=== PATIENT | male | born 1960 | race Hispanic/Latino ===

== ENCOUNTER 2017-12-31 11:03 | Observation (INO) | payer OTHER ==
[2017-12-31 12:02] LABS: BUN Blood Urea Nitrogen 11 mg/dL (7-18); Bicarbonate 26 mmol/L (21-32); Glucose Level 143 mg/dL (74-106); Potassium 3.8 mmol/L (3.5-5.1); Sodium Level 138 mmol/L (136-145); Troponin (Emerg Dept Use Only) < 0.02 ng/mL (0.0-0.045)
[2017-12-31] MEDS ORDERED: NA CHLORIDE 0.9% 1,000 ML ONE (12:04)
[2017-12-31 12:11] LABS: Absolute Lymphocytes (CBC) 2.8 K/uL (0.7-4.9); Absolute Monocytes 0.8 K/uL (0.1-1.3); Absolute Neutrophil 4.7 K/uL (1.8-8.0); Eosinophils % 2.1 % (0-4.4); Hematocrit 45.5 % (39.6-49.0); Lymphocytes % 32.7 % (15.3-44.8); MCH 30.3 pg (27.0-35.0); MCV 85.8 fL (80-100); MPV 8.3 fL (7.6-11.3); Monocytes % 8.8 % (3.3-12.3); RBC Red Blood Cell Count 5.31 M/uL (4.33-5.43)
--- NOTE | 2017-12-31 12:16 | RAD REPORT ---
EXAM DESCRIPTION: CT - CTHCSPWOC - 12/31/2017 11:53 am CLINICAL HISTORY: Syncope, fall, head and neck injury, found on ground COMPARISON: None. TECHNIQUE: Axial 5 mm thick images of the head were obtained. Axial 2 mm thick images of the cervic al spine were obtained with sagittal and coronal reconstruction images generated and reviewed. All CT scans are performed using dose optimization technique as appropriate and may include automated exposure control or mA/KV adjustment according to patient size. FINDINGS: No intracranial hemorrhage, mass, edema or acute intracranial finding. No suspicion for acute infarct ion. No cortical edema or sulcal effacement identified. Patient has mild atrophy. There is prominent diminished attenuation throughout cerebral hemispheric white matter. This extends into the basal gang marcelino and thalamus. There is questionable involvement in the brainstem. This is most likely chronic isc hemic change but is advanced for the patient's age. Mastoid air cells are clear. Ethmoid air cell muc osal thickening seen. No air-fluid level in the paranasal sinuses. No globe or orbit abnormality seen . Cervical body height and alignment are normal. No disk space narrowing. No fracture or acute bony abn ormality. Multilevel endplate spurring changes are present. No paraspinal mass or hematoma. IMPRESSION: No hemorrhage or acute intracranial finding. Mild atrophy and chronic ischemic changes a re evident. Chronic ischemic pattern is advanced for the patient's age. Cervical spine degenerative change without acute finding. Negative CT cervical spine examination for acute or significant finding.
--- NOTE | 2017-12-31 12:28 | RAD REPORT ---
EXAM DESCRIPTION: Ligia Single View12/31/2017 12:13 pm CLINICAL HISTORY: Shortness breath COMPARISON: November 2016 FINDINGS: The lungs appear clear of acute infiltrate. The heart is normal size. Prominence of media stinum is secondary to mediastinal fat IMPRESSION: No acute abnormalities displayed
--- NOTE | 2017-12-31 12:30 | RAD REPORT ---
EXAM DESCRIPTION: RAD - Shoulder Right 2 View - 12/31/2017 12:12 pm CLINICAL HISTORY: Right shoulder pain FINDINGS: No fracture or dislocation is seen. Mild to moderate osteoarthritis involves the acromiocl avicular joint
--- NOTE | 2017-12-31 13:32 | EDPHYS ---
Physician Documentation [facility] Name: Andrey Wells Age: 57 yrs Sex: Male : 1960 Arrival Date: 12/31/2017 Time: 11:09 Bed 20 Private MD: ED Physician Garry Palomares HPI: 12/31 16:07 This 57 yrs old Male presents to ER via EMS with complaints of syncope. gs 16:07 The patient has experienced syncope, became unresponsive. Onset: The symptoms/episode gs began/occurred acutely, just prior to arrival. Duration: This was a single episode. Context: the episode(s) was witnessed, by co-worker(s), occurred at work, occurred while the patient was walking. Associated injury: Head/face: Neck: Right upper extremity: anterior aspect of right shoulder, pain, tenderness. Associated signs and symptoms: Pertinent negatives: agitation, ataxia, chest pain. Current symptoms: Currently, the patient is not experiencing any symptoms. Historical: - Allergies: 11:22 No Known Allergies; ch - Home Meds: 11:22 Lyrica Oral 1 cap 2 times per day [Active]; Tylenol #3 Oral every 4-6 hours [Active]; ch - PMHx: 11:22 Back pain; Myocardial infarction; periphernal neuropathy; ch - PSHx: 11:22 back surg; ch - Immunization history:: Adult Immunizations up to date. - Social history:: Smoking status: Patient/guardian denies using tobacco. - Ebola Screening: : Patient negative for fever greater than or equal to 101.5 degrees Fahrenheit, and additional compatible Ebola Virus Disease symptoms Patient denies exposure to infectious person Patient denies travel to an Ebola-affected area in the 21 days before illness onset No symptoms or risks identified at this time. ROS: 16:07 All other systems are negative. gs Exam: 16:07 Head/Face: Normocephalic, atraumatic. Eyes: Pupils equal round and reactive to light, gs extra-ocular motions intact. Lids and lashes normal. Conjunctiva and sclera are non-icteric and not injected. Cornea within normal limits. Periorbital areas with no swelling, redness, or edema. ENT: Nares patent. No nasal discharge, no septal abnormalities noted. Tympanic membranes are normal and external auditory canals are clear. Oropharynx with no redness, swelling, or masses, exudates, or evidence of obstruction, uvula midline. Mucous membranes moist. Chest/axilla: Normal chest wall appearance and motion. Nontender with no deformity. No lesions are appreciated. Cardiovascular: Regular rate and rhythm with a normal S1 and S2. No gallops, murmurs, or rubs. Normal PMI, no JVD. No pulse deficits. Respiratory: Lungs have equal breath sounds bilaterally, clear to auscultation and percussion. No rales, rhonchi or wheezes noted. No increased work of breathing, no retractions or nasal flaring. Abdomen/GI: Soft, non-tender, with normal bowel sounds. No distension or tympany. No guarding or rebound. No evidence of tenderness throughout. Back: No spinal tenderness. No costovertebral tenderness. Full range of motion. Skin: Warm, dry with normal turgor. Normal color with no rashes, no lesions, and no evidence of cellulitis. MS/ Extremity: Pulses equal, no cyanosis. Neurovascular intact. Full, normal range of motion. Neuro: Awake and alert, GCS 15, oriented to person, place, time, and situation. Cranial nerves II-XII grossly intact. Motor strength 5/5 in all extremities. Sensory grossly intact. Cerebellar exam normal. Normal gait. 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 16:07 ECG was reviewed by the Attending Physician. Vital Signs: 11:22 BP 144 / 85; Pulse 106; Resp 22; Temp 98.8; Pulse Ox 99% on R/A; Weight 99.79 kg; ch Height 5 ft. 6 in. (167.64 cm); Pain 9/10; 12:46 BP 135 / 74; Pulse 91; Resp 18; Temp 98.3; Pulse Ox 99% on R/A; Pain 6/10; ch 14:04 BP 139 / 70; Pulse 90; Resp 18; Pulse Ox 97% on R/A; mh5 11:22 Body Mass Index 35.51 (99.79 kg, 167.64 cm) MDM: 11:15 Patient medically screened. 16:07 Differential Diagnosis: cardiac arrhythmia, cerebrovascular accident, idiopathic gs syncope, vasovagal episode. Data reviewed: vital signs, nurses notes, lab test result(s), EKG, radiologic studies. Counseling: I had a detailed discussion with the patient and/or guardian regarding: the historical points, exam findings, and any diagnostic results supporting the discharge/admit diagnosis, lab results, radiology results, the need for further work-up and treatment in the hospital. Response to treatment: the patient's symptoms have markedly improved after treatment, and as a result, I will admit patient. 12/31 11:16 Order name: Basic Metabolic Panel; Complete Time: 12:23 12/31 11:16 Order name: CBC with Diff; Complete Time: : 12/31 11:16 Order name: Troponin (emerg Dept Use Only); Complete Time: 12: 12/31 11:16 Order name: XRAY Chest (1 view); Complete Time: 12: 12/31 15:17 Order name: Urine Dipstick--Ancillary (enter results); Complete Time: 16:06 bd 12/31 16:05 Order name: Glucose, Ancillary Testing; Complete Time: 16:06 EDNE 12/31 11:16 Order name: EKG; Complete Time: 11: 12/31 11:16 Order name: Cardiac monitoring; Complete Time: 11: 12/31 11:16 Order name: Shoulder Right (2 View) XRAY; Complete Time: 12: 12/31 11:42 Order name: Head C Spine Mpr Wo Con; Complete Time: 12:23 EDNE 12/31 11:16 Order name: EKG - Nurse/Tech; Complete Time: 11: 12/31 11:16 Order name: IV Saline Lock; Complete Time: 11: 12/31 11:16 Order name: Labs collected and sent; Complete Time: 11: 12/31 11:16 Order name: O2 Per Protocol; Complete Time: 11: 12/31 11:16 Order name: O2 Sat Monitoring; Complete Time: : 12/31 11:38 Order name: Finger Stick; Complete Time: 11:38 ch EC:07 Rate is 108 beats/min. Rhythm is regular, Sinus tachycardia. PA interval is normal. QRS gs interval is normal. QT interval is normal. T waves are Flattened. Clinical impression: NSR w/ Non-specific ST/T Changes. Interpreted by me. Administered Medications: 12:20 Drug: NS 0.9% 1000 ml Route: IV; Rate: 1 bolus; Site: left antecubital; 14:09 Follow up: IV Status: Completed infusion; IV Intake: 1000ml 15:11 Drug: Tylenol #3 (300 mg-30 mg) 1 tablet Route: PO; 15:37 Follow up: Response: No adverse reaction Point of Care Testing: Blood Glucose: 11:22 Blood Glucose: 141 mg/dL; Ranges: Critical Glucose Levels:Adult <50 mg/dl or >400 mg/dl <40 mg/dl or >180 mg/dl Disposition: 12/31/17 13:31 Hospitalization ordered by Avani Bridges for Inpatient Admission. Preliminary diagnosis is Syncope and collapse. - Bed requested for Telemetry/MedSurg (observation). - Status is Inpatient Admission. - Condition is Stable. - Problem is new. - Symptoms have improved. UTI on Admission? No Signatures: Dispatcher [employer] EDNE Gini Saldivar Aleshia Cerrato RN RN Garry Palomares MD MD Corrections: (The following items were deleted from the chart) 11:42 11:16 Head Brain Wo Cont+CT.RAD.BRZ ordered. EDMS EDMS 11:53 11:33 C Spine Wo Con+CT.RAD.BRZ ordered. EDNE EDMS 15:21 13:31 Hospitalization Ordered by Avani Bridges MD for Inpatient Admission. Preliminary diagnosis is Syncope and collapse. Bed requested for Telemetry/MedSurg (observation). Status is Inpatient Admission. Condition is Stable. Problem is new. Symptoms have improved. UTI on Admission? No. gs 16:07 15:21 12/31/2017 13:31 Hospitalization Ordered by Avani Bridges MD for Inpatient Admission. Preliminary diagnosis is Syncope and collapse. Bed requested for Telemetry/MedSurg (observation). Status is Inpatient Admission. Condition is Stable. Problem is new. Symptoms have improved. UTI on Admission? No. bd
--- NOTE | 2017-12-31 13:32 | ER ---
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 Presenting complaint: EMS states: toned out of syncope, pt was found laying down on the cement. IV initiated to L AC. pt was hyperventilating and appeared to be having a panic attack. c/o neck head and back pain. unable to close c collar around pt neck due to pt anatomy. c spine and spinal precautions initiated. +LOC, pt did not know why he was laying on the ground. Transition of care: patient was not received from another setting of care. Onset of symptoms was December 31, 2017 at 10:00. Risk Assessment: Do you want to hurt yourself or someone else? Patient reports no desire to harm self or others. Initial Sepsis Screen: Does the patient meet any 2 criteria? No. Patient's initial sepsis screen is negative. Does the patient have a suspected source of infection? No. Patient's initial sepsis screen is negative. Care prior to arrival: IV initiated. 20 GA, in the left antecubital area. 11:18 Method Of Arrival: EMS: [facility] 11:18 Acuity: KANDY 3 ch Triage Assessment: 11:22 General: Appears in no apparent distress. comfortable, Behavior is calm, cooperative, ch appropriate for age. Pain: Complains of pain in occipital area, base of the skull, back of neck and back Pain does not radiate. Pain currently is 9 out of 10 on a pain scale. Pain began suddenly. Neuro: Level of Consciousness is awake, alert, obeys commands, Oriented to person, place, time, situation, Equipment Maintenance Technician are equal bilaterally Moves all extremities. Speech is normal, Facial symmetry appears normal, Facial symmetry: tongue is midline, Pupils are PERRLA, Reports headache occipital area. Cardiovascular: Heart tones S1 S2 present Capillary refill < 3 seconds in bilateral fingers toes Clubbing of nail beds is absent Patient's skin is warm and dry. Pulses are all present. Edema is absent. Respiratory: Airway is patent Respiratory effort is even, unlabored, Breath sounds are clear bilaterally. GI: No signs and/or symptoms were reported involving the gastrointestinal system. Derm: Skin is pink, warm \\T\\ dry. Historical: - Allergies: : No Known Allergies; ch - Home Meds: : Lyrica Oral 1 cap 2 times per day [Active]; Tylenol #3 Oral every 4-6 hours [Active]; ch - PMHx: 11: Back pain; Myocardial infarction; periphernal neuropathy; ch - PSHx: : back surg; ch - Immunization history:: Adult Immunizations up to date. - Social history:: Smoking status: Patient/guardian denies using tobacco. - Ebola Screening: : Patient negative for fever greater than or equal to 101.5 degrees Fahrenheit, and additional compatible Ebola Virus Disease symptoms Patient denies exposure to infectious person Patient denies travel to an Ebola-affected area in the 21 days before illness onset No symptoms or risks identified at this time. Screenin:24 Abuse screen: Denies threats or abuse. Denies injuries from another. Nutritional ch screening: No deficits noted. Tuberculosis screening: No symptoms or risk factors identified. Fall Risk None identified. Assessment: 11:24 Reassessment: Patient appears in no apparent distress at this time. No changes from previously documented assessment. Patient and/or family updated on plan of care and expected duration. Pain level reassessed. Patient is alert, oriented x 3, equal unlabored respirations, skin warm/dry/pink. 11:37 Reassessment: Patient appears in no apparent distress at this time. Patient and/or ch family updated on plan of care and expected duration. Pain level reassessed. Patient is alert, oriented x 3, equal unlabored respirations, skin warm/dry/pink. pt states he feels a little better. pt transported to CT now, blood sent to lab. 12:03 Reassessment: Patient appears in no apparent distress at this time. awaiting pt return ch from radiology. 12:46 Reassessment: Patient appears in no apparent distress at this time. pt c/o headache ch still. erp notified, awaiting ct results. 13:06 Reassessment: Patient appears in no apparent distress at this time. Patient and/or ch family updated on plan of care and expected duration. Pain level reassessed. Patient is alert, oriented x 3, equal unlabored respirations, skin warm/dry/pink. awaiting erp to review results with pt. no s/s of distress. erp in room now to discuss results. 14:07 Reassessment: Patient appears in no apparent distress at this time. Patient and/or ch family updated on plan of care and expected duration. Pain level reassessed. Patient is alert, oriented x 3, equal unlabored respirations, skin warm/dry/pink. Patient states feeling better. Patient states symptoms have improved. 15:17 Reassessment: Patient appears in no apparent distress at this time. Patient and/or ch family updated on plan of care and expected duration. Pain level reassessed. Patient is alert, oriented x 3, equal unlabored respirations, skin warm/dry/pink. pt states he has had a headache since Saturday and its not any better now. erp notified, pt requests for "stronger pain medication". awaiting hospitalist to come round on pt. 15:38 Reassessment: Patient appears in no apparent distress at this time. Patient and/or ch family updated on plan of care and expected duration. Pain level reassessed. Patient is alert, oriented x 3, equal unlabored respirations, skin warm/dry/pink. report called to Marilyn. Vital Signs: 11:22 BP 144 / 85; Pulse 106; Resp 22; Temp 98.8; Pulse Ox 99% on R/A; Weight 99.79 kg; Height 5 ft. 6 in. (167.64 cm); Pain 9/10; 12:46 BP 135 / 74; Pulse 91; Resp 18; Temp 98.3; Pulse Ox 99% on R/A; Pain 6/10; ch 14:04 BP 139 / 70; Pulse 90; Resp 18; Pulse Ox 97% on R/A; mh5 11:22 Body Mass Index 35.51 (99.79 kg, 167.64 cm) ED Course: 11:09 Patient arrived in ED. iw 11:10 Garry Palomares MD is Attending Physician. gs 11:15 EKG done, by nanotechnology technician. reviewed by Garry Palomares MD. at1 11:18 Aleshia Cerrato, ROCKY is Primary Nurse. 11:21 Triage completed. 11:22 Arm band placed on left wrist. Patient placed in an exam room, on a stretcher, on court recording monitor, on pulse oximetry. EKG completed in triage. Results shown to MD. 11:24 Maintain EMS IV. Dressing intact. Good blood return noted. Site clean \\T\\ dry. Gauge \\T\\ site: 20G L AC. 11:24 maintained C spine and spinal precuations, pt educated on not moving his head and neck. 11:24 Patient has correct armband on for positive identification. Placed in gown. Bed in low position. Call light in reach. Side rails up X2. Adult w/ patient. environmental monitoring technician on. Pulse ox on. NIBP on. Warm blanket given. 11:38 Basic Metabolic Panel Sent. 11:38 CBC with Diff Sent. 11:38 Troponin (emerg Dept Use Only) Sent. 11:53 Head C Spine Mpr Wo Con In Process Unspecified. EDMS 12:09 XRAY Chest (1 view) In Process Unspecified. EDMS 12:09 Shoulder Right (2 View) XRAY In Process Unspecified. EDMS 13:31 Avani Bridges MD is Hospitalizing Provider. 15:39 No provider procedures requiring assistance completed. Patient admitted, IV remains in place. Administered Medications: 12:20 Drug: NS 0.9% 1000 ml Route: IV; Rate: 1 bolus; Site: left antecubital; 14:09 Follow up: IV Status: Completed infusion; IV Intake: 1000ml 15:11 Drug: Tylenol #3 (300 mg-30 mg) 1 tablet Route: PO; 15:37 Follow up: Response: No adverse reaction Point of Care Testing: Blood Glucose: 11:22 Blood Glucose: 141 mg/dL; Ranges: Intake: 14:09 IV: 1000ml; Total: 1000ml. Outcome: 13:31 Decision to Hospitalize by Provider. gs 15:39 Admitted to Med/surg accompanied by tech, via wheelchair, room 419, Report called to Marilyn 15:39 Condition: stable 15:39 Instructed on the need for admit. 16:07 Patient left the ED. Signatures: Dispatcher [employer] EDAleshia Cr RN RN ch Williams, Irene, RN RN Marilee Larson, office administration instructor EKG Tat1 Annalise Guardado 5 Palomares, Garry, MD MD gs
[2017-12-31] MEDS ORDERED: CODEINE 30MG/APAP 300MG TAB ONE (15:11)
[2017-12-31 15:27] LABS: Urine Blood NEGATIVE (NEG); Urine Glucose NEGATIVE (NEG); Urine Protein TRACE (NEG); Urine Specific Gravity 1.025 (1.005-1.030)
--- NOTE | 2017-12-31 15:27 | EKG ---
Test Date: 2017-12-31 Test Time: 11:13:54 Auto Leasing Manager: DENG MEASUREMENT RESULTS: Intervals: Rate: 108 DE: 158 QRSD: 82 QT: 358 QTc: 479 [place]: P: 41 DE: 158 QRS: 3 T: -1 INTERPRETIVE STATEMENTS: Sinus tachycardia Possible Left atrial enlargement Borderline ECG Compared to ECG 11/19/2016 01:40:14 Sinus rhythm no longer present T-wave abnormality no longer present Electronically Signed On 12-31-17 15:25:23 CDT by Hiro Clement
[2017-12-31] MEDS ORDERED: ONDANSETRON 4 MG/2 ML VIAL IV PRN (16:17)
--- NOTE | 2017-12-31 16:36 | P.HP ---
Certification for Inpatient Patient admitted to: Observation With expected LOS: <2 Midnights Patient will require the following post-hospital care: None Practitioner: I am a practitioner with admitting privileges, knowledge of patient current condition, hospital course, and medical plan of care. Services: Services provided to patient in accordance with Admission requirements found in Title 42 Section 412.3 of the Code of Federal Regulations Patient History Date of Service: 12/31/17 Primary Care Provider: Efren Bacon Reason for admission: Syncope History of Present Illness: This is a 49-year-old male with significant past medical history of back surgery presented to the ER after having an syncopal episode at work today. Patient stated that on Saturday patient started having some headache with nausea vomiting and abdominal pain and then this morning when he went to work he had a syncopal episode where he blacked out and fell. Patient does not remember the episode and states that he did not know that he fell he was found down by his ramp manager who brought him to the ER for further workup. Patient stated that similar episode happened to him in the past year ago where he came to the ER and nothing was found and was discharged home with the diagnosis of vasovagal syncope. Patient stated that usually he is in general state of health until this episode started happening. Patient denies having any fever chills chest pain shortness of breath or any other associated symptoms. Patient denies having any neurological deficits at this time as well. Allergies No Known Allergies Allergy (Unverified 11/19/16 03:07) Home Medications: Acetaminophen with Codeine [Acetaminophen-Cod #3 Tablet] 1 tab PO Q6HP PRN 11/19 Pregabalin [Lyrica*] 50 mg PO BID 11/19/16 - Past Medical/Surgical History Diabetic: No -: obesity -: NM -: chronic back pain - Family History Father -: Diabetes, Stroke Brother -: Cancer Mother Notes: Lupus Sister Notes: Lupus - Social History Alcohol use: Yes CD- Drugs: No Caffeine use: No Review of Systems 10-point ROS is otherwise unremarkable Physical Examination - Physical Exam General: Alert, In no apparent distress HEENT: Atraumatic, PERRLA, Mucous membr. moist/pink, EOMI, Sclerae nonicteric Neck: Supple, 2+ carotid pulse no bruit, No LAD, Without JVD or thyroid abnormality Respiratory: Clear to auscultation bilaterally, Normal air movement Cardiovascular: Regular rate/rhythm, Normal S1 S2 Gastrointestinal: Normal bowel sounds, No tenderness Musculoskeletal: No tenderness Integumentary: No rashes Neurological: Normal gait, Normal speech, Normal strength at 5/5 x4 extr, Normal tone, Normal affect Lymphatics: No axilla or inguinal lymphadenopathy - Studies Laboratory Data (last 24 hrs) 12/31/17 11:15: WBC 8.6, Hgb 16.1, Hct 45.5, Plt Count 304 12/31/17 11:15: Sodium 138, Potassium 3.8, BUN 11, Creatinine 1.10, Glucose 143 H Assessment and Plan - Problems (Diagnosis) (1) Syncopal episodes Current Visit: Yes Status: Acute Plan: 1 syncopal episode most likely vasovagal symptom at this time however will rule out acute abnormality -head CT is negative. Will get MRI if other workup is negative -will get carotid Doppler and echocardiogram -will get vitamin B12 vitamin-D RPR A1c and lipid -will also get orthostatics vitals at this time -physical therapy consulted. Fall precautions given. Qualifiers: Syncope type: unspecified Qualified Code(s): R55 - Syncope and collapse (2) Chronic back pain Onset Date: 11/19/16 Current Visit: No Status: Chronic Plan: Patient is currently on gabapentin will hold until we have the pathology for his syncopal episode Qualifiers: Back pain location: back pain in unspecified location Back pain laterality : bilateral Qualified Code(s): M54.9 - Dorsalgia, unspecified; G89.29 - Other chronic pain (3) Obesity Onset Date: 11/19/16 Current Visit: No Status: Chronic Qualifiers: Obesity type: due to excess calories Obesity classification: unspecified obesity classification Serious obesity comorbidity presence: without serious comorbidity Qualified Code(s): E66.09 - Other obesity due to excess calories (4) Tobacco abuse Onset Date: 11/19/16 Current Visit: No Status: Chronic Discharge Plan: Home Plan to discharge in: 48 Hours - Advance Directives Does patient have a Living Will: No Does patient have a Durable POA for Healthcare: No - Code Status/Comfort Care Code Status Assessed: Yes Critical Care: No
[2017-12-31 16:51] VITALS: O2SAT 97; BMI 34.0
[2017-12-31 17:27] LABS: RPR Titer ND
[2017-12-31] MEDS ORDERED: POTASSIUM CL SA 10 MEQ TAB PO ONE (18:00)
[2017-12-31] MEDS: NA CHLORIDE 0.9% 1,000 ML IV SCH ×2 (18:01→19:56)
[2017-12-31] MEDS: ACETAMINOPHEN 500 MG TAB PO PRN ×2 (18:03→22:09)
[2017-12-31 19:37] LABS: Urine Appearance CLEAR; Urine Bilirubin NEGATIVE (NEG); Urine Blood NEGATIVE (NEG); Urine Color YELLOW; Urine Glucose TRACE (NEG); Urine Protein NEGATIVE (NEG); Urine Specific Gravity 1.025 (1.005-1.030); Urine pH 5.5 (5.0-7.0)
[2017-12-31 19:40] LABS: Barbiturates NEGATIVE (NEGATIVE); Benzodiazepines NEGATIVE (NEGATIVE); Cocaine NEGATIVE (NEGATIVE); METHAMPHETAM NEGATIVE (NEGATIVE); Methadone NEGATIVE (NEGATIVE); Opiates POSITIVE (NEGATIVE); Phencyclidine NEGATIVE (NEGATIVE); THC Cannibis NEGATIVE (NEGATIVE)
[2017-12-31 20:03] LABS: Urine Microscopic Reflex NO UMIC
--- NOTE | 2017-12-31 20:28 | RAD REPORT ---
EXAM DESCRIPTION: - CP - 12/31/2017 7:37 pm CLINICAL HISTORY: Syncope COMPARISON: None. TECHNIQUE: Real-time sonographic evaluation of both carotid systems was performed. Doppler interroga tion was performed with waveform tracing bilaterally. FINDINGS: Normal high resistance waveforms are noted in both external carotid arteries. The common c arotid arteries and internal carotid arteries show normal low resistance waveforms. Mild calcified plaquing changes are present. There is no significant luminal narrowing. No dissection changes are seen. Peak systolic and end diastolic velocity values and the ICA/CCA ratios are in the non-hemodynamically significant range. Antegrade flow seen in both vertebral arteries. Velocity values and ratios were recorded and are retained in the patient's imaging records. IMPRESSION: Mild carotid bulb plaquing changes are present. No evidence of a hemodynamically significant stenosis.
[2017-12-31 23:52] LABS: RPR (Rapid Plasma Reagin) NON-REACT (NON-REACT)
[2018-01-01] MEDS: ACETAMINOPHEN 500 MG TAB PO PRN ×5 (03:03→21:36)
[2018-01-01 06:18] LABS: ALT/SGPT 42 U/L (12-78); AST/SGOT 33 U/L (15-37); Albumin 3.1 g/dL (3.4-5.0); Alkaline Phosphatase 80 U/L (45-117); BUN Blood Urea Nitrogen 9 mg/dL (7-18); Bicarbonate 27 mmol/L (21-32); Bilirubin Total 0.3 mg/dL (0.2-1.0); Glucose Level 121 mg/dL (74-106); Magnesium 2.4 mg/dL (1.8-2.4); Phosphorus 3.3 mg/dL (2.5-4.9); Potassium 4.2 mmol/L (3.5-5.1); Protein, Total 7.1 g/dL (6.4-8.2); Sodium Level 139 mmol/L (136-145)
[2018-01-01 06:39] LABS: Absolute Lymphocytes (CBC) 3.6 K/uL (0.7-4.9); Absolute Monocytes 0.7 K/uL (0.1-1.3); Absolute Neutrophil 3.2 K/uL (1.8-8.0); Eosinophils % 3.6 % (0-4.4); Hematocrit 40.8 % (39.6-49.0); Lymphocytes % 46.2 % (15.3-44.8); MCH 30.2 pg (27.0-35.0); MCV 86.4 fL (80-100); MPV 8.1 fL (7.6-11.3); Monocytes % 8.6 % (3.3-12.3); RBC Red Blood Cell Count 4.73 M/uL (4.33-5.43)
--- NOTE | 2018-01-01 11:51 | P.PN ---
Subjective Date of Service: 01/01/18 Primary Care Provider: [facility] Chief Complaint: Syncope pt seen and examined at bedside with RN. Complain of having BOO still. Case DW Patient and family at bedside. Awaiting MRI at this time Review of Systems 10-point ROS is otherwise unremarkable Physical Examination - Vital Signs Temperature: 97.5 F Blood Pressure: 149/77 Pulse: 72 Respirations: 16 Pulse Ox (%): 94 - Physical Exam General: Alert, In no apparent distress HEENT: Atraumatic, PERRLA, EOMI Neck: Supple, JVD not distended Respiratory: Clear to auscultation bilaterally, Normal air movement Cardiovascular: Regular rate/rhythm, Normal S1 S2 Gastrointestinal: Normal bowel sounds, No tenderness Musculoskeletal: No tenderness Integumentary: No rashes Neurological: Normal speech, Normal tone, Normal affect Lymphatics: No axilla or inguinal lymphadenopathy - Studies Laboratory Data (last 24 hrs) 12/31/17 11:15: WBC 8.6, Hgb 16.1, Hct 45.5, Plt Count 304 12/31/17 11:15: Sodium 138, Potassium 3.8, BUN 11, Creatinine 1.10, Glucose 143 H Medications List Reviewed: Yes Assessment And Plan - Current Problems (Diagnosis) (1) Syncopal episodes Onset Date: 01/01/18 Current Visit: Yes Status: Acute Plan: 1 syncopal episode most likely vasovagal symptom at this time however will rule out acute abnormality -head CT is negative. MRI pending at time. -Pending carotid Doppler and echocardiogram -Pending vitamin B12 vitamin-D RPR A1c and lipid -physical therapy consulted. Fall precautions given. Qualifiers: Syncope type: unspecified Qualified Code(s): R55 - Syncope and collapse (2) Chronic back pain Onset Date: 11/19/16 Current Visit: No Status: Chronic Plan: Patient is currently on gabapentin will hold until we have the pathology for his syncopal episode Qualifiers: Back pain location: back pain in unspecified location Back pain laterality : bilateral Qualified Code(s): M54.9 - Dorsalgia, unspecified; G89.29 - Other chronic pain (3) Obesity Onset Date: 11/19/16 Current Visit: No Status: Chronic Qualifiers: Obesity type: due to excess calories Obesity classification: unspecified obesity classification Serious obesity comorbidity presence: without serious comorbidity Qualified Code(s): E66.09 - Other obesity due to excess calories (4) Tobacco abuse Onset Date: 11/19/16 Current Visit: No Status: Chronic Discharge Plan: Home Plan to discharge in: 48 Hours - Code Status/Comfort Care Code Status Assessed: Yes Critical Care: No
[2018-01-01] MEDS: NA CHLORIDE 0.9% 1,000 ML IV SCH ×2 (12:17→21:37)
--- NOTE | 2018-01-01 12:44 | ECHO ---
HEIGHT: 5 ft 1 in WEIGHT: 180 lb 0 oz DATE OF STUDY: 01/01/[address]: Avani Bridges MD 2-DIMENSIONAL: YES M.MODE: YES DOPPLER: YES COLOR FLOW: YES TDS: NO PORTABLE: NO DEFINITY: NO BUBBLE STUDY: NO DIAGNOSIS: SYNCOPE CARDIAC HISTORY: CATHERIZATION: NO SURGERY: NO PROSTHETIC VALVE: NO PACEMAKER: NO MEASUREMENTS (cm) DIASTOLIC (NORMALS) SYSTOLIC (NORMALS) IVSd 1.0 (0.6-1.2) LA Diam 4.1 (1.9-4.0) LVEF 67% LVIDd 5.2 (3.5-5.7) LVIDs 3.2 (2.0-3.5) %FS 37% LVPWd 1.1 (0.6-1.2) Ao Diam 3.3 (2.0-3.7) 2 DIMENSIONAL ASSESSMENT: RIGHT ATRIUM: NORMAL LEFT ATRIUM: MILDLY DILATED RIGHT VENTRICLE: NORMAL LEFT VENTRICLE: NORMAL TRICUSPID VALVE: NORMAL MITRAL VALVE: NORMAL PULMONIC VALVE: NORMAL AORTIC VALVE: NORMAL PERICARDIAL EFFUSION: NONE AORTIC ROOT: NORMAL LEFT VENTRICULAR WALL MOTION: NORMAL DOPPLER/COLOR FLOW: NORMAL COMMENTS: MILDLY DILATED LEFT ATRIUM, OTHERWISE NORMAL 2D ECHOCARDIOGRAM WITH DOPPLER. TECHNOLOGIST: Julianna NUÑEZ
--- NOTE | 2018-01-01 16:44 | RAD REPORT ---
EXAM DESCRIPTION: MRI - Brain W/Wo Cont - 01/01/2018 4:16 pm CLINICAL HISTORY: Headache CVA COMPARISON: MRA Head Wo Cont dated 01/01/2018; MRA Neck W/Wo Cont dated 01/01/2018; Head C Spine Mpr W o Con dated 12/31/2017; Carotid Artery Bilateral dated 12/31/2017 TECHNIQUE: Multi-sequence, multiplanar MR imaging of the brain was performed with contrast. FINDINGS: No intracranial hemorrhage, hydrocephalus, extra-axial fluid collection or acute infarctio n.Moderate areas of T2 and FLAIR hyperintensity in the periventricular region and deep white matter i s noted. No edema or shift of midline structures. No intracranial mass. DWI is negative for acute CVA . The midline structures are normally formed. Mild mucoperiosteal thickening is seen involving the ethm oid air cells and both sphenoid sinuses. Post-contrast images show no abnormal enhancement to suggest tumor or infection. IMPRESSION: Areas of T2 and FLAIR hyperintensity in the periventricular and deep white matter noted, favored to represent somewhat advanced for age chronic microvascular ischemic changes. No acute CVA identified. No pathologic post-contrast enhancement suspected.
--- NOTE | 2018-01-01 16:48 | RAD REPORT ---
EXAM DESCRIPTION: MRI - MRA Neck W/Wo Cont - 01/01/2018 4:16 pm CLINICAL HISTORY: BOO CVA COMPARISON: Carotid Artery Bilateral dated 12/31/2017 FINDINGS: Contrast enhance 2D [id number] MR angiography of the neck vessels was performed. Moderate narrowing of the left carotid bulb is identified with luminal narrowing estimated at 50-60%. No significant right-sided carotid stenosis identified. Antegrade flow is seen in both vertebral arteries. IMPRESSION: Moderate atherosclerotic narrowing of the left carotid bulb is seen estimated at 50-60%.
--- NOTE | 2018-01-01 18:04 | RAD REPORT ---
EXAM DESCRIPTION: MRI - MRA Head Wo Cont - 01/01/2018 4:15 pm CLINICAL HISTORY: Syncope COMPARISON: None. TECHNIQUE: Magnetic resonance angiogram of the head was performed. 3D MIPS reconstruction performed FINDINGS: The visualized anterior cerebral, middle cerebral, posterior cerebral, basilar and distal internal carotid arteries do not demonstrate a significant stenosis. An aneurysm is not seen IMPRESSION: Unremarkable MRA head
[2018-01-02] MEDS: ACETAMINOPHEN 500 MG TAB PO PRN ×2 (02:25→09:12)
[2018-01-02 06:40] LABS: Absolute Lymphocytes (CBC) 3.6 K/uL (0.7-4.9); Absolute Monocytes 0.7 K/uL (0.1-1.3); Absolute Neutrophil 3.5 K/uL (1.8-8.0); Basophils % 1.2 % (0-1.3); Eosinophils % 3.5 % (0-4.4); Hematocrit 42.1 % (39.6-49.0); Lymphocytes % 43.7 % (15.3-44.8); MCH 30.3 pg (27.0-35.0); MCV 86.6 fL (80-100); MPV 8.5 fL (7.6-11.3); RBC Red Blood Cell Count 4.86 M/uL (4.33-5.43)
[2018-01-02 06:48] LABS: ALT/SGPT 42 U/L (12-78); AST/SGOT 33 U/L (15-37); Albumin 3.2 g/dL (3.4-5.0); Alkaline Phosphatase 76 U/L (45-117); BUN Blood Urea Nitrogen 9 mg/dL (7-18); Bicarbonate 26 mmol/L (21-32); Bilirubin Total 0.3 mg/dL (0.2-1.0); Glucose Level 107 mg/dL (74-106); Protein, Total 7.1 g/dL (6.4-8.2); Sodium Level 137 mmol/L (136-145)
[2018-01-02] MEDS: NA CHLORIDE 0.9% 1,000 ML IV SCH ×2 (08:17→09:19)
[2018-01-02 11:16] VITALS: BP 158/85; TEMP 97.5
--- NOTE | 2018-01-02 14:11 | P.SSS ---
Patient History Date of Service: 01/02/18 Primary Care Provider: [place] Ar[facility] Reason for admission: Syncope History of Present Illness: This is a 49-year-old male with significant past medical history of back surgery presented to the ER after having an syncopal episode at work today. Patient stated that on Saturday patient started having some headache with nausea vomiting and abdominal pain and then this morning when he went to work he had a syncopal episode where he blacked out and fell. 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 Patient stated that similar episode happened to him in the past year ago where he came to the ER and nothing was found and was discharged home with the diagnosis of vasovagal syncope. Patient stated that usually he is in general state of health until this episode started happening. Patient denies having any fever chills chest pain shortness of breath or any other associated symptoms. Patient denies having any neurological deficits at this time as well. Allergies No Known Allergies Allergy (Verified 12/31/17 19:00) Home Medications: Acetaminophen with Codeine [Acetaminophen-Cod #3 Tablet] 1 tab PO Q6HP PRN 11/19 Pregabalin [Lyrica*] 50 mg PO BID 11/19/16 Aspirin 81 mg PO DAILY #30 tab.chew 01/02/18 Atorvastatin Calcium [Lipitor] 40 mg PO BEDTIME #30 tab 01/02/18 - Past Medical/Surgical History Has patient received pneumonia vaccine in the past: No Diabetic: No -: obesity -: NM -: chronic back pain -: Peripheral neuropathy -: Back surgery - Family History Father -: Diabetes, Stroke Brother -: Cancer Mother Notes: Lupus Sister History Unknown: Yes Notes: Lupus - Social History Smoking Status: Current some day smoker Alcohol use: Yes CD- Drugs: No Caffeine use: No Place of Residence: Home Review of Systems 10-point ROS is otherwise unremarkable Physical Examination - Vital Signs Temperature: 97.5 F Blood Pressure: 158/85 Pulse: 74 Respirations: 18 Pulse Ox (%): 95 - Physical Exam General: Alert, In no apparent distress HEENT: Atraumatic, PERRLA, Mucous membr. moist/pink, EOMI, Sclerae nonicteric Neck: Supple, 2+ carotid pulse no bruit, No LAD, Without JVD or thyroid abnormality Respiratory: Clear to auscultation bilaterally, Normal air movement Cardiovascular: Regular rate/rhythm, Normal S1 S2 Gastrointestinal: Normal bowel sounds, No tenderness Musculoskeletal: No tenderness Integumentary: No rashes Neurological: Normal gait, Normal speech, Normal strength at 5/5 x4 extr, Normal tone, Normal affect Lymphatics: No axilla or inguinal lymphadenopathy - Diagnosis (Problem(s)) (1) Syncopal episodes Onset Date: 01/01/18 Status: Acute Qualifiers: Syncope type: unspecified Qualified Code(s): R55 - Syncope and collapse (2) Chronic back pain Onset Date: 11/19/16 Status: Chronic Qualifiers: Back pain location: back pain in unspecified location Back pain laterality : bilateral Qualified Code(s): M54.9 - Dorsalgia, unspecified; G89.29 - Other chronic pain (3) Obesity Onset Date: 11/19/16 Status: Chronic Qualifiers: Obesity type: due to excess calories Obesity classification: unspecified obesity classification Serious obesity comorbidity presence: without serious comorbidity Qualified Code(s): E66.09 - Other obesity due to excess calories (4) Tobacco abuse Onset Date: 11/19/16 Status: Chronic Treatment Summary: Overall during the hospital stay patient remained stable The patient was initially admitted to the hospital for syncopal episode. Patient had extensive workup done here in the hospital which includes head CT, MRI, echocardiogram, carotid Doppler, an extensive lab work as well. Patient imaging studies were all within normal limits without any acute abnormalities. MRI of the head was consistent with chronic ischemic changes with no acute CVA. Carotid Doppler was consistent with left-sided carotid bulb with 50-60% stenosis. Echocardiogram was within normal limits. Lab work was negative except hyperlipidemia. Patient orthostatics hypertension was also checked here in the hospital. Patient syncopal episode was most likely secondary to vasovagal symptoms due to high blood pressure in her along with working out in the heat. Patient was educated extensively on the need for diet and exercise and starting medications for stroke prevention in the future with aspirin and Lipitor. Patient's family demonstrated understanding and thus was discharged home under stable condition. Patient's blood pressure did stabilize here in the hospital thus he was not discharged on any blood pressure medication. Patient was asked to follow up with his primary care provider with a blood pressure log on if needed will need to be started on blood pressure medication at that time. Patient was also educated extensively on previous chronic ischemic changes on his MRI and the need for continued Lipitor and aspirin and the need to lose some weight to decrease the risk for CVA in the future. Patient Mr. harris and thus was discharged home under stable condition - Disposition Disposition: ROUTINE DISCHARGE Condition: GOOD Patient Discharge Instructions: Please f.u with PCP and cardiology in 1 week post discharge. Please f.u with neurology in 1 month post discharge if no resolution of BOO. New medication. ASA daily. Lipitor 40mg daily Diet: Regular Activity: Ad allan
== END 2018-01-02 13:47 | disposition home or self-care (01) ==
LOC: ER 11:03 → 4TH 15:55
PROVIDERS: ADMIT Family Medicine; ATTEND Family Medicine
DX: R55 Syncope and collapse (principal); G89.29 Other chronic pain; M54.89 Other dorsalgia; I25.2 Old myocardial infarction; E66.9 Obesity, unspecified; Z68.34 Body mass index [BMI] 34.0-34.9, adult; F17.210 Nicotine dependence, cigarettes, uncomplicated; Z79.82 Long term (current) use of aspirin
CPT/HCPCS: 36415 ×3; 70450; 70544; 70549; 70553; 71045; 72125; 73030; 80048; 80053 ×2; 80061; 80307 ×8; 81003 ×2; 82306; 82607; 82962; 83036; 83735; 84100; 84484; 85025 ×3; 86592; 87086; 87088; 93005; 93306; 93880; 96360; 96361; 99285; A9577; G0378 ×2; J7030 ×6

== ENCOUNTER 2019-03-24 18:35 | Emergency (ER) | payer OTHER ==
--- NOTE | 2019-03-24 19:03 | RAD REPORT ---
EXAM DESCRIPTION: CT - [id number] - 03/24/2019 6:47 pm CLINICAL HISTORY: Trauma, blunt force trauma, head and neck injury, head and neck pain COMPARISON: CT study December 2017 TECHNIQUE: Axial 5 mm thick images of the head were obtained. Axial 2 mm thick images of the cervic al spine were obtained with sagittal and coronal reconstruction images generated and reviewed. All CT scans are performed using dose optimization technique as appropriate and may include automated exposure control or mA/KV adjustment according to patient size. FINDINGS: No intracranial hemorrhage, mass, edema or acute intracranial finding. No acute cortical based infarc tion. No cortical edema or sulcal effacement. No extra-axial fluid collections. Mastoid air cells and paranasal sinuses are clear. No globe or orbit abnormality seen. Diminished attenuation throughout t he white matter is present similar to comparison. This chronic ischemic pattern is prominent for age. Mild volume loss changes are also evident. Cervical body height and alignment are normal. No disk space narrowing. No fracture or acute bony abn ormality. Patient has very large midline and left-side anterior spurring. There is bridging across C4 -T1. Central canal detail is inherently limited. No paraspinal mass or hematoma. IMPRESSION: No hemorrhage, edema or other acute intracranial finding. Patient has mild atrophy and moderate chronic ischemic changes that are stable from 2018 but are cons idered advanced for age. Prominent cervical spine degenerative change similar to comparison. No acute finding.
[2019-03-24] MEDS ORDERED: ONDANSETRON 4 MG/2 ML VIAL ONE (19:13)
[2019-03-24] MEDS ORDERED: FENTANYL CITR 100 MCG/2 ML ONE (19:13)
--- NOTE | 2019-03-24 19:50 | ER ---
Nurse's Notes [facility] Name: Andrey Wells Age: 58 yrs Sex: Male : 1960 Arrival Date: 03/24/2019 Time: 18:38 Bed 4 Private MD: Diagnosis: Sprain of ligaments of cervical spine Presentation: 03/24 18:39 Presenting complaint: EMS states: CABINET FELL ON HEAD, CERVICAL PAIN, -LOC. Transition bp of care: patient was not received from another setting of care. Mechanism of Injury: The problem was sustained at home, resulted from a direct blow, furniture. Onset of symptoms was March 24, 2019 at 18:00. Risk Assessment: Do you want to hurt yourself or someone else? Patient reports no desire to harm self or others. Initial Sepsis Screen: Does the patient meet any 2 criteria? HR > 90 bpm. Does the patient have a suspected source of infection? No. Patient's initial sepsis screen is negative. Care prior to arrival: None. 18:39 Method Of Arrival: EMS: [facility] bp 18:39 Acuity: KANDY 4 bp Triage Assessment: 18:41 General: Appears in no apparent distress. comfortable, Behavior is cooperative, bp appropriate for age, anxious. Pain: Complains of pain in back of head and back of neck. EENT: No deficits noted. Neuro: Level of Consciousness is awake, alert, obeys commands, Oriented to person, place, time, situation, Appropriate for age Reports headache. Cardiovascular: No deficits noted. Respiratory: No deficits noted. GI: No signs and/or symptoms were reported involving the gastrointestinal system. : No signs and/or symptoms were reported regarding the genitourinary system. Derm: No deficits noted. Musculoskeletal: No deficits noted. Historical: - Allergies: 18:41 No Known Allergies; bp - PMHx: 18:41 Back pain; Myocardial infarction; periphernal neuropathy; bp - Immunization history:: Adult Immunizations up to date. - Social history:: Smoking status: unknown. - Ebola Screening: : No symptoms or risks identified at this time. Screenin:43 Abuse screen: Denies threats or abuse. Denies injuries from another. Nutritional bp screening: No deficits noted. Tuberculosis screening: No symptoms or risk factors identified. Fall Risk None identified. Assessment: 18:42 General: SEE TRIAGE NOTE. bp 20:23 Reassessment: Patient appears in no apparent distress at this time. Patient is alert, ao oriented x 3, equal unlabored respirations, skin warm/dry/pink. Critical care time stopped, patient has stabilized. Instructions given to patient. Patient agree with POC and to follow up with PCP. No questions at this time. Vital Signs: 18:41 BP 170 / 91; Pulse 102; Resp 18; Temp 97.5(O); Pulse Ox 98% on R/A; dh3 [place] Coma Score: 18:39 Eye Response: spontaneous(4). Verbal Response: oriented(5). Motor Response: obeys bp commands(6). Total: 15. ED Course: 18:38 Patient arrived in ED. bp 18:39 Rhett Em PA is PHCP. jr8 18:39 Dony Palumbo MD is Attending Physician. jr8 18:40 Triage completed. bp 18:41 Arm band placed on. bp 18:43 Patient has correct armband on for positive identification. Bed in low position. Call bp light in reach. Side rails up X2. 18:44 Miguel Jones, ROCKY is Primary Nurse. bp 18:59 Inserted saline lock: 20 gauge in right forearm, using aseptic technique. dh3 20:22 No provider procedures requiring assistance completed. IV discontinued, intact, ao bleeding controlled, No redness/swelling at site. Pressure dressing applied. Administered Medications: 19:23 Drug: fentaNYL (PF) 75 mcg Route: IVP; Site: right wrist; jb4 19:23 Drug: Zofran 4 mg Route: IVP; Site: right wrist; jb4 Outcome: 19:49 Discharge ordered by . jr8 20:22 Discharged to home ambulatory. ao 20:22 Condition: stable 20:22 Discharge instructions given to patient, Instructed on discharge instructions, follow up and referral plans. the need for admit, Demonstrated understanding of instructions, follow-up care, medications, Prescriptions given X 3. 20:24 Patient left the ED. ao Signatures: Rhett Em PA PA jr8 Mando Barron RN RN ao Bryson, James, RN RN jb4 Heidi Diaz 3 Miguel Jones, ROCKY RN bp
--- NOTE | 2019-03-24 19:50 | EDPHYS ---
Physician Documentation [facility] Name: Andrey Wells Age: 58 yrs Sex: Male : 1960 Arrival Date: 03/24/2019 Time: 18:38 Bed 4 Private MD: ED Physician Dony Palumbo HPI: 03/24 18:44 This 58 yrs old Male presents to ER via EMS with complaints of Closed Head jr8 Injury-Adult. 18:44 The patient or guardian complains of decreased range of motion, pain. The symptoms are jr8 located at the C3, C4, C5 and C6. Onset: The symptoms/episode began/occurred acutely, today. Context: The problem was sustained at home, The neck injury/problem resulted from a direct blow. Associated signs and symptoms: The patient has no apparent associated signs or symptoms. The pain does not radiate. Modifying factors: The symptoms are alleviated by nothing. the symptoms are aggravated by movement. Severity of symptoms: At their worst the symptoms were moderate, in the emergency department the symptoms are unchanged. The patient has not experienced similar symptoms in the past. The patient has not recently seen a physician. Patient stated that he just sat down on the toilet to use the bathroom. Stated that the cabinets above him detached from wall and landed directly on his head. Has pain to neck since incident. Denies focal neurologic deficits of the extremities. Denies LOC . Historical: - Allergies: 18:41 No Known Allergies; bp - PMHx: 18:41 Back pain; Myocardial infarction; periphernal neuropathy; bp - Immunization history:: Adult Immunizations up to date. - Social history:: Smoking status: unknown. - Ebola Screening: : No symptoms or risks identified at this time. ROS: 18:44 Eyes: Negative for injury, pain, redness, and discharge, ENT: Negative for injury, jr8 pain, and discharge, Cardiovascular: Negative for chest pain, palpitations, and edema, Respiratory: Negative for shortness of breath, cough, wheezing, and pleuritic chest pain, Abdomen/GI: Negative for abdominal pain, nausea, vomiting, diarrhea, and constipation, Back: Negative for injury and pain, MS/Extremity: Negative for injury and deformity, Skin: Negative for injury, rash, and discoloration, Neuro: Negative for headache, weakness, numbness, tingling, and seizure. 18:44 Neck: Positive for pain with movement, pain at rest, stiffness, tenderness, bony tenderness. Exam: 18:44 Head/Face: Normocephalic, atraumatic. Eyes: Pupils equal round and reactive to light, jr8 extra-ocular motions intact. Lids and lashes normal. Conjunctiva and sclera are non-icteric and not injected. Cornea within normal limits. Periorbital areas with no swelling, redness, or edema. ENT: Nares patent. No nasal discharge, no septal abnormalities noted. Tympanic membranes are normal and external auditory canals are clear. Oropharynx with no redness, swelling, or masses, exudates, or evidence of obstruction, uvula midline. Mucous membranes moist. Chest/axilla: Normal chest wall appearance and motion. Nontender with no deformity. No lesions are appreciated. Cardiovascular: Regular rate and rhythm with a normal S1 and S2. No gallops, murmurs, or rubs. Normal PMI, no JVD. No pulse deficits. Respiratory: Lungs have equal breath sounds bilaterally, clear to auscultation and percussion. No rales, rhonchi or wheezes noted. No increased work of breathing, no retractions or nasal flaring. Abdomen/GI: Soft, non-tender, with normal bowel sounds. No distension or tympany. No guarding or rebound. No evidence of tenderness throughout. Back: No spinal tenderness. No costovertebral tenderness. Full range of motion. Skin: Warm, dry with normal turgor. Normal color with no rashes, no lesions, and no evidence of cellulitis. MS/ Extremity: Pulses equal, no cyanosis. Neurovascular intact. Full, normal range of motion. Neuro: Awake and alert, GCS 15, oriented to person, place, time, and situation. Cranial nerves II-XII grossly intact. Motor strength 5/5 in all extremities. Sensory grossly intact. Cerebellar exam normal. Normal gait. 18:44 Neck: External neck: is normal, C-spine: vertebral tenderness, that is moderate, appreciated at C3, C4, C5 and C6, Thyroid: appears normal, Trachea: is midline with no obvious abnormalities, ROM/movement: pain, that is moderate, with any movement, limited range of motion, that is moderate, in any direction, Lymph nodes: no appreciated lymphadenopathy. Vital Signs: 18:41 BP 170 / 91; Pulse 102; Resp 18; Temp 97.5(O); Pulse Ox 98% on R/A; dh3 [place] Coma Score: 18:39 Eye Response: spontaneous(4). Verbal Response: oriented(5). Motor Response: obeys bp commands(6). Total: 15. MDM: 18:39 Patient medically screened. jr8 19:15 Data reviewed: vital signs, nurses notes, radiologic studies, CT scan. Data jr8 interpreted: Pulse oximetry: on room air is 98 %. Interpretation: normal. Counseling: I had a detailed discussion with the patient and/or guardian regarding: the historical points, exam findings, and any diagnostic results supporting the discharge/admit diagnosis, radiology results, the need for outpatient follow up, a family practitioner, to return to the emergency department if symptoms worsen or persist or if there are any questions or concerns that arise at home. ED course: Discussed with patient that there are no acute intracranial or cervical findings on CT. No focal deficits at this time. Will treat with NSAIDS and muscle relaxant for now. If he were to have worsening of symptoms, would need MRI. 03/24 18:39 Order name: CT Head C Spine jr8 03/24 19:11 Order name: CT; Complete Time: 19:14 EDMS 03/24 18:39 Order name: IV; Complete Time: 19:01 jr8 Administered Medications: 19:23 Drug: fentaNYL (PF) 75 mcg Route: IVP; Site: right wrist; jb4 19:23 Drug: Zofran 4 mg Route: IVP; Site: right wrist; jb4 Disposition: 21:22 Co-signature as Attending Physician, Dony Palumbo MD I agree with the assessment and wa plan of care. Disposition: 03/24/19 19:49 Discharged to Home. Impression: Sprain of ligaments of cervical spine. - Condition is Stable. - Discharge Instructions: Cervical Sprain. - Prescriptions for meloxicam 15 mg Oral tablet - take 1 tablet by ORAL route once daily; 7 tablet. Zanaflex 4 mg Oral Tablet - take 1 tablet by ORAL route every 8 hours As needed; 20 tablet. Medrol (Augie) 4 mg Oral Tablets, Dose Pack - take 1 tablet by ORAL route as directed - follow package instructions; 1 packet. - Medication Reconciliation Form, Thank You Letter, Antibiotic Education, Prescription Opioid Use form. - Follow up: Private Physician; When: 5 - 6 days; Reason: Recheck today's complaints, Continuance of care, Re-evaluation by your physician. - Problem is new. - Symptoms have improved. Signatures: Dispatcher [employer] EDMS Rhett Em PA PA jr8 Mando Barron, RN RN Patric Arriola RN RN jb4 Dony Palumbo MD MD wa Peltier, Brian RN RN bp Corrections: (The following items were deleted from the chart) 20:24 19:49 03/24/2019 19:49 Discharged to Home. Impression: Sprain of ligaments of cervical ao spine. Condition is Stable. Forms are Medication Reconciliation Form, Thank You Letter, Antibiotic Education, Prescription Opioid Use. Follow up: Private Physician; When: 5 - 6 days; Reason: Recheck today's complaints, Continuance of care, Re-evaluation by your physician. Problem is new. Symptoms have improved. jr8
[2019-03-24 20:37] VITALS: BP 170/91; TEMP 97.5; O2SAT 98
== END 2019-03-24 20:24 | disposition home or self-care (01) ==
LOC: ER 18:35
DX: S13.4XXA Sprain of ligaments of cervical spine, initial encounter (principal); W22.8XXA Striking against or struck by other objects, initial encounter; Y93.89 Activity, other specified; Y92.002 Bathroom of unspecified non-institutional (private) residence as the place of occurrence of the external cause; I25.2 Old myocardial infarction
CPT/HCPCS: 70450; 72125; 96375; 96374; 99284; J3010; J2405

== ENCOUNTER 2019-11-18 17:07 | Emergency (ER) | payer OTHER ==
[2019-11-18] MEDS ORDERED: METHYLPREDNISOLONE 40 MG INJ ONE (18:09)
[2019-11-18 18:28] LABS: Absolute Lymphocytes (CBC) 3.1 K/uL (0.7-4.9); Hematocrit 43.3 % (39.6-49.0); Lymphocytes % 42.7 % (15.3-44.8); MPV 7.9 fL (7.6-11.3); RBC Red Blood Cell Count 4.99 M/uL (4.33-5.43)
[2019-11-18 18:29] LABS: Protime INR 0.92
--- NOTE | 2019-11-18 18:41 | RAD REPORT ---
EXAM DESCRIPTION: [facility] Single View11/18/2019 6:10 pm CLINICAL HISTORY: Shortness breath COMPARISON: 2017 FINDINGS: The lungs appear clear of acute infiltrate. The heart is normal size IMPRESSION: No acute abnormalities displayed
[2019-11-18 18:48] LABS: ALT/SGPT 45 U/L (12-78); AST/SGOT 33 U/L (15-37); Albumin 3.3 g/dL (3.4-5.0); Alkaline Phosphatase 79 U/L (45-117); BUN Blood Urea Nitrogen 11 mg/dL (7-18); Bicarbonate 25 mmol/L (21-32); Bilirubin Direct < 0.1 mg/dL (0-0.2); Bilirubin Total 0.3 mg/dL (0.2-1.0); Glucose Level 142 mg/dL (74-106); Magnesium 2.4 mg/dL (1.8-2.4); NT PRO-BNP 37 pg/mL (<125); Potassium 3.9 mmol/L (3.5-5.1); Protein, Total 7.8 g/dL (6.4-8.2); Sodium Level 137 mmol/L (136-145); Troponin (Emerg Dept Use Only) < 0.02 ng/mL (0.0-0.045)
--- NOTE | 2019-11-18 19:47 | ER ---
Nurse's Notes [facility] Name: Andrey Wells Age: 59 yrs Sex: Male : 1960 Arrival Date: 11/18/2019 Time: 17:07 Bed 18 Private MD: Diagnosis: Shortness of breath Presentation: 11/17 17:12 Chief complaint: Patient states: SOB since yesterday. Pt unable to sleep bc he has ks7 trouble breathing. Pt denies CP, Fever, N/V/D, denies generalized body aches. Denies loss of smell or taste. Coronavirus screen: Client denies travel out of the [place] in the last 14 days. shortness of breath, Client presents with at least one sign or symptom that may indicate coronavirus-19. Standard/surgical mask placed on the client. The client denies any previous COVID testing. Ebola Screen: Patient negative for fever greater than or equal to 101.5 degrees Fahrenheit, and additional compatible Ebola Virus Disease symptoms Patient denies exposure to infectious person. Patient denies travel to an Ebola-affected area in the 21 days before illness onset. Initial Sepsis Screen: Does the patient meet any 2 criteria? No. Patient's initial sepsis screen is negative. Does the patient have a suspected source of infection? No. Patient's initial sepsis screen is negative. Risk Assessment: Do you want to hurt yourself or someone else? Patient reports no desire to harm self or others. Onset of symptoms was November 17, 2019. 17:12 Method Of Arrival: Ambulatory ks7 17:12 Acuity: KANDY 3 ks7 Triage Assessment: 17:15 General: Appears in no apparent distress. uncomfortable, Behavior is calm, cooperative. ks7 Pain: Denies pain. Respiratory: Reports shortness of breath at rest on exertion Airway is patent Respiratory effort is even, Onset: The symptoms/episode began/occurred yesterday, the patient has moderate shortness of breath. Historical: - Allergies: 17:15 No Known Allergies; ks7 - Home Meds: 17:15 None [Active]; ks7 - PMHx: 17:15 Myocardial infarction; periphernal neuropathy; Back pain; ks7 - PSHx: 17:15 None; ks7 - Immunization history:: Adult Immunizations up to date. - Social history:: Smoking status: Patient reports the use of cigarette tobacco products, smokes one-half pack cigarettes per day. Screenin:59 Abuse screen: Denies threats or abuse. Denies injuries from another. Nutritional bp screening: No deficits noted. Tuberculosis screening: No symptoms or risk factors identified. Fall Risk None identified. Assessment: 17:15 General: SEE TRIAGE NOTE. bp 18:30 Reassessment: ALL CURRENT ORDERS COMPLETED. RESULTS PENDING. bp 19:29 General: Appears in no apparent distress. comfortable, Behavior is calm, cooperative. mg2 Pain: Denies pain. Neuro: Level of Consciousness is awake, alert, obeys commands, Oriented to person, place, time, situation. Cardiovascular:. Respiratory: Airway is patent Respiratory effort is even, unlabored, Respiratory pattern is regular, symmetrical. Respiratory: Reports shortness of breath at rest. GI: No signs and/or symptoms were reported involving the gastrointestinal system. : No signs and/or symptoms were reported regarding the genitourinary system. EENT: No signs and/or symptoms were reported regarding the EENT system. Derm: Skin is intact, is healthy with good turgor, Skin is pink, warm \T\ dry. normal. Musculoskeletal: Circulation, motion, and sensation intact. Capillary refill < 3 seconds. 19:57 Reassessment: daughter- Saida contacted and she is coming to pick him up. [id number]. mg2 Vital Signs: 17:12 BP 156 / 97; Pulse 85; Resp 18; Temp 97.9(O); Pulse Ox 98% on R/A; Weight 81.65 kg; ks7 Height 5 ft. 1 in. (154.94 cm); Pain 0/10; 18:30 BP 130 / 73; Pulse 82; Resp 16; Pulse Ox 96% ; bp 19:31 BP 141 / 96; Pulse 81; Resp 18; Pulse Ox 97% on R/A; mg2 17:12 Body Mass Index 34.01 (81.65 kg, 154.94 cm) ks7 ED Course: 17:07 Patient arrived in ED. as 17:15 Triage completed. ks7 17:15 Arm band placed on left wrist. ks7 17:18 Demetri Morales PA is PHCP. cp 17:18 Perez Caldera MD is Attending Physician. cp 17:18 Miguel Jones, RN is Primary Nurse. bp 17:30 Inserted saline lock: 20 gauge in right forearm, using aseptic technique. Blood bp collected. 18:10 XRAY Chest (1 view) In Process Unspecified. EDMS 18:59 Patient has correct armband on for positive identification. Bed in low position. Call bp light in reach. Side rails up X2. 19:30 No provider procedures requiring assistance completed. mg2 19:56 IV discontinued, intact, bleeding controlled, No redness/swelling at site. Pressure mg2 dressing applied. Administered Medications: 18:00 Drug: SOLU-Medrol 80 mg Route: IVP; Site: right forearm; bp 18:56 Follow up: Response: No adverse reaction bp Outcome: 19:46 Discharge ordered by MD. cp 19:57 Discharged to home ambulatory. mg2 19:57 Condition: stable 19:57 Discharge instructions given to patient, Instructed on discharge instructions, follow up and referral plans. medication usage, Demonstrated understanding of instructions, follow-up care, medications, Prescriptions given X 2. 19:58 Patient left the ED. mg2 Signatures: Dispatcher [employer] EDMS Aga Guardado as Demetri Morales, AMINATA PA Miguel Souza, RN RN bp Nicko Wang, RN RN mg2 Tatum Johnson RN RN ks7
--- NOTE | 2019-11-18 19:47 | EDPHYS ---
Physician Documentation [facility] Name: Andrey Wells Age: 59 yrs Sex: Male : 1960 Arrival Date: 11/18/2019 Time: 17:07 Bed 18 Private MD: ED Physician Perez Caldera HPI: 11/17 17:35 This 59 yrs old Male presents to ER via Ambulatory with complaints of cp Shortness Of Breath. 17:35 The patient has shortness of breath with light activity, when lying flat. Onset: The cp symptoms/episode began/occurred 2 day(s) ago. 17:35 Duration: The symptoms are continuous, and are steadily getting worse. The patient's cp shortness of breath is aggravated by light activity, supine position. 17:35 Associated signs and symptoms: Pertinent negatives: chest pain, productive cough, cp fever. Severity of symptoms: in the emergency department the symptoms are unchanged despite home interventions. Historical: - Allergies: 17:15 No Known Allergies; ks7 - Home Meds: 17:15 None [Active]; ks7 - PMHx: 17:15 Myocardial infarction; periphernal neuropathy; Back pain; ks7 - PSHx: 17:15 None; ks7 - Immunization history:: Adult Immunizations up to date. - Social history:: Smoking status: Patient reports the use of cigarette tobacco products, smokes one-half pack cigarettes per day. ROS: 17:40 Constitutional: Negative for body aches, chills, fever, poor PO intake. cp 17:40 Eyes: Negative for injury, pain, redness, and discharge. cp 17:40 Cardiovascular: Negative for chest pain, edema, palpitations. cp 17:40 Respiratory: Positive for shortness of breath, at rest. Negative for wheezing. 17:40 Abdomen/GI: Negative for abdominal pain, nausea, vomiting, and diarrhea. 17:40 Skin: Negative for rash. 17:40 Neuro: Negative for altered mental status, headache, syncope, weakness. 17:40 All other systems are negative. cp Exam: 17:45 Constitutional: The patient appears in no acute distress, alert, awake, cp non-diaphoretic, non-toxic, well developed, well nourished. 17:45 Head/Face: Normocephalic, atraumatic. cp 17:45 Eyes: Periorbital structures: appear normal, Conjunctiva: normal, no exudate, no injection, Sclera: no appreciated abnormality, Lids and lashes: appear normal, bilaterally. 17:45 ENT: External ear(s): are unremarkable, Nose: is normal, Mouth: Lips: moist, Oral mucosa: pink and intact, moist, Posterior pharynx: is normal, airway is patent, no erythema, no exudate. 17:45 Neck: ROM/movement: is normal, is supple, without pain, no range of motions limitations. 17:45 Chest/axilla: Inspection: normal, Palpation: is normal, no crepitus, no tenderness. 17:45 Cardiovascular: Rate: normal, Rhythm: regular, Edema: is not appreciated, JVD: is not appreciated. 17:45 Respiratory: the patient does not display signs of respiratory distress, Respirations: normal, no use of accessory muscles, no retractions, no splinting, no tachypnea, labored breathing, is not present, Breath sounds: decreased breath sounds, are not appreciated, stridor, is not appreciated, wheezing: is not appreciated. 17:45 Abdomen/GI: Inspection: abdomen appears normal, Bowel sounds: active, all quadrants, Palpation: abdomen is soft and non-tender, in all quadrants. 17:45 Back: pain, that is mild, ROM is painful, with all movement. 19:50 ECG was reviewed by the Attending Physician. Vital Signs: 17:12 BP 156 / 97; Pulse 85; Resp 18; Temp 97.9(O); Pulse Ox 98% on R/A; Weight 81.65 kg; ks7 Height 5 ft. 1 in. (154.94 cm); Pain 0/10; 18:30 BP 130 / 73; Pulse 82; Resp 16; Pulse Ox 96% ; bp 19:31 BP 141 / 96; Pulse 81; Resp 18; Pulse Ox 97% on R/A; mg2 17:12 Body Mass Index 34.01 (81.65 kg, 154.94 cm) ks7 MDM: 17:28 Patient medically screened. cp 19:45 Data reviewed: vital signs, nurses notes, lab test result(s), EKG, radiologic studies, cp plain films. 19:45 Differential diagnosis: asthma, Bronchitis CHF exacerbation, Chronic Obstructive cp Pulmonary Disease Myocardial Infarction pneumonia, Pneumothorax pulmonary edema, Pulmonary Embolism. Test interpretation: by ED physician or midlevel provider: ECG. Counseling: I had a detailed discussion with the patient and/or guardian regarding: the historical points, exam findings, and any diagnostic results supporting the discharge/admit diagnosis, lab results, radiology results, to return to the emergency department if symptoms worsen or persist or if there are any questions or concerns that arise at home. ED course: Patient reports symptoms improved. Will discharge to home for continued monitoring. 11/17 17:30 Order name: Basic Metabolic Panel; Complete Time: 18:58 cp 08/12 17:30 Order name: CBC with Diff; Complete Time: 18:58 cp 08/12 17:30 Order name: LFT's; Complete Time: 18:58 cp 08/12 17:30 Order name: Magnesium; Complete Time: 18:58 cp 08/12 17:30 Order name: NT PRO-BNP; Complete Time: 18:58 cp 08/12 17:30 Order name: PT-INR; Complete Time: 19:32 cp / 17:30 Order name: Troponin (emerg Dept Use Only); Complete Time: 18:58 cp 08/12 18:59 Interpretation: Reviewed. cp 11/17 17:30 Order name: XRAY Chest (1 view); Complete Time: 18:58 cp /12 17:30 Order name: EKG; Complete Time: 17:30 cp 08/12 17:30 Order name: Cardiac monitoring; Complete Time: 18:07 cp 08/12 17:30 Order name: COVID-19 cp / 19:00 Order name: LAB Add On cp 11/17 19:02 Order name: D-Dimer; Complete Time: 19:32 EDMS 11/17 17:30 Order name: EKG - Nurse/Tech; Complete Time: 18:57 cp 11/17 17:30 Order name: IV Saline Lock; Complete Time: 18:07 cp 12 17:30 Order name: Labs collected and sent; Complete Time: 18:07 cp /12 17:30 Order name: O2 Per Protocol; Complete Time: 17:39 cp /12 17:30 Order name: O2 Sat Monitoring; Complete Time: 17:39 cp 11/17 17:30 Order name: Document PUI#; Complete Time: 17:38 cp 11/17 17:30 Order name: Droplet/Contact Precautions; Complete Time: 17:38 cp 11/17 17:30 Order name: [facility] [id number]/ ; Complete Time: 17:38 cp EC:50 Rate is 77 beats/min. Rhythm is regular. [place] interval is normal. QRS interval is normal. cp QT interval is normal. T waves are Inverted in lead aVR. Interpreted by me. Reviewed by me. Administered Medications: 18:00 Drug: SOLU-Medrol 80 mg Route: IVP; Site: right forearm; bp 18:56 Follow up: Response: No adverse reaction bp Disposition: 11/18 07:26 Co-signature as Attending Physician, Perez Caldera MD I agree with the assessment and kdr plan of care. Disposition: 11/18/19 19:46 Discharged to Home. Impression: Shortness of breath. - Condition is Stable. - Discharge Instructions: Shortness of Breath, Aspirin and Your Heart. - Prescriptions for Prednisone 20 mg Oral Tablet - take 2 tablet by ORAL route once daily for 5 days; 10 tablet. Albuterol Sulfate 90 mcg/actuation - inhale 1-2 puff by INHALATION route every 4-6 hours; 1 Inhaler. - Medication Reconciliation Form, Thank You Letter, Antibiotic Education, Prescription Opioid Use form. - Follow up: Private Physician; When: 1 - 2 days; Reason: Recheck today's complaints. - Problem is new. - Symptoms have improved. Signatures: Dispatcher [employer] EDMS Perez Caldera MD MD kdr Demetri Morales PA PA cp Miguel Jones RN RN bp Nicko Wang RN RN mg2 Tatum Johnson RN RN ks7 Corrections: (The following items were deleted from the chart) 11/17 19:58 19:46 11/18/2019 19:46 Discharged to Home. Impression: Shortness of breath. Condition mg2 is Stable. Discharge Instructions: Shortness of Breath. Prescriptions for Prednisone 20 mg Oral Tablet - take 2 tablet by ORAL route once daily for 5 days; 10 tablet, Albuterol Sulfate 90 mcg/actuation - inhale 1-2 puff by INHALATION route every 4-6 hours; 1 Inhaler. and Forms are Medication Reconciliation Form, Thank You Letter, Antibiotic Education, Prescription Opioid Use. Follow up: Private Physician; When: 1 - 2 days; Reason: Recheck today's complaints. Problem is new. Symptoms have improved. cp
[2019-11-18 20:14] VITALS: TEMP 97.9
[2019-11-18 20:18] VITALS: BP 141/96; O2SAT 97
== END 2019-11-18 19:58 | disposition home or self-care (01) ==
LOC: ER 17:07
DX: R06.02 Shortness of breath (principal); I25.2 Old myocardial infarction; F17.210 Nicotine dependence, cigarettes, uncomplicated
CPT/HCPCS: 85025; 80048; 36415; 83735; 85610; 85379; 80076; 84484; 83880; 71045; J2920; 93005; 96374; 99284; U0002

== ENCOUNTER 2020-01-17 19:22 | Emergency (ER) | payer OTHER, SELFPAY ==
[2020-01-17] MEDS ORDERED: LIDOCAINE 1% MPF 5 ML VIAL ONE (19:56)
[2020-01-17] MEDS ORDERED: HYDROCODONE/APAP 5/325 MG TAB ONE (19:56)
--- NOTE | 2020-01-17 20:23 | ER ---
Nurse's Notes [facility] Name: Andrey Wells Age: 59 yrs Sex: Male : 1960 Arrival Date: 01/17/2020 Time: 19:25 Bed 8 Private MD: Diagnosis: Cutaneous abscess of right lower limb Presentation: 01/16 19:32 Chief complaint: Patient states: Abscess to RLE for 3 days slowly getting worse. No ll1 fever. No drainage from the site. Coronavirus screen: Client denies travel out of the [place] in the last 14 days. At this time, the client does not indicate any symptoms associated with coronavirus-19. The client reports previous COVID testing was negative. Ebola Screen: Patient denies travel to an Ebola-affected area in the 21 days before illness onset. Initial Sepsis Screen: Does the patient meet any 2 criteria? HR > 90 bpm. No. Patient's initial sepsis screen is negative. Does the patient have a suspected source of infection? Yes: Skin breakdown/wound. Risk Assessment: Do you want to hurt yourself or someone else? Patient reports no desire to harm self or others. Onset of symptoms was January 14, 2020. 19:32 Method Of Arrival: Ambulatory ll1 19:32 Acuity: KANDY 3 ll1 Historical: - Allergies: 19:34 No Known Allergies; ll1 - PMHx: 19:34 Myocardial infarction; periphernal neuropathy; Back pain; Hypertension; ll1 - PSHx: 19:34 back sx; ll1 - Immunization history:: Flu vaccine is not up to date. - Social history:: Smoking status: Patient reports the use of cigarette tobacco products, smokes one-half pack cigarettes per day. Screenin:30 Abuse screen: Denies threats or abuse. Nutritional screening: No deficits noted. jb4 Tuberculosis screening: No symptoms or risk factors identified. Fall Risk None identified. Assessment: 19:30 General: Appears in no apparent distress. uncomfortable, Behavior is calm, cooperative, jb4 appropriate for age. Pain: Complains of pain in lateral aspect of right calf Pain radiates to right foot Pain currently is 10 out of 10 on a pain scale. Quality of pain is described as pressure. Neuro: Level of Consciousness is awake, alert, obeys commands, Oriented to person, place, time, situation. Cardiovascular: Patient's skin is warm and dry. Respiratory: Airway is patent Respiratory effort is even, unlabored, Respiratory pattern is regular, symmetrical. GI: No signs and/or symptoms were reported involving the gastrointestinal system. : No signs and/or symptoms were reported regarding the genitourinary system. EENT: No signs and/or symptoms were reported regarding the EENT system. Derm: Skin is intact, Skin is pink, warm \T\ dry. Abscess located on lateral aspect of right calf is quarter sized, has no drainage, is hot to touch, is red, is raised. Musculoskeletal: Circulation, motion, and sensation intact. Range of motion: intact in all extremities. 20:20 Reassessment: Patient appears in no apparent distress at this time. Patient and/or jb4 family updated on plan of care and expected duration. Pain level reassessed. Patient is alert, oriented x 3, equal unlabored respirations, skin warm/dry/pink. Vital Signs: 19:32 BP 142 / 85; Pulse 113; Resp 18; Temp 97.6; Pulse Ox 96% ; Pain 10/10; ll1 20:00 BP 154 / 96; Pulse 103; Resp 16; Pulse Ox 96% on R/A; jb4 ED Course: 19:25 Patient arrived in ED. bp1 19:30 Krystal Eason FNP-C is PHCP. snw 19:30 Tod Bertrand MD is Attending Physician. snw 19:30 Patient has correct armband on for positive identification. Bed in low position. Call jb4 light in reach. Side rails up X 1. Pulse ox on. NIBP on. 19:34 Triage completed. ll1 19:34 Arm band placed on Patient placed in an exam room, on a stretcher. ll1 19:38 Patric Sherwood, ROCKY is Primary Nurse. jb4 20:10 Assist provider with I \T\ D: of an abscess on right Calf Set up I\T\D tray. Performed by steven 4 Tod Bertrand MD Culture sent to lab. Dressing with 4X4s, Patient tolerated well. 20:36 Patient did not have IV access during this emergency room visit. jb4 Administered Medications: 19:47 Drug: Romeo 5 mg-325 mg 1 tabs Route: PO; jb4 20:10 Follow up: Response: No adverse reaction; Pain is decreased; RASS: Alert and Calm (0) jb4 19:47 Drug: Hibiclens 4 % 1 application Route: Topical; Site: wound; jb4 20:10 Drug: Lidocaine (1 %) 5 mg {Note: Administered by ER provider..} Route: Infiltration; jb4 20:21 Follow up: Response: No adverse reaction jb4 20:30 Drug: Bactrim (160 mg-800 mg (DS) 1 tablet Route: PO; jb4 20:36 Follow up: Response: Medication administered at discharge. jb4 Outcome: 20:22 Discharge ordered by . curtis 20:36 Discharged to home ambulatory, with family. jb4 20:36 Condition: stable 20:36 Discharge instructions given to patient, family, Instructed on discharge instructions, follow up and referral plans. medication usage, Demonstrated understanding of instructions, follow-up care, medications, Prescriptions given X 2. 20:37 Patient left the ED. jb4 Signatures: Krystal Eason, POP SINGER-C POP SINGER-Csnw Patric Sherwood RN RN jb4 Angelito Torrez RN RN ll1 Kina Dill [facility] Corrections: (The following items were deleted from the chart) 19:35 19:32 Acuity: KANDY 4 ll1 ll1
--- NOTE | 2020-01-17 20:23 | EDPHYS ---
Physician Documentation [facility] Name: Andrey Wells Age: 59 yrs Sex: Male : 1960 Arrival Date: 01/17/2020 Time: 19:25 Bed 8 Private MD: ED Physician Tod Bertrand HPI: 01/16 20:29 This 59 yrs old Male presents to ER via Ambulatory with complaints of Insect snw Bite. 20:29 Onset: The symptoms/episode began/occurred suddenly. The patient has experienced a snw previous episode, but today's symptoms are not as bad as this previous episode. It is unknown whether or not the patient has recently seen a physician. Historical: - Allergies: 19:34 No Known Allergies; ll1 - PMHx: 19:34 Myocardial infarction; periphernal neuropathy; Back pain; Hypertension; ll1 - PSHx: 19:34 back sx; ll1 - Immunization history:: Flu vaccine is not up to date. - Social history:: Smoking status: Patient reports the use of cigarette tobacco products, smokes one-half pack cigarettes per day. ROS: 20:28 Constitutional: Negative for fever, chills, and weight loss, Eyes: Negative for injury, snw pain, redness, and discharge, ENT: Negative for injury, pain, and discharge, Neck: Negative for injury, pain, and swelling, Cardiovascular: Negative for chest pain, palpitations, and edema, Respiratory: Negative for shortness of breath, cough, wheezing, and pleuritic chest pain, Abdomen/GI: Negative for abdominal pain, nausea, vomiting, diarrhea, and constipation, Back: Negative for injury and pain, : Negative for injury, bleeding, discharge, and swelling, MS/Extremity: Negative for injury and deformity, Skin: Negative for injury, rash, and discoloration, +abscess to right lower leg Neuro: Negative for headache, weakness, numbness, tingling, and seizure, Psych: Negative for depression, anxiety, suicide ideation, homicidal ideation, and hallucinations. Exam: 20:26 Constitutional: This is a well developed, well nourished patient who is awake, alert, snw and in no acute distress. Head/Face: Normocephalic, atraumatic. Eyes: Pupils equal round and reactive to light, extra-ocular motions intact. Lids and lashes normal. Conjunctiva and sclera are non-icteric and not injected. Cornea within normal limits. Periorbital areas with no swelling, redness, or edema. ENT: Nares patent. No nasal discharge, no septal abnormalities noted. Tympanic membranes are normal and external auditory canals are clear. Oropharynx with no redness, swelling, or masses, exudates, or evidence of obstruction, uvula midline. Mucous membranes moist. Neck: Trachea midline, no thyromegaly or masses palpated, and no cervical lymphadenopathy. Supple, full range of motion without nuchal rigidity, or vertebral point tenderness. No Meningismus. Chest/axilla: Normal chest wall appearance and motion. Nontender with no deformity. No lesions are appreciated. Cardiovascular: Regular rate and rhythm with a normal S1 and S2. No gallops, murmurs, or rubs. Normal PMI, no JVD. No pulse deficits. Respiratory: Lungs have equal breath sounds bilaterally, clear to auscultation and percussion. No rales, rhonchi or wheezes noted. No increased work of breathing, no retractions or nasal flaring. Abdomen/GI: Soft, non-tender, with normal bowel sounds. No distension or tympany. No guarding or rebound. No evidence of tenderness throughout. Back: No spinal tenderness. No costovertebral tenderness. Full range of motion. MS/ Extremity: Pulses equal, no cyanosis. Neurovascular intact. Full, normal range of motion. Neuro: Awake and alert, GCS 15, oriented to person, place, time, and situation. Cranial nerves II-XII grossly intact. Motor strength 5/5 in all extremities. Sensory grossly intact. Cerebellar exam normal. Normal gait. Psych: Awake, alert, with orientation to person, place and time. Behavior, mood, and affect are within normal limits. 20:26 Skin: Appearance: normal except for affected area, abscess, that is small, approximately 2 cm(s), of the lateral aspect of right calf, with surrounding cellulitis, that is mild. Vital Signs: 19:32 BP 142 / 85; Pulse 113; Resp 18; Temp 97.6; Pulse Ox 96% ; Pain 10/10; ll1 20:00 BP 154 / 96; Pulse 103; Resp 16; Pulse Ox 96% on R/A; jb4 MDM: 19:34 Patient medically screened. snw 20:26 Data reviewed: vital signs, nurses notes. Data interpreted: Pulse oximetry: on room air snw is 96 %. Interpretation: normal. Counseling: I had a detailed discussion with the patient and/or guardian regarding: the historical points, exam findings, and any diagnostic results supporting the discharge/admit diagnosis, the presence of at least one elevated blood pressure reading (>120/80) during this emergency department visit, the need for outpatient follow up, to return to the emergency department if symptoms worsen or persist or if there are any questions or concerns that arise at home. Response to treatment: the patient's symptoms have markedly improved after treatment, and as a result, I will discharge patient. Special discussion: I have referred the patient to see his PCP for further evaluation of high blood pressure. Based on the history and exam findings, there is no indication for further emergent testing or inpatient evaluation. I discussed with the patient/guardian the need to see the primary care provider for further evaluation of the symptoms. 01/16 19:38 Order name: Suture Tray Setup; Complete Time: 19:40 snw 01/16 20:21 Order name: Wound dressing; Complete Time: 20:36 snw Administered Medications: 19:47 Drug: [place] 5 mg-325 mg 1 tabs Route: PO; jb4 20:10 Follow up: Response: No adverse reaction; Pain is decreased; RASS: Alert and Calm (0) jb4 19:47 Drug: Hibiclens 4 % 1 application Route: Topical; Site: wound; jb4 20:10 Drug: Lidocaine (1 %) 5 mg {Note: Administered by ER provider..} Route: Infiltration; jb4 20:21 Follow up: Response: No adverse reaction jb4 20:30 Drug: Bactrim (160 mg-800 mg (DS) 1 tablet Route: PO; jb4 20:36 Follow up: Response: Medication administered at discharge. jb4 Disposition: 20:44 Co-signature as Attending Physician, Tod Bertrand MD I agree with the assessment and 4 plan of care. Disposition: 01/17/20 20:22 Discharged to Home. Impression: Cutaneous abscess of right lower limb. - Condition is Stable. - Discharge Instructions: Skin Abscess, Incision and Drainage, Rehydration, Adult. - Prescriptions for Mobic 7.5 mg Oral Tablet - take 1 tablet by ORAL route once daily take with food; 20 tablet. Bactrim DS 800- 160 mg Oral Tablet - take 1 tablet by ORAL route every 12 hours for 10 days; 20 tablet. - Medication Reconciliation Form, Thank You Letter, Antibiotic Education, Prescription Opioid Use form. - Follow up: Emergency Department; When: As needed; Reason: Worsening of condition. Follow up: Private Physician; When: 2 - 3 days; Reason: Recheck today's complaints, Continuance of care, Re-evaluation by your physician. Signatures: Krystal Eason FNP-C [employer]ICE PRESIDENT [employer] Patric Sherwood, RN RN jb4 Tod Bertrand MD MD tw4 Angelito Torrez RN RN ll1 Corrections: (The following items were deleted from the chart) 20:37 20:22 01/17/2020 20:22 Discharged to Home. Impression: Cutaneous abscess of right lower jb4 limb. Condition is Stable. Forms are Medication Reconciliation Form, Thank You Letter, Antibiotic Education, Prescription Opioid Use. Follow up: Emergency Department; When: As needed; Reason: Worsening of condition. Follow up: Private Physician; When: 2 - 3 days; Reason: Recheck today's complaints, Continuance of care, Re-evaluation by your physician. snw
[2020-01-17] MEDS ORDERED: SMZ./TMP. 800/160 MG TABLET ONE (20:39)
[2020-01-17 20:45] VITALS: TEMP 97.6; O2SAT 96
[2020-01-17 20:46] VITALS: BP 154/96
== END 2020-01-17 20:37 | disposition home or self-care (01) ==
LOC: ER 19:22
DX: L03.115 Cellulitis of right lower limb (principal); F17.210 Nicotine dependence, cigarettes, uncomplicated; I10 Essential (primary) hypertension
CPT/HCPCS: 99284

== ENCOUNTER 2020-08-24 22:30 | Emergency (ER) | payer OTHER, SELFPAY ==
[2020-08-24 23:37] LABS: Urine Blood Negative (Negative); Urine Glucose 3+ (Negative); Urine Protein Negative (Negative); Urine Specific Gravity >=1.030 (1.005-1.030); Urine pH 6.5 (5.0-7.0)
[2020-08-25 00:02] LABS: Absolute Lymphocytes (CBC) 3.3 K/uL (0.7-4.9); Basophils % 1.6 % (0-1.3); Hematocrit 46.4 % (39.6-49.0); Lymphocytes % 28.7 % (15.3-44.8); MPV 7.7 fL (7.6-11.3); RBC Red Blood Cell Count 5.29 M/uL (4.33-5.43)
[2020-08-25] MEDS ORDERED: ONDANSETRON 4 MG/2 ML VIAL ONE (00:07)
[2020-08-25] MEDS ORDERED: MORPHINE 4 MG/ML SYR ONE (00:07)
[2020-08-25 00:13] LABS: ALT/SGPT 45 U/L (12-78); AST/SGOT 31 U/L (15-37); Albumin 3.4 g/dL (3.4-5.0); Alkaline Phosphatase 115 U/L (45-117); BUN Blood Urea Nitrogen 11 mg/dL (7-18); Bicarbonate 28 mmol/L (21-32); Bilirubin Direct < 0.1 mg/dL (0-0.2); Bilirubin Total 0.2 mg/dL (0.2-1.0); Glucose Level 197 mg/dL (74-106); Lipase 231 U/L (73-393); Potassium 4.1 mmol/L (3.5-5.1); Sodium Level 137 mmol/L (136-145)
--- NOTE | 2020-08-25 00:51 | ER ---
Nurse's Notes [facility] Name: Andrey Wells Age: 60 yrs Sex: Male : 1960 Arrival Date: 08/24/2020 Time: 22:39 Bed 17 Private MD: Diagnosis: Low back pain;Dysuria Presentation: 08/24 23:14 Chief complaint: Patient states: Sharp pain in right lower back that started yesterday. iw Urine has a strong odor. Coronavirus screen: Client denies travel out of the [place] in the last 14 days. Ebola Screen: Patient negative for fever greater than or equal to 101.5 degrees Fahrenheit, and additional compatible Ebola Virus Disease symptoms Patient denies exposure to infectious person. Patient denies travel to an Ebola-affected area in the 21 days before illness onset. Initial Sepsis Screen: Does the patient meet any 2 criteria? No. Patient's initial sepsis screen is negative. Does the patient have a suspected source of infection? No. Patient's initial sepsis screen is negative. Risk Assessment: Do you want to hurt yourself or someone else? Patient reports no desire to harm self or others. Onset of symptoms was August 22, 2020. 23:14 Method Of Arrival: Ambulatory iw 23:14 Acuity: KANDY 3 iw Triage Assessment: 08/25 00:24 General: Appears in no apparent distress. Behavior is calm, cooperative. Pain: ak2 Complains of pain in back. Musculoskeletal: Historical: - PMHx: 08/24 23:17 Myocardial infarction; periphernal neuropathy; Back pain; iw - PSHx: 23:17 back surgery; iw - Immunization history:: Adult Immunizations up to date. - Social history:: Smoking status: Patient reports the use of cigarette tobacco products, denies chronic smoking, but will smoke occasionally, Patient/guardian denies using alcohol, street drugs. Screenin/20 00:24 Abuse screen: Denies threats or abuse. Denies injuries from another. Nutritional ak2 screening: No deficits noted. Tuberculosis screening: No symptoms or risk factors identified. Fall Risk None identified. Vital Signs: 08/24 23:12 BP 162 / 83; Pulse 97; Resp 18; Temp 98.2; Pulse Ox 99% on R/A; Weight 81.65 kg; Height iw 5 ft. 1 in. (154.94 cm); Pain 9/10; 08/25 00:24 BP 154 / 63; Pulse 84; Resp 18; Pulse Ox 100% on R/A; ak2 08/24 23:12 Body Mass Index 34.01 (81.65 kg, 154.94 cm) ED Course: 08/24 22:39 Patient arrived in ED. am4 23:16 Triage completed. iw 23:17 Arm band placed on right wrist. iw 23:32 Abbe Peñaloza PA is PHCP. meaghan 23:32 Demetri Gao MD is Attending Physician. meaghan 23:34 Rian Lowry is Primary Nurse. ak2 08/25 00:24 No apparent distress. ak2 00:24 Patient has correct armband on for positive identification. ak2 00:24 No provider procedures requiring assistance completed. Inserted saline lock: 20 gauge. ak2 02:08 CT Stone Protocol In Process Unspecified. EDMS Administered Medications: 08/24 23:48 Drug: morphine 4 mg Route: IVP; Site: right antecubital; ak2 23:48 Drug: Zofran (Ondansetron) 4 mg Route: IVP; Site: right antecubital; ak2 08/25 00:49 Drug: Valium (diazepam) 5 mg Route: IVP; Site: right antecubital; ak2 Outcome: 00:50 Discharge ordered by . [facility] 01:01 Patient left the ED. ak2 Signatures: Dispatcher [employer] EDMS Abbe Peñaloza PA PA jmm Williams, Irene, ROCKY RN Tiera Davis 4 Rian Lowry ak2
--- NOTE | 2020-08-25 00:51 | EDPHYS ---
Physician Documentation [facility] Name: Andrey Wells Age: 60 yrs Sex: Male : 1960 Arrival Date: 08/24/2020 Time: 22:39 Bed 17 Private MD: KATELYNN Physician Demetri Gao HPI: 08/25 00:11 This 60 yrs old Male presents to ER via Ambulatory with complaints of Back jmm Pain. 00:11 The patient presents with pain that is acute. Onset: The symptoms/episode jmm began/occurred gradually, 2 day(s) ago. The pain does not radiate. Associated signs and symptoms: Pertinent positives: dysuria, Pertinent negatives: fever, hematuria, incontinence, numbness, tingling, urinary retention, vomiting, weakness. Modifying factors: The patient symptoms are alleviated by remaining still, the patient symptoms are aggravated by any movement. The patient has not experienced similar symptoms in the past. Historical: - PMHx: 08/24 23:17 Myocardial infarction; periphernal neuropathy; Back pain; iw - PSHx: 23:17 back surgery; iw - Immunization history:: Adult Immunizations up to date. - Social history:: Smoking status: Patient reports the use of cigarette tobacco products, denies chronic smoking, but will smoke occasionally, Patient/guardian denies using alcohol, street drugs. ROS: 08/25 00:11 Constitutional: Negative for fever, chills, and weight loss, Cardiovascular: Negative jmm for chest pain, palpitations, and edema, Respiratory: Negative for shortness of breath, cough, wheezing, and pleuritic chest pain, Abdomen/GI: Negative for abdominal pain, nausea, vomiting, diarrhea, and constipation. Back: Positive for pain with movement. All other systems are negative. Exam: 00:11 Head/Face: atraumatic. Eyes: EOMI, no conjunctival erythema appreciated ENT: Moist jmm Mucus Membranes Neck: Trachea midline, Supple Chest/axilla: Normal chest wall appearance and motion. Cardiovascular: Regular rate and rhythm. No edema appreciated Respiratory: Normal respirations, no respiratory distress appreciated Abdomen/GI: Non distended, soft 00:11 Constitutional: The patient appears alert, awake, uncomfortable. 00:11 Back: muscle spasm noted to the right lower lumbar region. 00:11 Musculoskeletal/extremity: ROM: intact in all extremities. 00:11 Skin: Appearance: Color: normal in color. 00:11 Neuro: Orientation: is normal, Mentation: is normal, Memory: is normal. 00:11 Psych: Behavior/mood is pleasant, cooperative. Vital Signs: 08/24 23:12 BP 162 / 83; Pulse 97; Resp 18; Temp 98.2; Pulse Ox 99% on R/A; Weight 81.65 kg; Height iw 5 ft. 1 in. (154.94 cm); Pain 9/10; 08/25 00:24 BP 154 / 63; Pulse 84; Resp 18; Pulse Ox 100% on R/A; ak2 08/24 23:12 Body Mass Index 34.01 (81.65 kg, 154.94 cm) iw MDM: 08/24 23:33 Patient medically screened. [facility] 08/25 00:43 Data reviewed: vital signs, nurses notes. Counseling: I had a detailed discussion with ansley the patient and/or guardian regarding: the historical points, exam findings, and any diagnostic results supporting the discharge/admit diagnosis, lab results, radiology results, the need for outpatient follow up. ED course: Pain decreased in the ED. Patient is advised to follow up with pcp and otherwise given strict return precautions. Patient understood and agrees with the plan of care. . 08/24 23:37 Order name: Urine Dipstick-Ancillary; Complete Time: 23:39 [facility] 08/24 23:40 Order name: Basic Metabolic Panel [facility] 08/24 23:40 Order name: CBC with Diff [facility] 08/24 23:40 Order name: Hepatic Function [facility] 08/24 23:40 Order name: Lipase [facility] 08/25 00:05 Order name: CBC with Automated Diff; Complete Time: 00:08 [facility] 08/24 23:40 Order name: CT Stone Protocol [facility] 08/24 23:40 Order name: Saline Lock [facility] 08/25 00:13 Order name: Basic Metabolic Panel; Complete Time: 00:32 [facility] 08/25 00:13 Order name: Liver (Hepatic) Function; Complete Time: 00:32 [facility] 08/25 00:13 Order name: Lipase; Complete Time: 00:32 [facility] 08/24 23:40 Order name: Labs collected and sent [facility] Administered Medications: 08/24 23:48 Drug: morphine 4 mg Route: IVP; Site: right antecubital; ak2 23:48 Drug: Zofran (Ondansetron) 4 mg Route: IVP; Site: right antecubital; ak2 08/25 00:49 Drug: Valium (diazepam) 5 mg Route: IVP; Site: right antecubital; ak2 Disposition: 12:24 Co-signature as Attending Physician, Demetri Gao MD I agree with the assessment and lennox plan of care. Disposition: 08/25/20 00:50 Discharged to Home. Impression: Low back pain, Dysuria. - Condition is Stable. - Discharge Instructions: Back Pain, Adult, Dysuria. - Prescriptions for Cephalexin 500 mg Oral Capsule - take 1 capsule by ORAL route every 8 hours for 10 days; 30 capsule. Ultracet 37.5- 325 mg Oral Tablet - take 1 tablet by ORAL route every 6 hours - for up to 5 days; do not exceed 8 tablets per day.; 12 tablet. Zanaflex 4 mg Oral Tablet - take 1 tablet by ORAL route every 8 hours As needed; 20 tablet. - Medication Reconciliation Form, Thank You Letter, Antibiotic Education, Prescription Opioid Use form. - Follow up: Private Physician; When: 2 - 3 days; Reason: Recheck today's complaints, Continuance of care, Re-evaluation by your physician. Signatures: Dispatcher [employer] Demetri Kitchen MD MD cha Mickail, Joel, PA PA jmm Williams, Irene, RN RN Rian Navarro Corrections: (The following items were deleted from the chart) 01:01 00:50 08/25/2020 00:50 Discharged to Home. Impression: Low back pain; Dysuria. ak2 Condition is Stable. Forms are Medication Reconciliation Form, Thank You Letter, Antibiotic Education, Prescription Opioid Use. Follow up: Private Physician; When: 2 - 3 days; Reason: Recheck today's complaints, Continuance of care, Re-evaluation by your physician. ansley
[2020-08-25 01:08] VITALS: TEMP 98.2
[2020-08-25] MEDS ORDERED: DIAZEPAM 10 MG/2 ML INJ SYRINGE ONE (01:08)
[2020-08-25 01:09] VITALS: BP 154/63; O2SAT 100
--- NOTE | 2020-08-25 10:39 | RAD REPORT ---
EXAM DESCRIPTION: CT - Stone Protocol - 08/25/2020 6:49 am CLINICAL HISTORY: Right flank pain. COMPARISON: None. TECHNIQUE: Serial axial CT images were obtained from above the diaphragm through the pubic symphysis without administration of intravenous or oral contrast. All CT scans are performed using dose optimization techniques as appropriate, including automated exp osure control and/or standardized protocols, where dose is adjusted for indication for exam and body habitus. FINDINGS: Thoracic: No significant abnormality. Hepatobiliary: No obvious concerning hepatic lesion identified in the absence of intravenous contrast . Grossly unremarkable appearance of the contracted gallbladder. No biliary ductal dilatation. Pancreas: Unremarkable. Spleen: Unremarkable. Gastrointestinal: No evidence of bowel obstruction or perienteric inflammation. The appendix is akbar l. Mild left colonic diverticulosis. Small amount of fecal material throughout the colon. Adrenals: No abnormality identified in either adrenal gland. Renal: There is a small vascular calcification in the interpolar right kidney, as well as a punctate inferior pole calculus. No ureteral calculi are identified. No left-sided urolithiasis. No hydronephr osis bilaterally. Mild bilateral perinephric fat stranding. No obvious parenchymal abnormality in eit her kidney in the absence of intravenous contrast. Bladder/Reproductive: Mild mural fat deposition at the bladder dome, likely sequela of chronic inflam mation. Minimal diffuse bladder wall thickening in the setting of underdistention. Minimally prominen t prostate gland. Vascular/Lymphatics: No lymphadenopathy identified by CT size criteria. Abdominal aorta is normal in caliber. Mild calcific atherosclerosis. Musculoskeletal: No concerning osseous lesion identified. 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 Fluid / peritoneum: No significant free fluid. No free intraperitoneal air identified. IMPRESSION: 1. Punctate nonobstructive right renal calculus. No ureteral calculi or hydronephrosis bilaterally. 2. Minimal diffuse bladder wall thickening in the setting of underdistention. Correlate for cystiti s versus mild chronic bladder outlet obstruction. 3. Mild left colonic diverticulosis. Electronically signed by: Akosua Miguel MD 08/25/2020 12:14 AM CDT Due to temporary technical issues with the PACS/Fluency reporting system, reports are being signed by the in house radiologist without review as a courtesy to ensure prompt reporting. The interpreting r adiologist is fully responsible for the content of the report.
== END 2020-08-25 01:01 | disposition home or self-care (01) ==
LOC: ER 22:30
DX: R30.0 Dysuria (principal); F17.210 Nicotine dependence, cigarettes, uncomplicated; I25.2 Old myocardial infarction
CPT/HCPCS: 85025; 80048; 36415; 80076; 81003; 83690; 76377; 74176; 96375; 96374; 99283; J3360

== ENCOUNTER 2021-08-02 21:54 | Inpatient (IN) | payer OTHER ==
[2021-08-02 22:46] LABS: Absolute Lymphocytes (CBC) 3.3 K/uL (0.7-4.9); Hematocrit 41.4 % (39.6-49.0); Lymphocytes % 37.8 % (15.3-44.8); MPV 7.7 fL (7.6-11.3); RBC Red Blood Cell Count 4.94 M/uL (4.33-5.43)
[2021-08-02 23:06] LABS: ALT/SGPT 41 U/L (12-78); AST/SGOT 21 U/L (15-37); Albumin 3.1 g/dL (3.4-5.0); Alkaline Phosphatase 106 U/L (45-117); BUN Blood Urea Nitrogen 7 mg/dL (7-18); Bicarbonate 25 mmol/L (21-32); Bilirubin Total 0.2 mg/dL (0.2-1.0); Glucose Level 265 mg/dL (74-106); Magnesium 2.1 mg/dL (1.8-2.4); NT PRO-BNP 90 pg/mL (<125); Potassium 3.8 mmol/L (3.5-5.1); Protein, Total 7.3 g/dL (6.4-8.2); Sodium Level 134 mmol/L (136-145); Troponin High Sensitivity 7.6 pg/mL (<58.9)
[2021-08-02 23:11] LABS: Bilirubin Direct < 0.1 mg/dL (0-0.2)
--- NOTE | 2021-08-02 23:18 | ER ---
Nurse's Notes [facility] Name: Andrey Wells Age: 61 yrs Sex: Male : 1960 Arrival Date: 08/02/2021 Time: 22:34 Bed 12 Private MD: Diagnosis: Chest pain, unspecified Presentation: 08/02 21:50 Method Of Arrival: EMS ag7 21:50 Acuity: KANDY 2 ag7 21:50 Chief complaint: Patient states: Patient arrived by EMS from home. Patient verbalize ag7 "chest pain intermittent 09/15". Coronavirus screen: Client denies travel out of the [place] in the last 14 days. At this time, the client does not indicate any symptoms associated with coronavirus-19. Ebola Screen: Patient negative for fever greater than or equal to 101.5 degrees Fahrenheit, and additional compatible Ebola Virus Disease symptoms Patient denies exposure to infectious person. Patient denies travel to an Ebola-affected area in the 21 days before illness onset. Initial Sepsis Screen: Does the patient meet any 2 criteria? No. Patient's initial sepsis screen is negative. Does the patient have a suspected source of infection? No. Patient's initial sepsis screen is negative. Risk Assessment: Do you want to hurt yourself or someone else? Patient reports no desire to harm self or others. Onset of symptoms was August 02, 2021. 21:50 Care prior to arrival: Medication(s) given: Nitroglycerin, x 2, IV initiated. 20 GA, in ag7 the left forearm, Oxygen administered. via nasal cannula. 21:50 Care prior to arrival: Medication(s) given: Normal saline infusion, 500 mL. ag7 Historical: - Allergies: 21:50 No Known Allergies; ag7 - Home Meds: 21:50 None [Active]; ag7 - PMHx: 21:50 NEUROPATHY; BACK; Myocardial infarction; ag7 - PSHx: 21:50 BACK SURGERY; ag7 - Immunization history:: Adult Immunizations up to date, Client reports receiving the 2nd dose of the Covid vaccine, Flu vaccine is up to date. - Social history:: Smoking status: Patient reports the use of cigarette tobacco products, denies chronic smoking, but will smoke occasionally, Patient uses beer occasionally. Screenin:19 Abuse screen: Denies threats or abuse. Nutritional screening: No deficits noted. ag7 Tuberculosis screening: No symptoms or risk factors identified. Fall Risk No fall in past 12 months (0 pts). No secondary diagnosis (0 pts). IV access (20 points). Ambulatory Aid- None/Bed Rest/Nurse Assist (0 pts). Gait- Normal/Bed Rest/Wheelchair (0 pts) Mental Status- Oriented to own ability (0 pts). Total Pandey Fall Scale indicates No Risk (0-24 pts). Assessment: 21:50 General: Appears in no apparent distress. obese, Behavior is calm, cooperative, ag7 appropriate for age. Pain: Complains of pain in chest Pain does not radiate. Pain currently is 6 out of 10 on a pain scale. Quality of pain is described as pressure, Pain began suddenly, Is intermittent, Alleviated by nothing. Neuro: Level of Consciousness is awake, alert, obeys commands, Oriented to Appropriate for age. Cardiovascular: Heart tones S1 S2 present Capillary refill < 3 seconds in bilateral fingers Clubbing of nail beds is absent Patient's skin is warm and dry. Rhythm is sinus rhythm. Respiratory: Airway is patent Trachea midline Respiratory effort is even, unlabored, Respiratory pattern is regular, symmetrical, Breath sounds are clear bilaterally. 22:50 Reassessment: Patient and/or family updated on plan of care and expected duration. Pain ag7 level reassessed. Patient is alert, oriented x 3, equal unlabored respirations, skin warm/dry/pink. Patient states feeling better. Patient states symptoms have improved. 23:50 Reassessment: Patient and/or family updated on plan of care and expected duration. Pain ag7 level reassessed. Patient is alert, oriented x 3, equal unlabored respirations, skin warm/dry/pink. chest pain 6/10 Patient states feeling better. Patient states symptoms have improved. 08/03 01:00 Reassessment: Patient and/or family updated on plan of care and expected duration. Pain ag7 level reassessed. Patient is alert, oriented x 3, equal unlabored respirations, skin warm/dry/pink. pain 3/10 chest. 02:00 Reassessment: No changes from previously documented assessment. ag7 02:24 Reassessment: This nurse attempt to call report, no success, callback pending Rm 407. ag7 04:21 Reassessment: Report called to Raymond HIDALGO, patient room 407. ag7 Vital Signs: 08/02 21:50 BP 152 / 73; Pulse 82; Resp 16; Temp 97.9(O); Pulse Ox 96% on R/A; Weight 90.72 kg; ag7 Height 5 ft. 1 in. (154.94 cm); Pain 6/10; 23:45 BP 131 / 73; Pulse 86; Resp 18; Pulse Ox 100% ; Pain 6/10; ag7 08/03 00:00 BP 140 / 78; Pulse 85; Resp 18 S; Pulse Ox 96% on R/A; Pain 6/10; ag7 00:15 BP 145 / 73; Pulse 85; Resp 19 S; Pulse Ox 96% on R/A; Pain 6/10; ag7 01:00 BP 135 / 87; Pulse 92; Resp 19 S; Pulse Ox 98% on R/A; Pain 2/10; ag7 08/02 21:50 Body Mass Index 37.79 (90.72 kg, 154.94 cm) ag7 ED Course: 08/02 21:50 EKG completed in triage. Results shown to MD. ag7 22:34 Patient arrived in ED. tw5 22:34 Demetri Morales PA is PHCP. cp 22:34 Demetri Gao MD is Attending Physician. cp 22:56 Maura Granados RN is Primary Nurse. ag7 22:57 Inserted saline lock: 20 gauge in right antecubital area, using aseptic technique. ag7 Blood collected. 23:02 XRAY Chest (1 view) In Process Unspecified. EDMS 23:06 Triage completed. ag7 23:09 Report received from EMS 2150. ag7 23:17 Ke Ordonez MD is Hospitalizing Provider. [facility] 23:17 Maintain EMS IV. Dressing intact. Good blood return noted. Site clean \\T\\ dry. Gauge \\T\\ ag 7 site: 20 GAUGE LEFT FOREARM. 23:22 Patient maintains SpO2 saturation greater than 95% on room air. ag7 23:22 Arm band placed on right wrist. ag7 23:22 patient monitor on. Pulse ox on. NIBP on. ag7 23:22 Patient has correct armband on for positive identification. Bed in low position. Call ag7 light in reach. Side rails up X 1. Adult w/ patient. 08/03 04:56 No provider procedures requiring assistance completed. Patient admitted, IV remains in 7 place. Administered Medications: No medications were administered Outcome: 08/02 23:17 Decision to Hospitalize by Provider. [facility] 08/03 04:57 Admitted to Med/surg accompanied by tech, via wheelchair, room 407, Report called to mark Andrade RN Condition: stable 04:57 Patient left the ED. [facility] Signatures: Dispatcher [employer] EDDemetri Montez MD MD cha Page, Corey, PA PA cp Wood, Tiffany tw5 Maura Granados RN RN [facility] Corrections: (The following items were deleted from the chart) 08/02 23:12 21:23 Chief complaint: Patient states: Patient arrived by EMS from home. Patient ag7 verbalize "chest pain intermittent 6/10". [facility] 23:12 21:23 Coronavirus screen: Client denies travel out of the [place] in the last 14 days. At [facility] this time, the client does not indicate any symptoms associated with coronavirus-19. [facility] 23:12 21:23 Ebola Screen: Patient negative for fever greater than or equal to 101.5 degrees 7 Fahrenheit, and additional compatible Ebola Virus Disease symptoms Patient denies exposure to infectious person. Patient denies travel to an Ebola-affected area in the 21 days before illness onset. [facility] 23:12 21:23 Initial Sepsis Screen: Does the patient meet any 2 criteria? No. Patient's [facility] initial sepsis screen is negative. Does the patient have a suspected source of infection? No. Patient's initial sepsis screen is negative. [facility] 23:12 21:23 Risk Assessment: Do you want to hurt yourself or someone else? Patient reports no [facility] desire to harm self or others. [facility] 23:12 21:23 Onset of symptoms was August 02, 2021 [place] [address] 23:12 21:23 Method Of Arrival: EMS [place] [address] 23:12 21:23 BP 152 / 73; Pulse 82bpm; Resp 16bpm; Pulse Ox 96% RA; Temp 97.9F Oral; 90.72 kg; [facility] Height 5 ft. 1 in.; BMI: 37.7; Pain 6/10; ag7 23:12 21:23 Acuity: KANDY 2 [place] [address] 23:14 21:23 Immunization history: Adult Immunizations up to date, Client reports receiving ag7 the 2nd dose of the Covid vaccine, Flu vaccine is up to date. ag7 23:14 21:23 Social history: Smoking status: Patient reports the use of cigarette tobacco ag7 products, denies chronic smoking, but will smoke occasionally, Patient uses beer occasionally, ag7 23:16 21:23 Allergies: No Known Allergies; ag7 ag7 23:16 21:23 Home Meds: None; ag7 ag7 23:16 21:23 PMHx: Back pain; ag7 ag7 23:16 21:23 PMHx: Myocardial infarction; ag7 ag7 23:16 21:23 PMHx: periphernal neuropathy; ag7 ag7 23:16 21:23 PSHx: back surgery; ag7 ag7 08/03 02:25 02:24 Reassessment: This nurse attempt to call report, no success, callback pending ag7 ag7 02:08/02 21:50 Care prior to arrival: Medication(s) given: Normal saline infusion, 1000 ag7 mL, Nitroglycerin, x 2, IV initiated. 20 GA, in the left forearm, Oxygen administered. via nasal cannula, ag7
--- NOTE | 2021-08-02 23:19 | EDPHYS ---
Physician Documentation [facility] Name: Andrey Wells Age: 61 yrs Sex: Male : 1960 Arrival Date: 08/02/2021 Time: 22:34 Bed 12 Private MD: ED Physician Demetri Gao HPI: 08/02 22:35 This 61 yrs old Male presents to ER via EMS with complaints of Chest Pain. cp 22:35 The patient or guardian reports chest pain that is located primarily in the substernal cp area. 22:35 Onset: 1 hour(s) ago, started while sitting in chair. The pain does not radiate. cp Associated signs and symptoms: Pertinent positives: left arm pain and numbness, Pertinent negatives: abdominal pain, cough, lower extremity pain, lower extremity swelling, shortness of breath, vomiting. The chest pain is described as squeezing. Duration: The patient or guardian reports a single episode, markedly improved. Severity of pain: in the emergency department the pain has improved markedly. EMS care prior to arrival includes: aspirin, nitroglycerin, supplemental oxygen. Historical: - Allergies: 21:50 No Known Allergies; ag7 - Home Meds: 21:50 None [Active]; ag7 - PMHx: 21:50 NEUROPATHY; BACK; Myocardial infarction; ag7 - PSHx: 21:50 BACK SURGERY; ag7 - Immunization history:: Adult Immunizations up to date, Client reports receiving the 2nd dose of the Covid vaccine, Flu vaccine is up to date. - Social history:: Smoking status: Patient reports the use of cigarette tobacco products, denies chronic smoking, but will smoke occasionally, Patient uses beer occasionally. ROS: 22:38 Cardiovascular: Positive for chest pain, Negative for edema, palpitations. cp 22:38 Eyes: Negative for injury, pain, redness, and discharge. cp 22:38 Constitutional: Negative for body aches, chills, fever, poor PO intake. 22:38 Neck: Negative for pain with movement, pain at rest, stiffness. 22:38 Respiratory: Negative for cough, shortness of breath, wheezing. 22:38 Abdomen/GI: Negative for abdominal pain, vomiting, diarrhea, constipation. 22:38 Back: Negative for pain at rest, pain with movement. 22:38 Neuro: Negative for altered mental status, dizziness, weakness. 22:38 All other systems are negative. Exam: 22:05 ECG was reviewed by the Attending Physician. cp 22:45 Constitutional: The patient appears in no acute distress, alert, awake, cp non-diaphoretic, non-toxic, well developed, well nourished, obese. 22:45 Head/Face: Normocephalic, atraumatic. cp 22:45 Eyes: Periorbital structures: appear normal, Conjunctiva: normal, no exudate, no injection, Sclera: no appreciated abnormality, Lids and lashes: appear normal, bilaterally. 22:45 ENT: External ear(s): are unremarkable, Nose: is normal, Mouth: Lips: moist, Oral mucosa: moist, Posterior pharynx: Airway: no evidence of obstruction, patent. 22:45 Neck: ROM/movement: is normal, is supple, without pain, no range of motions limitations, no nuchal rigidity. 22:45 Chest/axilla: Inspection: normal, Palpation: is normal, no crepitus, no tenderness. 22:45 Cardiovascular: Rate: normal, Rhythm: regular, Edema: is not appreciated, JVD: is not appreciated. 22:45 Respiratory: the patient does not display signs of respiratory distress, Respirations: normal, no use of accessory muscles, no retractions, labored breathing, is not present, Breath sounds: are clear throughout, no decreased breath sounds, no stridor, no wheezing. 22:45 Abdomen/GI: Inspection: obese Bowel sounds: active, all quadrants, Palpation: abdomen is soft and non-tender, in all quadrants, rebound tenderness, is not appreciated, voluntary guarding, is not appreciated, involuntary guarding, is not appreciated. 22:45 Back: pain, is absent, ROM is normal. 22:45 Skin: no rash present. 22:45 Neuro: Orientation: to person, place \\T\\ time. Mentation: is normal, Motor: moves all fours, strength is normal, Sensation: no obvious gross deficits. Vital Signs: 21:50 BP 152 / 73; Pulse 82; Resp 16; Temp 97.9(O); Pulse Ox 96% on R/A; Weight 90.72 kg; ag7 Height 5 ft. 1 in. (154.94 cm); Pain 6/10; 23:45 BP 131 / 73; Pulse 86; Resp 18; Pulse Ox 100% ; Pain 6/10; ag7 08/03 00:00 BP 140 / 78; Pulse 85; Resp 18 S; Pulse Ox 96% on R/A; Pain 6/10; ag7 00:15 BP 145 / 73; Pulse 85; Resp 19 S; Pulse Ox 96% on R/A; Pain 6/10; ag7 01:00 BP 135 / 87; Pulse 92; Resp 19 S; Pulse Ox 98% on R/A; Pain 2/10; ag7 08/02 21:50 Body Mass Index 37.79 (90.72 kg, 154.94 cm) ag7 MDM: 08/02 22:35 Patient medically screened. cp 23:17 Data reviewed: vital signs, nurses notes, lab test result(s), EKG, radiologic studies, cp plain films. 23:17 The patient was not given aspirin in the Emergency Department. Administered by EMS. cp Test interpretation: by ED physician or midlevel provider: ECG, plain radiologic studies. Counseling: I had a detailed discussion with the patient and/or guardian regarding: the historical points, exam findings, and any diagnostic results supporting the discharge/admit diagnosis, lab results, radiology results, the need for further work-up and treatment in the hospital. Physician consultation: Alvaro Samaniego was called at 23:15, was contacted at 23:15, regarding admission, to the telemetry unit. patient's condition. 08/02 22:35 Order name: Basic Metabolic Panel; Complete Time: 23:12 cp 08/02 23:16 Interpretation: Normal except: NA 134; GLUC 265; GFR 71. lennox 08/02 22:35 Order name: CBC with Diff; Complete Time: 23:12 cp 08/03 00:40 Interpretation: Normal except: MCV 83.8. cp 08/02 22:35 Order name: LFT's; Complete Time: 23:12 cp 08/03 00:40 Interpretation: Normal except: ALB 3.1; GLOB 4.2; A/G 0.7. cp 08/02 22:35 Order name: Magnesium; Complete Time: 23:12 cp 08/02 22:35 Order name: NT PRO-BNP; Complete Time: 23:12 cp 08/02 22:35 Order name: PT-INR; Complete Time: 00:40 cp 08/03 00:40 Interpretation: Reviewed. cp 08/02 22:35 Order name: Troponin HS; Complete Time: 23:12 cp 08/03 00:41 Interpretation: Reviewed. 08/02 22:35 Order name: XRAY Chest (1 view) cp 08/02 22:35 Order name: EKG; Complete Time: 22:36 cp 08/02 22:35 Order name: Cardiac monitoring; Complete Time: 22:56 cp 08/02 22:35 Order name: EKG - Nurse/Tech; Complete Time: 22:56 cp 08/02 22:35 Order name: IV Saline Lock; Complete Time: 22:56 cp 08/02 22:35 Order name: Labs collected and sent; Complete Time: 22:56 cp 08/02 22:35 Order name: COVID-19 SARS RT PCR (Document "Date of Onset" if Symptomatic); Complete la1 Time: 00:40 08/03 00:40 Interpretation: Reviewed. 08/02 22:35 Order name: O2 Per Protocol; Complete Time: 22:57 cp 08/02 22:35 Order name: O2 Sat Monitoring; Complete Time: 22:57 cp EC:05 Rate is 91 beats/min. Rhythm is regular. NV interval is normal. QRS interval is normal. cp QT interval is normal. T waves are Inverted in leads III, aVR. Interpreted by me. Reviewed by me. Administered Medications: No medications were administered Disposition: 08/03 07:14 Co-signature as Attending Physician, Demetri Gao MD I agree with the assessment and lennox plan of care. Disposition Summary: 08/02/21 23:17 Hospitalization Ordered Hospitalization Status: Observation lennox Provider: Ke Ordonez cha Location: Telemetry/MedSurg (observation) lennox Condition: Stable lennox Problem: new lennox Symptoms: have improved lennox Bed/Room Type: Standard lennox Room Assignment: 407(08/03/21 00:45) eb1 Diagnosis - Chest pain, unspecified lennox Forms: - Medication Reconciliation Form lennox - SBAR form lennox Signatures: Dispatcher [employer] Demetri Kitchen MD MD cha Attema, Lee, PRODUCT SAFETY ADMINISTRATOR-C PRODUCT SAFETY ADMINISTRATOR-Cla1 Demetri Morales PA PA cp Basinger, Emily RN RN eb1 Maura Granados RN RN ag7 Corrections: (The following items were deleted from the chart) 08/02 23:14 21:23 Immunization history: Adult Immunizations up to date, Client reports receiving ag7 the 2nd dose of the Covid vaccine, Flu vaccine is up to date. ag7 23:14 21:23 Social history: Smoking status: Patient reports the use of cigarette tobacco ag7 products, denies chronic smoking, but will smoke occasionally, Patient uses beer occasionally, ag7 23:16 21:23 Allergies: No Known Allergies; ag7 ag7 23:16 21:23 Home Meds: None; ag7 ag7 23:16 21:23 PMHx: Back pain; ag7 ag7 23:16 21:23 PMHx: Myocardial infarction; ag7 ag7 23:16 21:23 PMHx: periphernal neuropathy; ag7 ag7 23:16 21:23 PSHx: back surgery; ag7 ag7 08/03 00:45 08/02 23:17 lennox eb1
--- NOTE | 2021-08-02 23:46 | P.HP ---
Certification for Inpatient Patient admitted to: Observation With expected LOS: <2 Midnights Patient will require the following post-hospital care: None Practitioner: I am a practitioner with admitting privileges, knowledge of patient current condition, hospital course, and medical plan of care. Services: Services provided to patient in accordance with Admission requirements found in Title 42 Section 412.3 of the Code of Federal Regulations Patient History Date of Service: 08/02/21 Reason for admission: Chest pain History of Present Illness: 61-year-old male with history of "mild heart attacks" presents emergency department for chest pain. Patient reports his pain began this evening while sitting watching TV pain began in his left arm then into his chest described as stabbing no other associated symptoms. His EKG was without ST elevation initial troponin negative chest x-ray unremarkable. Patient reports he has not had cardiac evaluation in many years he has never had heart catheterization. Patient was given aspirin and nitroglycerin x2 by EMS which she did report improved his pain. ED provider wishes to admit for further ev aluation and management/ACS rule out. Allergies No Known Allergies Allergy (Verified 12/31/17 19:00) Home Medications: Acetaminophen with Codeine [Acetaminophen-Cod #3 Tablet] 1 tab PO Q6HP PRN 11/19/16 Pregabalin [Lyrica*] 50 mg PO BID 11/19/16 Aspirin 81 mg PO DAILY #30 tab.chew 01/02/18 Atorvastatin Calcium [Lipitor] 40 mg PO BEDTIME #30 tab 01/02/18 - Past Medical/Surgical History Diabetic: No -: obesity -: AK -: chronic back pain -: Peripheral neuropathy -: Back surgery Psychosocial/ Personal History: Lives at home with his significant other - Family History Father -: Diabetes, Stroke Brother -: Cancer Mother Notes: Lupus Sister Notes: Lupus - Social History Smoking Status: Never smoker Alcohol use: Yes CD- Drugs: No Caffeine use: No Place of Residence: Home Review of Systems 10-point ROS is otherwise unremarkable Cardiovascular: Chest Pain Physical Examination - Physical Exam General: Alert, In no apparent distress, Oriented x3 HEENT: Atraumatic, PERRLA, Mucous membr. moist/pink, EOMI, Sclerae nonicteric Neck: Supple, 2+ carotid pulse no bruit, No LAD, Without JVD or thyroid abnormality Respiratory: Clear to auscultation bilaterally, Normal air movement Cardiovascular: Regular rate/rhythm, Normal S1 S2 Gastrointestinal: Normal bowel sounds, No tenderness Musculoskeletal: No tenderness Integumentary: No rashes Neurological: Normal gait, Normal speech, Normal strength at 5/5 x4 extr, Normal tone, Normal affect Lymphatics: No axilla or inguinal lymphadenopathy - Studies Laboratory Data (last 24 hrs) 08/02/21 22:06: WBC 8.8, Hgb 14.5, Hct 41.4, Plt Count 278 08/02/21 22:06: Sodium 134 L, Potassium 3.8, BUN 7, Creatinine 1.06, Glucose 265 H, Magnesium 2.1, Total Bilirubin 0.2, AST 21, ALT 41, Alkaline Phosphatase 106 Assessment and Plan - Plan Assessment: Chest pain rule out ACS Hyperglycemia Plan: Chest pain rule out ACS: Trend troponin, monitor on telemetry, cardiology consult in place. Aspirin, statin, beta-jessica therapy. Patient denies previous heart catheterization reports he has had 2 "mini heart attacks" Hyperglycemia: Suspect diabetes type 2, A1c ordered mild sliding scale insulin ADA diet. DVT PPX: Lovenox Code status: Full Discharge Plan: Home Plan to discharge in: 24 Hours - Advance Directives Does patient have a Living Will: No Does patient have a Durable POA for Healthcare: No - Code Status/Comfort Care Code Status Assessed: Yes (Full code) Critical Care: No Time Spent Managing Pts Care (In Minutes): 55
[2021-08-02 23:51] LABS: Protime INR 0.9
[2021-08-03] MEDS ORDERED: ONDANSETRON 4 MG/2 ML VIAL IV PRN (04:53)
[2021-08-03] MEDS ORDERED: MORPHINE 2 MG/ML SYR IV PRN (04:53)
[2021-08-03 05:27] LABS: Absolute Lymphocytes (CBC) 3.8 K/uL (0.7-4.9); Hematocrit 40.7 % (39.6-49.0); Lymphocytes % 42.3 % (15.3-44.8); MPV 7.2 fL (7.6-11.3); RBC Red Blood Cell Count 4.85 M/uL (4.33-5.43)
[2021-08-03 05:57] LABS: ALT/SGPT 37 U/L (12-78); AST/SGOT 23 U/L (15-37); Albumin 3.1 g/dL (3.4-5.0); Alkaline Phosphatase 87 U/L (45-117); BUN Blood Urea Nitrogen 8 mg/dL (7-18); Bicarbonate 26 mmol/L (21-32); Bilirubin Total 0.3 mg/dL (0.2-1.0); Glucose Level 161 mg/dL (74-106); HDL Cholesterol 56 mg/dL (40-60); LDL Cholesterol, Calculated 95 mg/dL (<130); Potassium 3.9 mmol/L (3.5-5.1); Protein, Total 7.3 g/dL (6.4-8.2); Sodium Level 136 mmol/L (136-145); Troponin High Sensitivity 8.4 pg/mL (<58.9)
[2021-08-03] MEDS: PANTOPRAZOLE 40MG TABLET PO SCH (06:27)
[2021-08-03] MEDS: METOPROLOL TAR 25 MG TAB PO SCH ×2 (06:27→16:54)
[2021-08-03 06:31] VITALS: BMI 36.2
[2021-08-03] MEDS: INSULIN -REGULAR HUMAN 50 UNIT/0.5 ML ML SQ SCH ×4 (07:30→19:57)
[2021-08-03] MEDS: ENOXAPARIN 40 MG/0.4 ML SQ SCH (08:54)
[2021-08-03] MEDS: ASPIRIN EC 81 MG TAB PO SCH (08:54)
[2021-08-03] MEDS ORDERED: POTASSIUM 25 MEQ EFFERV TAB PO ONE (09:00)
--- NOTE | 2021-08-03 13:12 | RAD REPORT ---
EXAM DESCRIPTION: RAD - Chest Single View - 08/02/2021 11:00 pm CLINICAL HISTORY: 61 years, Male, CHEST PAIN COMPARISON: None FINDINGS: Single view of the chest was obtained portable. No prior films are available for compariso n. The lung volume is decreased. The heart is prominent with age is accentuated most likely due to bilateral pericardial fat pads. Minimal linear densities within the lung bases. No significant pleura l effusions. No focal areas of consolidation. The rest of the soft tissue and bony structures demonst rate to be unremarkable. IMPRESSION: Low lung volume. No focal areas of consolidation. Electronically signed by: Vladimir Sarah MD 08/02/2021 11:13 PM CDT Due to temporary technical issues with the PACS/Fluency reporting system, reports are being signed by the in house radiologist without review as a courtesy to ensure prompt reporting. The interpreting r adiologist is fully responsible for the content of the report.
--- NOTE | 2021-08-03 14:07 | CON ---
Date of Consultation: 08/03/2021 Reason For Consultation: Unstable angina. History Of Present Illness: Mr. Welsl is 61, has a history of neuropathy, borderline diabetes, h ypertension. Apparently, he came in with substernal chest pain, severe tightness radiating to both s houlders with exertion, diaphoresis, shortness of breath. No nausea, vomiting, palpitations, syncope , fever or chills. AR has been ruled out. Apparently, he has had 2 similar episodes in the past, bu t nobody did anything about it. According to him, he has never had a stress test, echo, or a cathete rization. Past Medical History: As stated above. Allergies: NONE. Medications: At home are none. Review of Systems: Negative. Social History: Negative. Family History: Positive for heart disease. Physical Examination: Vital Signs: Blood pressure 168/87. Vital signs stable otherwise. Afebrile. Sinus rhythm. HEENT: Negative. Neck: Supple with no bruit. Chest: Clear. Cardiac: Revealed a regular rhythm and rate. No murmurs, gallops, or rubs. Abdomen: Benign. Extremities: Revealed no clubbing, cyanosis, or edema. Diagnostic Data: As stated above. EKG is unremarkable. Chest x-ray is unremarkable. Troponin is n egative. Impression And Plan: This is a patient with hypertension, diabetes, obesity, classic symptoms for un stable angina. I recommend a left heart catheterization to define his coronary anatomy. The patient understands the risk and the benefits of the procedure and he agrees to proceed. He should be on a statin and low-dose beta-jessica. He should be on aspirin and he should be on probably metformin. I will discuss the case further with Dr. Ordonez. SHIRA/AMANDA Voice ID: [id number] Report ID: [id number]
--- NOTE | 2021-08-03 16:35 | P.PN ---
Date of Service: 08/03/21 Subjective: no current chest pain no SOB reports h/o snoring, told he stops breathing at times during sleep, no sleep study ROS: 10 point ROS as noted above, otherwise negative Physical exam GEN: Alert, oriented, NAD HEENT: Normal conjunctiva, sclera anicteric CV: Regular rate and rhythm, no edema Pulm: Non-labored respirations on room air ABD: Soft, nontender, nondistended Neuro: Normal speech, normal affect Problem List chest pain, unstable angina Hyperglycemia h/o "2 mini heart attacks" patient with risk factors and concerning presentation for unstable angina cardiology consulted - plans for cath tomorrow has not had routine follow up with a physician in a long time likely has sleep apnea, recommended outpatient sleep study a1c pending this morning VTE: lovenox Code: full Dispo: home, likely tomorrow after cath Time Spent Managing Pts Care (In Minutes): 35
[2021-08-03] MEDS ORDERED: ATORVASTATIN 40 MG TAB PO SCH (21:00)
[2021-08-04 04:38] LABS: Absolute Lymphocytes (CBC) 3.6 K/uL (0.7-4.9); Hematocrit 43.2 % (39.6-49.0); Lymphocytes % 37.6 % (15.3-44.8); MPV 7.7 fL (7.6-11.3); RBC Red Blood Cell Count 5.08 M/uL (4.33-5.43)
[2021-08-04 05:05] LABS: ALT/SGPT 36 U/L (12-78); AST/SGOT 24 U/L (15-37); Albumin 3.3 g/dL (3.4-5.0); Alkaline Phosphatase 77 U/L (45-117); BUN Blood Urea Nitrogen 8 mg/dL (7-18); Bicarbonate 26 mmol/L (21-32); Bilirubin Total 0.4 mg/dL (0.2-1.0); Glucose Level 149 mg/dL (74-106); Protein, Total 7.6 g/dL (6.4-8.2); Sodium Level 134 mmol/L (136-145)
[2021-08-04] MEDS: ASPIRIN EC 81 MG TAB PO SCH (05:31)
[2021-08-04] MEDS: PANTOPRAZOLE 40MG TABLET PO SCH (05:32)
[2021-08-04] MEDS: METOPROLOL TAR 25 MG TAB PO SCH (05:32)
[2021-08-04] MEDS ORDERED: NA CHLORIDE 0.9% 0 ML ONE ×2 (05:35→06:13)
[2021-08-04] MEDS ORDERED: HEPA 1000U/500MLS 1,000 UNIT/500 ML BAG IV ONE (05:52)
[2021-08-04] MEDS ORDERED: LIDOCAINE 1% 20 ML MDV ONE (05:52)
[2021-08-04] MEDS ORDERED: NA CHLORIDE 0.9% 500 ML ONE (06:10)
[2021-08-04] MEDS ORDERED: FENTANYL CITR 100 MCG/2 ML ONE (06:12)
[2021-08-04] MEDS ORDERED: MIDAZOLAM HCL 2 MG/2 ML INJ ONE ×3 (06:12→06:40)
[2021-08-04] MEDS ORDERED: NITROGLYCERIN 100 MCG/ML SYR (for cath lab use only) IV ONE (06:13)
[2021-08-04] MEDS ORDERED: ATROPINE SULF 1 MG/10 ML SYR IV ONE (06:13)
[2021-08-04] MEDS ORDERED: HYDRALAZINE HCL 20 MG/ML VIAL ONE (06:46)
--- NOTE | 2021-08-04 06:55 | P.DS ---
Admission Date: 08/04/21 Discharge Date: 08/04/21 Disposition: ROUTINE DISCHARGE Discharge Condition: GOOD Reason for Admission: Chest pain Consultations: Cardiology - Dr. Clement Procedures: Problem List chest pain, unstable angina Diabetes Mellitus, non-insulin dependent - new diagnosis h/o "2 mini heart attacks" Brief History of Present Illness: 61yo M, PMH: "mild heart attacks" presented to ED with chest pain. Pain occurred while sitting/watching TV, described as stabbing sensation in left chest/arm. EKG was without ST elevation initial troponin negative chest x-ray unremarkable. Patient reports he has not had cardiac evaluation in many years he has never had heart catheterization. Patient was given aspirin and nitroglycerin x2 by EMS which he did report improved his pain. ED provider wishes to admit for further evaluation and management/ACS rule out. Hospital Course: Chest pain was evaluated by EKG, chest x-ray, troponins. Cardiology was consulted and concerned patient was experiencing unstable angina. Patient underwent cardiac catheterization on 08/04, which did not reveal any significant coronary artery disease, and did not require intervention. He was noted to have elevated blood pressure and hemoglobin A1c: 7.1. He was deemed stable for discharge home. Prescribed metoprolol, lisinopril, atorvastatin, and metformin. Metformin to be started at least 48hrs after cardiac catheterization. Recommend to start on Saturday, 08/07 Follow up: PCP within 1 week. Cardiology in ~2 weeks. Patient likely has sleep apnea as well. Recommended to discuss further with PCP and have a sleep study. Vital Signs/Physical Exam: Temp Pulse Resp BP Pulse Ox 97.6 F 73 18 152/90 H 95 08/04/21 04:00 08/04/21 04:00 08/04/21 04:00 08/04/21 04:00 08/04/21 04:00 Physical exam GEN: Alert, oriented, NAD HEENT: Normal conjunctiva, sclera anicteric CV: Regular rate and rhythm, no edema Pulm: Non-labored respirations on room air ABD: Soft, nontender, nondistended Neuro: Normal speech, normal affect Laboratory Data at Discharge: WBC 9.6 K/uL (4.3-10.9) 08/04/21 04:01 Hgb 14.7 g/dL (13.6-17.9) 08/04/21 04:01 Hct 43.2 % (39.6-49.0) 08/04/21 04:01 Plt Count 298 K/uL (152-406) 08/04/21 04:01 PT 9.9 SECONDS (9.5-12.5) 08/02/21 23:02 INR 0.90 08/02/21 23:02 Sodium Cancelled 08/04/21 06:00 Potassium Cancelled 08/04/21 06:00 BUN Cancelled 08/04/21 06:00 Creatinine Cancelled 08/04/21 06:00 Glucose Cancelled 08/04/21 06:00 Magnesium 2.1 mg/dL (1.8-2.4) 08/02/21 22:06 Total Bilirubin 0.4 mg/dL (0.2-1.0) 08/04/21 04:01 AST 24 U/L (15-37) 08/04/21 04:01 ALT 36 U/L (12-78) 08/04/21 04:01 Alkaline Phosphatase 77 U/L (45-117) 08/04/21 04:01 Triglycerides 171 mg/dL (<150) H 08/03/21 05:13 Cholesterol 185 mg/dL (<200) 08/03/21 05:13 HDL Cholesterol 56 mg/dL (40-60) 08/03/21 05:13 Cholesterol/HDL Ratio 3.30 08/03/21 05:13 Home Medications: Atorvastatin Calcium [Lipitor] 40 mg PO BEDTIME 30 Days #30 tab 08/04/21 Lisinopril [Zestril] 10 mg PO DAILY 30 Days #30 tablet 08/04/21 Metformin HCl [Glucophage*] 500 mg PO BIDWM 30 Days #60 tab 08/04/21 Metoprolol Tartrate [Lopressor*] 25 mg PO BID 30 Days #60 tab 08/04/21 New Medications: Metformin HCl [Glucophage*] 500 mg PO BIDWM 30 Days #60 tab Atorvastatin Calcium [Lipitor] 40 mg PO BEDTIME 30 Days #30 tab Metoprolol Tartrate [Lopressor*] 25 mg PO BID 30 Days #60 tab Lisinopril [Zestril] 10 mg PO DAILY 30 Days #30 tablet Followup: Hiro Clement MD [ACTIVE - CAN ADMIT] - NONE,NONE [Primary Care Provider] - Time spent managing pt's care (in minutes): 45
[2021-08-04] MEDS: INSULIN -REGULAR HUMAN 50 UNIT/0.5 ML ML SQ SCH ×2 (07:29→11:27)
--- NOTE | 2021-08-04 07:47 | EKG ---
Test Date: 2021-08-02 Test Time: 21:59:48 Press Room Supervisor: DENG MEASUREMENT RESULTS: Intervals: Rate: 91 MS: 176 QRSD: 80 QT: 386 QTc: 474 [place]: P: 34 MS: 176 QRS: -12 T: -5 INTERPRETIVE STATEMENTS: Normal sinus rhythm Normal ECG Compared to ECG 11/18/2019 19:43:44 ST (T wave) deviation no longer present Electronically Signed On 08-04-21 07:42:42 CDT by Hiro Clement
[2021-08-04] MEDS: ENOXAPARIN 40 MG/0.4 ML SQ SCH (08:01)
--- NOTE | 2021-08-04 08:08 | ECHO ---
HEIGHT: 5 ft 1 in WEIGHT: 192 lb 0 oz DATE OF STUDY: 08/03/[address]: Hiro Clement MD 2-DIMENSIONAL: YES M.MODE: YES DOPPLER: YES COLOR FLOW: YES TDS: PORTABLE: YES DEFINITY: BUBBLE STUDY: DIAGNOSIS: CHEST PAIN CARDIAC HISTORY: CATHERIZATION: SURGERY: PROSTHETIC VALVE: PACEMAKER: MEASUREMENTS (cm) DIASTOLIC (NORMALS) SYSTOLIC (NORMALS) IVSd 1.2 (0.6-1.2) LA Diam 3.5 (1.9-4.0) LVEF 57% LVIDd 4.4 (3.5-5.7) LVIDs 3.1 (2.0-3.5) %FS 30% LVPWd 1.0 (0.6-1.2) Ao Diam 3.4 (2.0-3.7) 2 DIMENSIONAL ASSESSMENT: RIGHT ATRIUM: NORMAL LEFT ATRIUM: NORMAL RIGHT VENTRICLE: NORMAL LEFT VENTRICLE: NORMAL TRICUSPID VALVE: NORMAL MITRAL VALVE: NORMAL PULMONIC VALVE: NORMAL AORTIC VALVE: NORMAL PERICARDIAL EFFUSION: NONE AORTIC ROOT: NORMAL LEFT VENTRICULAR WALL MOTION: NORMAL DOPPLER/COLOR FLOW: MILD MITRAL REGURGITATION. COMMENTS: NORMAL LEFT VENTRICULAR EJECTION FRACTION 55-60%. NORAML WALL MOTION. MILD MITRAL REGURGITATION. TECHNOLOGIST: WEN NUÑEZ
[2021-08-04 08:30] VITALS: O2SAT 98
[2021-08-04] MEDS ORDERED: ACETAMINOPHEN 500 MG TAB PO PRN (10:00)
[2021-08-04 11:29] VITALS: BP 142/67; TEMP 97.9
--- NOTE | 2021-08-04 17:49 | OP ---
Date of Procedure: 08/04/2021 Surgeon: Hiro Clement MD Pool Servicer: Shanda Bacon. Admitted on 08/02/2021 with unstable angina. He was brought to the [facility] today on 08/04/2021. In the [facility], he underwent selective coronary arteriogram, left heart catheterization. Indication w as unstable angina. Procedure In Detail: The patient was prepped and draped in routine sterile fashion. Given Versed an d fentanyl for sedation. A 6-Slovak sheath introduced in the right common femoral artery using the S eldinger technique. Angiography there was normal. Angio-Seal was used to close the case. Benson c atheter left and right were used to cannulate the coronary arteries. The left main was normal. LAD was normal. The circumflex was large, dominant, free of disease. The right coronary was normal, sma ll, and nondominant. There were no focal stenosis. There were no complications. Patient tolerated the procedure well. Blood Loss: 5 mL. Total Conscious Sedation: 30 minutes. Final Diagnoses: 1.Severe hypertension. Patient received IV hydralazine 10 mg in the [facility]. Pressure was 240 sys tolic even after sedation. 2.Normal coronaries. Plan: Plan is for medical therapy for hypertension and dyslipidemia. He can go home today after 2 h ours of bedrest. I will see him in the office in 2 weeks. SHIRA/AMANDA Voice ID: [id number] Report ID: [id number]
== END 2021-08-04 13:43 | disposition home or self-care (01) | DRG 287 ==
LOC: ER 21:54 → ERHOLD 23:37 → 4TH 08-03 04:39 → OBSVTOIN 08-04 09:06
PROVIDERS: ADMIT Hospitalist; ATTEND Hospitalist
PROC: B201YZZ Plain Radiography of Multiple Coronary Arteries using Other Contrast (ICD-10-PCS; principal; 2021-08-04)
DX: I20.0 Unstable angina (principal); E66.9 Obesity, unspecified; Z68.36 Body mass index [BMI] 36.0-36.9, adult; M54.9 Dorsalgia, unspecified; E11.9 Type 2 diabetes mellitus without complications; G47.30 Sleep apnea, unspecified; I10 Essential (primary) hypertension; G62.9 Polyneuropathy, unspecified; I25.2 Old myocardial infarction; Z20.822 Contact with and (suspected) exposure to COVID-19
CPT/HCPCS: 36415; 71045; 80048; 80053; 80061; 80076; 82947; 83036; 83735; 83880; 84439; 84443; 84484; 85025; 85610; 93005; 93306; 93454; 99285; C1760; C1893; G0269; G0378; J0360; J0583; J1644; J1650; J1815; J2250; J3010; J7040; Q9967; U0003

== ENCOUNTER 2021-10-16 13:25 | Emergency (ER) | payer OTHER ==
--- NOTE | 2021-10-16 15:10 | RAD REPORT ---
EXAM DESCRIPTION: RAD - Chest Single View - 10/16/2021 2:55 pm CLINICAL HISTORY: SOB COMPARISON: Portable 08/02/2021 TECHNIQUE: AP portable chest image was obtained 10/16/2021 2:55 pm . FINDINGS: No focal lung parenchymal process. Interstitial pattern is similar or less prominent than comparison study. Heart and vasculature are normal. No measurable pleural effusion and no pneumothora x. No acute bony abnormality seen. No acute aortic findings suspected. IMPRESSION: No acute cardiopulmonary process.
[2021-10-16 15:45] LABS: Absolute Lymphocytes (CBC) 3.6 K/uL (0.7-4.9); Hematocrit 47.3 % (39.6-49.0); Lymphocytes % 32.3 % (15.3-44.8); MPV 7.5 fL (7.6-11.3)
[2021-10-16 15:47] LABS: Protime INR 1.01
[2021-10-16 16:13] LABS: Albumin 3.9 g/dL (3.4-5.0); Bilirubin Direct 0.1 mg/dL (0-0.2); Bilirubin Total 0.4 mg/dL (0.2-1.0); Magnesium 2.6 mg/dL (1.8-2.4); Potassium 3.9 mmol/L (3.5-5.1); Protein, Total 8.9 g/dL (6.4-8.2); Troponin High Sensitivity 5.6 pg/mL (<58.9)
--- NOTE | 2021-10-16 17:31 | EDPHYS ---
Physician Documentation [facility] Name: Andrey Wells Age: 61 yrs Sex: Male : 1960 Arrival Date: 10/16/2021 Time: 13:27 Bed 12 Private MD: Tan Bridgesh ED Physician Rebel Ordonez HPI: 10/16 17:10 This 61 yrs old Male presents to ER via Ambulatory with complaints of cp Shortness Of Breath, Medication Refill, Weakness. 17:10 The patient has shortness of breath at rest. cp 17:10 Onset: The symptoms/episode began/occurred gradually. Duration: The symptoms are cp intermittent. The patient's shortness of breath has no apparent modifying factors. Associated signs and symptoms: Pertinent negatives: chest pain, non-productive cough, productive cough, diaphoresis, dizziness, fever, vomiting, abdominal pain. Severity of symptoms: in the emergency department the symptoms are unchanged despite home interventions. Patient reports running out of prescribed medications for HTN, DM, and hyperlipidemia 3 weeks ago. Patient reports he does not have appt with family physician, DR Bridges, until next month. Historical: - Allergies: 14:08 No Known Allergies; ss - PMHx: 14:08 BACK; Myocardial infarction; neuropathy; ss - Immunization history:: Client reports receiving the 2nd dose of the Covid vaccine. - Social history:: Smoking status: Patient/guardian denies using tobacco, but has a distant history of tobacco abuse. ROS: 17:12 Respiratory: Positive for shortness of breath, Negative for cough, wheezing. cp 17:12 Eyes: Negative for injury, pain, redness, and discharge. cp 17:12 Constitutional: Negative for body aches, chills, fever, poor PO intake. 17:12 ENT: Negative for drainage from ear(s), ear pain, sore throat, difficulty swallowing, difficulty handling secretions. 17:12 Cardiovascular: Negative for chest pain, edema, palpitations. 17:12 Abdomen/GI: Negative for abdominal pain, nausea, vomiting, and diarrhea. 17:12 Back: Negative for pain at rest, pain with movement. 17:12 : Negative for urinary symptoms. 17:12 Neuro: Negative for altered mental status, dizziness, headache, syncope, weakness. 17:12 All other systems are negative. Exam: 17:15 Constitutional: The patient appears in no acute distress, alert, awake, cp non-diaphoretic, non-toxic, well developed, well nourished, obese. 17:15 Head/Face: Normocephalic, atraumatic. cp 17:15 Eyes: Periorbital structures: appear normal, Conjunctiva: normal, no exudate, no injection, Sclera: no appreciated abnormality, Lids and lashes: appear normal, bilaterally. 17:15 ENT: External ear(s): are unremarkable, Nose: is normal, Mouth: Lips: moist, Oral mucosa: pink and intact, moist, Posterior pharynx: Airway: no evidence of obstruction, patent. 17:15 Neck: ROM/movement: is normal, is supple, without pain, no range of motions limitations. 17:15 Chest/axilla: Inspection: normal, Palpation: is normal, no crepitus, no tenderness. 17:15 Cardiovascular: Rate: normal, Rhythm: regular, Edema: is not appreciated, JVD: is not appreciated. 17:15 Respiratory: the patient does not display signs of respiratory distress, Respirations: normal, no use of accessory muscles, no retractions, labored breathing, is not present, Breath sounds: are clear throughout, no decreased breath sounds, no stridor, no wheezing. 17:15 Abdomen/GI: Inspection: abdomen appears normal, Palpation: abdomen is soft and non-tender, in all quadrants. 17:15 Back: pain, is absent, ROM is normal. 17:15 Neuro: Orientation: to person, place \\T\\ time. Mentation: is normal, Motor: moves all fours, strength is normal, Sensation: is normal, Gait: is steady, at a normal pace, without difficulty. 17:27 ECG was reviewed by the Attending Physician. cp Vital Signs: 14:04 BP 144 / 82; Pulse 93; Resp 16; Temp 97.7(TE); Pulse Ox 96% on R/A; Weight 83.91 kg; ss Height 5 ft. 4 in. (162.56 cm); Pain 0/10; 14:04 Body Mass Index 31.75 (83.91 kg, 162.56 cm) ss MDM: 17:11 Patient medically screened. cp 17:30 Data reviewed: vital signs, nurses notes, lab test result(s), EKG, radiologic studies, cp plain films. 17:30 Differential diagnosis: asthma, Bronchitis CHF exacerbation, Chronic Obstructive cp Pulmonary Disease Myocardial Infarction pneumonia, Pneumothorax pulmonary edema, Pulmonary Embolism Unstable Angina. Test interpretation: by ED physician or midlevel provider: ECG, plain radiologic studies. Counseling: I had a detailed discussion with the patient and/or guardian regarding: the historical points, exam findings, and any diagnostic results supporting the discharge/admit diagnosis, the presence of at least one elevated blood pressure reading (>120/80) during this emergency department visit, lab results, radiology results, the need for outpatient follow up, a family practitioner, to return to the emergency department if symptoms worsen or persist or if there are any questions or concerns that arise at home. 10/16 14:22 Order name: Basic Metabolic Panel; Complete Time: 17:07 10/16 17:07 Interpretation: Normal except: NA 133; GLUC 247; GFR 82. 10/16 14:22 Order name: CBC with Diff; Complete Time: 16:05 10/16 16:05 Interpretation: Normal except: WBC 11.0; RBC 5.50; MPV 7.5. 10/16 14:22 Order name: LFT's; Complete Time: 17:07 10/16 17:07 Interpretation: Normal except: AST 40; TP 8.9; GLOB 5.0; A/G 0.8. 10/16 14:22 Order name: Magnesium; Complete Time: 17:07 10/16 17:07 Interpretation: MG 2.6; Reviewed. 10/16 14:22 Order name: NT PRO-BNP; Complete Time: 17:07 10/16 14:22 Order name: PT-INR; Complete Time: 16:05 10/16 14:22 Order name: Troponin HS; Complete Time: 17:07 10/16 14:22 Order name: XRAY Chest (1 view); Complete Time: 16:05 10/16 16:07 Interpretation: Report review. 10/16 14:22 Order name: EKG; Complete Time: 14:23 10/16 14:22 Order name: Cardiac monitoring; Complete Time: 17:09 10/16 14:22 Order name: EKG - Nurse/Tech; Complete Time: 17:09 10/16 14:22 Order name: IV Saline Lock; Complete Time: 15:37 10/16 14:22 Order name: Labs collected and sent; Complete Time: 15:37 cp 10/16 14:55 Order name: COVID-19 SARS RT PCR (Document "Date of Onset" if Symptomatic); Complete cp Time: 17:10/16 14:22 Order name: O2 Per Protocol; Complete Time: 17:09 cp 10/16 14:22 Order name: O2 Sat Monitoring; Complete Time: 17:09 cp EC: Rate is 81 beats/min. Rhythm is regular. LA interval is normal. QRS interval is normal. cp QT interval is normal. T waves are Inverted in lead aVR. Interpreted by me. Reviewed by me. Administered Medications: No medications were administered Disposition: 10/17 07:31 Co-signature as Attending Physician, Rebel Ordonez MD. rn Disposition Summary: 10/16/21 17:30 Discharge Ordered Location: Home cp Problem: new cp Symptoms: are unchanged cp Condition: Stable cp Diagnosis - Shortness of breath cp - Encounter for issue of repeat prescription cp Followup: cp - With: Perico Bridges, DO - When: as scheduled - Reason: Recheck today's complaints Discharge Instructions: - Discharge Summary Sheet cp - Medicine Refill at the Emergency Department cp - Shortness of Breath, Adult cp - Aspirin and Your Heart cp Forms: - Medication Reconciliation Form cp - Thank You Letter cp - Antibiotic Education cp - Prescription Opioid Use cp Prescriptions: - atorvastatin 40 mg Oral tablet - take 1 tablet by ORAL route At bedtime; 30 tablet; Refills: 0, Product cp Selection Permitted - Metformin 500 mg Oral Tablet - take 1 tablet by ORAL route every 12 hours . Take 1 tablet with morning meals cp AND evening meals; 60 tablet; Refills: 0, Product Selection Permitted - Metoprolol Tartrate 25 mg Oral Tablet - take 1 tablet by ORAL route 2 times per day with a meal; 60 tablet; Refills: 0, cp Product Selection Permitted - Lisinopril 10 mg Oral Tablet - take 1 tablet by ORAL route once daily; 30 tablet; Refills: 0, Product cp Selection Permitted Signatures: Dispatcher [employer] Rebel Artis MD MD rn Smirch, Shelby, RN RN ss Page, Corey, AMINATA COATES cp
--- NOTE | 2021-10-16 17:31 | ER ---
Nurse's Notes [facility] Name: Andrey Wells Age: 61 yrs Sex: Male : 1960 Arrival Date: 10/16/2021 Time: 13:27 Bed 12 Private MD: Perico Bridges Diagnosis: Shortness of breath;Encounter for issue of repeat prescription Presentation: 10/16 14:04 Chief complaint: Patient states: he hasn't been taking his medications for 3 weeks due ss to him not being able to get a refill. He has also been unable to get into see his PCP for refills Medications include Atorvastatin, lisinopril, Metformin and Metoprolol. Coronavirus screen: Client denies travel out of the [place] in the last 14 days. Ebola Screen: Patient denies exposure to infectious person. Patient denies travel to an Ebola-affected area in the 21 days before illness onset. Initial Sepsis Screen: Does the patient meet any 2 criteria? No. Patient's initial sepsis screen is negative. Does the patient have a suspected source of infection? No. Patient's initial sepsis screen is negative. Risk Assessment: Do you want to hurt yourself or someone else? Patient reports no desire to harm self or others. Onset of symptoms was October 13, 2021. 14:04 Method Of Arrival: Ambulatory ss 14:04 Acuity: KANDY 3 ss Triage Assessment: 14:11 General: Appears uncomfortable, Behavior is cooperative, anxious. Pain: Denies pain. ap3 Neuro: Level of Consciousness is awake, alert, obeys commands, Oriented to person, place, time, situation, Gait is steady. Cardiovascular: Reports chest tightness. Respiratory: Reports shortness of breath Onset: The symptoms/episode began/occurred gradually, the patient has mild shortness of breath. Historical: - Allergies: 14:08 No Known Allergies; ss - PMHx: 14:08 BACK; Myocardial infarction; neuropathy; ss - Immunization history:: Client reports receiving the 2nd dose of the Covid vaccine. - Social history:: Smoking status: Patient/guardian denies using tobacco, but has a distant history of tobacco abuse. Screenin:53 Abuse screen: Denies threats or abuse. Denies injuries from another. Nutritional ss screening: No deficits noted. Tuberculosis screening: Never had TB. Fall Risk None identified. Assessment: 14:12 Respiratory: Airway. ap3 17:53 General: Appears in no apparent distress. comfortable, Behavior is calm, cooperative. ss Pain: Denies pain. Neuro: Koroma Agitation-Sedation Scale (RASS): 0 - Alert and Calm Level of Consciousness is awake, alert, obeys commands. Cardiovascular: Capillary refill < 3 seconds is brisk in bilateral fingers Patient's skin is warm and dry. GI: No signs and/or symptoms were reported involving the gastrointestinal system. GI: Abdomen is round non-distended. Derm: Skin is intact, is healthy with good turgor, Skin is dry, Skin is pink, warm \\T\\ dry. normal. Musculoskeletal: Range of motion: intact in all extremities. Vital Signs: 14:04 BP 144 / 82; Pulse 93; Resp 16; Temp 97.7(TE); Pulse Ox 96% on R/A; Weight 83.91 kg; ss Height 5 ft. 4 in. (162.56 cm); Pain 0/10; 14:04 Body Mass Index 31.75 (83.91 kg, 162.56 cm) ss ED Course: 13:27 Patient arrived in ED. rg4 13:28 Perico Bridges DO is Private Physician. rg4 13:50 Demetri Morales PA is PHCP. cp 13:50 Rebel Ordonez MD is Attending Physician. cp 14:08 Triage completed. ss 14:08 Arm band placed on right wrist. ss 14:56 XRAY Chest (1 view) In Process Unspecified. EDMS 15:36 Inserted saline lock: 20 gauge in left antecubital area, using aseptic technique. Blood zm collected. 15:37 COVID-19 SARS RT PCR (Document "Date of Onset" if Symptomatic) Sent. zm 15:37 Basic Metabolic Panel Sent. zm 15:37 CBC with Diff Sent. zm 15:37 LFT's Sent. zm 15:37 Magnesium Sent. zm 15:37 NT PRO-BNP Sent. zm 15:37 PT-INR Sent. zm 15:37 Troponin HS Sent. zm 17:09 Simin Munson, RN is Primary Nurse. ss 17:28 Perico Bridges DO is Referral Physician. cp 17:52 No provider procedures requiring assistance completed. Patient did not have IV access ss during this emergency room visit. 17:53 Patient has correct armband on for positive identification. Bed in low position. Call ss light in reach. Administered Medications: No medications were administered Medication: 17:53 VIS not applicable for this client. ss Outcome: 17:30 Discharge ordered by . cp 17:52 Discharged to home ambulatory. ss 17:52 Condition: good 17:52 Discharge instructions given to patient, Instructed on discharge instructions, follow up and referral plans. medication usage, Demonstrated understanding of instructions, follow-up care, medications, Prescriptions given X 4. 17:56 Patient left the ED. ss Signatures: Dispatcher [employer] EDSD Simin Munson, RN RN ss Demetri Morales, Rema Miller cp rg4 Marilee James RN RN ap3 Pennie Guardado
[2021-10-16 18:16] VITALS: BP 144/82; TEMP 97.7; O2SAT 96
--- NOTE | 2021-10-17 08:21 | EKG ---
Test Date: 2021-10-16 Test Time: 17:25:32 Cloud Engagement Partner: ELÍAS MEASUREMENT RESULTS: Intervals: Rate: 81 IL: 176 QRSD: 86 QT: 412 QTc: 478 [place]: P: 0 IL: 176 QRS: 2 T: -5 INTERPRETIVE STATEMENTS: Normal sinus rhythm Normal ECG Compared to ECG 08/02/2021 21:59:48 No significant changes Electronically Signed On 10-17-21 08:18:22 CDT by Hiro Clement
== END 2021-10-16 17:56 | disposition home or self-care (01) ==
LOC: ER 13:25
DX: R06.02 Shortness of breath (principal); Z76.0 Encounter for issue of repeat prescription; I25.2 Old myocardial infarction; Z20.822 Contact with and (suspected) exposure to COVID-19
CPT/HCPCS: 93005; 85025; 80048; 36415; 83735; 85610; 80076; 84484; 83880; 71045; 99284; U0003

== ENCOUNTER 2022-04-18 17:29 | Emergency (ER) | payer OTHER ==
--- OUTSIDE RECORDS SUMMARY | 2022-04-18 17:31 | XMS REPORT | Continuity of Care Document ---
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 Center long-term current use of insulin [id number] Primary Problem Active Common insomnia [facility] [id number] Other Problem Active Common obesity [facility] due to - [facility] excess [facility] Allergies, Adverse Reactions, Alerts This patient has no known allergies or adverse reactions. Social History Social Habit Start Date Stop Date Quantity Comments Source History of Tobacco Use Co mmon [facility] Sex Assigned At Com mon [facility] Smoking Status Start Date Stop Date Source Never Smoker Common [facility] Medications Ordered Filled Start Stop Current Ordering Indication Dosage Frequency Signature Comments Components Source Medication Medication Date Date Medication? Clinician (SIG) Name Name traZODone traZODone No 1{table QD traZODone HCl 50 MG HCl 50 MG 8- t_at_be HCl 50 MG 00:00: dtime} 00 traZODone traZODone No 1{table QD traZODone HCl 50 MG HCl 50 MG 8 t_at_be HCl 50 MG 00:00: dtime} 00 Lisinopril Lisinopril No 1{table QD Lisinopril 10 MG 10 MG t} 10 MG Metoprolol Metoprolol No 1{table BID Metoprolol Tartrate 25 Tartrate 25 t_with_ Tartrate MG MG food} 25 MG metFORMIN metFORMIN No 1{table BID metFORMIN HCl 500 MG HCl 500 MG t_with_ HCl 500 MG a_meal} Atorvastati Atorvastati No 1{table QD Atorvastat n Calcium n Calcium t} in Calcium 40 MG 40 MG 40 MG Lisinopril Lisinopril No 1{table QD Lisinopril 10 MG 10 MG t} 10 MG Metoprolol Metoprolol No 1{table BID Metoprolol Tartrate 25 Tartrate 25 t_with_ Tartrate MG MG food} 25 MG metFORMIN metFORMIN No 1{table BID metFORMIN HCl 500 MG HCl 500 MG t_with_ HCl 500 MG a_meal} Atorvastati Atorvastati No 1{table QD Atorvastat n Calcium n Calcium t} in Calcium 40 MG 40 MG 40 MG Vital Signs Vital Name Observation Time Observation Value Comments Source height 2021-11-14 11:00:00 62.5 [in_i] [facility] weight 2021-11-14 11:00:00 188.8 [lb_av] [facility] temperature 2021-11-14 11:00:00 97.0 [degF] [facility] bmi 2021-11-14 11:00:00 33.98 kg/m2 [facility] oximetry 2021-11-14 11:00:00 95 % [facility] respiratory rate 2021-11-14 11:00:00 16 /min Comm on [facility] blood pressure 2021-11-14 11:00:00 125 mm[Hg] Common [facility] - systolic [facility] blood pressure 2021-11-14 11:00:00 60 mm[Hg] Common [facility] - diastolic [facility] Procedures This patient has no known procedures. Encounters Start End Encounter Admission Attending Care Care Encounter Source Date/Time Date/Time Type Type Clinicians Facility Department ID 2022-03-12 Outpatient Bridges, STLMLC STLMLC [id number] Common 07:48:02 Perico [address] [facility] 2022-03-07 Outpatient Bridges, STLMLC STLMLC [id number] Common 09:42:03 Perico [facility] 2021-11-14 Outpatient Bridges, STLMLC STLMLC [id number] Common 10:27:04 Perico [id number] [facility] 2021-11-16 2021-11-16 (TEL) STLMLC STLMLC [id number] Co mmon 00:00:00 00:00:00 [facility] 2021-11-14 2021-11-14 OFFICE STLMLC STLMLC [id number] Co mmon 00:00:00 00:00:00 VISIT NEW [facility] it PT LEVEL 3 [facility] Results This patient has no known results.
[2022-04-18] MEDS ORDERED: dexAMETHasone 10 MG/ML VIAL ONE (18:11)
[2022-04-18] MEDS ORDERED: HYDROCODONE/APAP 10/325 TAB ONE (18:11)
[2022-04-18 18:28] LABS: Urine Blood Negative (Negative); Urine Glucose Negative (Negative); Urine Protein Negative (Negative)
--- NOTE | 2022-04-18 18:42 | EDPHYS ---
Physician Documentation [facility] Name: Andrey Wells Age: 61 yrs Sex: Male : 1960 Arrival Date: 04/18/2022 Time: 17:30 Bed IW1 Private MD: Cyrus [facility] ED Physician Huey Bridges HPI: 04/18 18:12 This 61 yrs old Male presents to ER via Ambulatory with complaints of Low Back kb Pain. 18:12 The patient presents with pain that is acute, with no known mechanism of injury. The kb symptoms are located in the right low back. The pain does not radiate. The problem was sustained without known cause. Onset: The symptoms/episode began/occurred 4 day(s) ago. Modifying factors: The patient symptoms are alleviated by nothing, the patient symptoms are aggravated by any movement. Associated signs and symptoms: The patient has no apparent associated signs or symptoms. Severity of symptoms: At their worst the symptoms were moderate, in the emergency department the symptoms are unchanged. The patient has experienced a previous episode. The patient has not recently seen a physician. Pt reports right low back pain with no radiation, no injury/trauma, no urinary symptoms or flank pain. . Historical: - Allergies: 18:01 No Known Allergies; aa5 - PMHx: 18:01 BACK; Myocardial infarction; neuropathy; Diabetes mellitus; aa5 - PSHx: 18:01 back surgery; aa5 - Immunization history:: Adult Immunizations unknown. - Social history:: Smoking status: Patient reports the use of cigarette tobacco products, denies chronic smoking, but will smoke occasionally. ROS: 18:07 Constitutional: Negative for fever, chills, and weight loss. kb 18:07 Back: Positive for pain at rest, pain with movement, of the right low back. 18:07 All other systems are negative. Exam: 18:07 Constitutional: This is a well developed, well nourished patient who is awake, alert, kb and in no acute distress. Head/Face: Normocephalic, atraumatic. ENT: Moist Mucous membranes Chest/axilla: Normal chest wall appearance and motion. Cardiovascular: Regular rate and rhythm with a normal S1 and S2. No gallops, murmurs, or rubs. No pulse deficits. Respiratory: Respirations even and unlabored. No increased work of breathing. Talking in full sentences Abdomen/GI: Soft, non-tender. No distention Skin: Warm, dry with normal turgor. Normal color. MS/ Extremity: Pulses equal, no cyanosis. Neurovascular intact. Full, normal range of motion. Neuro: Awake and alert, GCS 15, oriented to person, place, time, and situation. Moves all extremities. Normal gait. Psych: Awake, alert, with orientation to person, place and time. Behavior, mood, and affect are within normal limits. 18:07 Back: pain, that is moderate, of the right low back, ROM is painful, normal spinal alignment noted, CVA tenderness, is absent, vertebral tenderness, is not appreciated. Vital Signs: 18:00 BP 125 / 59; Pulse 69; Resp 16 S; Temp 97.1(TE); Pulse Ox 98% on R/A; Weight 79.38 kg aa5 (R); Height 5 ft. 0 in. (152.40 cm) (R); 18:00 Body Mass Index 34.18 (79.38 kg, 152.40 cm) aa5 MDM: 18:04 Patient medically screened. kb 18:07 Data reviewed: vital signs, nurses notes. kb 18:12 Differential diagnosis: strain, sciatica, UTI. kb 18:40 Test considered but Not performed: Other Details CT scan, CBC, BMP considered. Pt has kb no CVA tenderness, no n/v/d/f, no hematuria. . Counseling: I had a detailed discussion with the patient and/or guardian regarding: the historical points, exam findings, and any diagnostic results supporting the discharge/admit diagnosis, lab results, the need for outpatient follow up, a family practitioner, to return to the emergency department if symptoms worsen or persist or if there are any questions or concerns that arise at home. 04/18 18:28 Order name: Urine Dipstick-Ancillary; Complete Time: 18:40 EDMS 04/18 18:05 Order name: Urine Dipstick-Ancillary (obtain specimen); Complete Time: 18:50 aa5 Administered Medications: 18:14 Drug: Decadron (dexamethasone) 10 mg Route: IM; Site: right gluteus; aa5 18:56 Follow up: Response: Medication administered at discharge. 18:14 Drug: [place] (HYDROcodone-acetaminophen) 10 mg-325 mg 1 tabs Route: PO; aa5 18:57 Follow up: Response: Medication administered at discharge. ss Disposition Summary: 04/18/22 18:41 Discharge Ordered Location: Home Condition: Stable kb Diagnosis - Low back pain kb Followup: kb - With: Emergency Department - When: As needed - Reason: Worsening of condition Followup: kb - With: Private Physician - When: 2 - 3 days - Reason: Recheck today's complaints, Continuance of care, Re-evaluation by your physician Discharge Instructions: - Discharge Summary Sheet kb - Musculoskeletal Pain kb Forms: - Medication Reconciliation Form kb - Thank You Letter kb - Antibiotic Education kb - Prescription Opioid Use kb Prescriptions: - Diclofenac Sodium 75 mg Oral tablet,delayed release (DR/EC) - take 1 tablet by ORAL route 2 times per day As needed; 30 tablet; Refills: 0, kb Product Selection Permitted - orphenadrine citrate 100 mg Oral Tablet Sustained Release - take 1 tablet by ORAL route 2 times per day As needed; 20 tablet; Refills: 0, kb Product Selection Permitted Signatures: Sherlyn Griffin FNP-C FNP-Nayely Trevizo, RN RN aa5 Simin Munson RN ss
--- NOTE | 2022-04-18 18:42 | ER ---
Nurse's Notes [facility] Name: Andrey Wells Age: 61 yrs Sex: Male : 1960 Arrival Date: 04/18/2022 Time: 17:30 Bed IW1 Private MD: Perico Bridges Diagnosis: Low back pain Presentation: 04/18 18:00 Chief complaint: Patient states: Right low back pain that began Saturday. Pt denies known aa5 injury, denies any other symptoms. Coronavirus screen: At this time, the client does not indicate any symptoms associated with coronavirus-19. Ebola Screen: Patient denies travel to an Ebola-affected area in the 21 days before illness onset. Initial Sepsis Screen: Does the patient meet any 2 criteria? No. Patient's initial sepsis screen is negative. Does the patient have a suspected source of infection? No. Patient's initial sepsis screen is negative. Risk Assessment: Do you want to hurt yourself or someone else? Patient reports no desire to harm self or others. Onset of symptoms was April 2022. 18:00 Acuity: KANDY 3 aa5 18:00 Method Of Arrival: Ambulatory aa5 Historical: - Allergies: 18:01 No Known Allergies; aa5 - PMHx: 18:01 BACK; Myocardial infarction; neuropathy; Diabetes mellitus; aa5 - PSHx: 18:01 back surgery; aa5 - Immunization history:: Adult Immunizations unknown. - Social history:: Smoking status: Patient reports the use of cigarette tobacco products, denies chronic smoking, but will smoke occasionally. Screenin:55 [facility] ED Fall Risk Assessment (Adult) History of falling in the last 3 months, ss including since admission No falls in past 3 months (0 pts). Abuse screen: Denies threats or abuse. Denies injuries from another. Nutritional screening: No deficits noted. Tuberculosis screening: Never had TB. Assessment: 18:55 General: Appears in no apparent distress. comfortable, Behavior is calm, cooperative. ss Neuro: Level of Consciousness is awake, alert, obeys commands, Oriented to person, place, time, situation. Cardiovascular: Capillary refill < 3 seconds is brisk in bilateral fingers. Respiratory: Airway is patent Respiratory effort is even, unlabored, Respiratory pattern is regular, symmetrical. Derm: Skin is intact, is healthy with good turgor, Skin is dry, Skin is pink, warm \T\ dry. normal. Musculoskeletal: Circulation, motion, and sensation intact. Range of motion: intact in all extremities, Swelling absent. Vital Signs: 18:00 BP 125 / 59; Pulse 69; Resp 16 S; Temp 97.1(TE); Pulse Ox 98% on R/A; Weight 79.38 kg aa5 (R); Height 5 ft. 0 in. (152.40 cm) (R); 18:00 Body Mass Index 34.18 (79.38 kg, 152.40 cm) aa5 ED Course: 17:30 Patient arrived in ED. as 17:31 Perico Bridges DO is Private Physician. as 18:00 Arm band placed on. aa5 18:01 Triage completed. aa5 18:04 Sherlyn Griffin FNP-C is [facility]. kb 18:04 Huey Bridges MD is Attending Physician. kb 18:55 Patient has correct armband on for positive identification. ss 18:55 No provider procedures requiring assistance completed. Patient did not have IV access ss during this emergency room visit. Administered Medications: 18:14 Drug: Decadron (dexamethasone) 10 mg Route: IM; Site: right gluteus; aa5 18:56 Follow up: Response: Medication administered at discharge. ss 18:14 Drug: [place] (HYDROcodone-acetaminophen) 10 mg-325 mg 1 tabs Route: PO; aa5 18:57 Follow up: Response: Medication administered at discharge. ss Medication: 18:55 VIS not applicable for this client. ss Outcome: 18:41 Discharge ordered by . kb 18:55 Discharged to home ambulatory, with family. ss 18:55 Condition: good 18:55 Discharge instructions given to patient. 18:56 Patient left the ED. ss Signatures: Sherlyn Griffin FNP-C FNP-Aga Black Audri RN RN aa5 Simin Munson RN RN ss
[2022-04-18 19:14] VITALS: BP 125/59; TEMP 97.1; O2SAT 98
== END 2022-04-18 18:56 | disposition home or self-care (01) ==
LOC: ER 17:29
DX: M54.50 Low back pain, unspecified (principal); I25.2 Old myocardial infarction; F17.210 Nicotine dependence, cigarettes, uncomplicated
CPT/HCPCS: 81003; 96372; 99283; J1100

== ENCOUNTER 2022-12-10 02:08 | Emergency (ER) | payer OTHER ==
--- OUTSIDE RECORDS SUMMARY | 2022-12-10 02:11 | XMS REPORT | Continuity of Care Document ---
:1960 Author Organization [facility] t Address [address] [place] [address] Care Team Providers Name Role Phone Perico Bridges Attending Clinician Unavailable Problems Condition Condition Condition Status Onset Resolution Last Treating Co mments Source Name Details Category Date Date Treatment Clinician Date [id number] Body mass Problem Com mon index [facility] [BMI] - [facility] 33.0-33.9, [facility] [id number] Coronary Problem Comm on artery [facility] disease of [facility] [place] artery of [facility] heart with Center stable angina pectoris [id number] Mixed Problem Common hyperlipid [facility] emia [facility] [id number] Essential Problem Comm on (primary) Spirit hypertensi - [facility] on [facility] 35434056 Sleep Problem Common apnea in [facility] adult [facility] [id number] Type 2 Problem Common diabetes [facility] mellitus - [facility] with [facility] long-term current use of insulin [id number] Primary Problem Common insomnia [facility] [id number] Other Problem Common obesity [facility] due to - [facility]I excess [facility] Allergies, Adverse Reactions, Alerts This patient has no known allergies or adverse reactions. Social History Social Habit Start Date Stop Date Quantity Comments Source History of Tobacco Use Co mmon [facility] Sex Assigned At Com mon [facility] Smoking Status Start Date Stop Date Source Never Smoker Common [facility] Medications Ordered Filled Start Stop Current Ordering Indication Dosage Frequency Signature Comments Components Source Medication Medication Date Date Medication? Clinician (SIG) Name Name traZODone traZODone No 1{table QD traZODone HCl 50 MG HCl 50 MG 11-14 t_at_be HCl 50 MG 00:00: dtime} 00 traZODone traZODone No 1{table QD traZODone HCl 50 MG HCl 50 MG 11-14 t_at_be HCl 50 MG 00:00: dtime} 00 [...] Calcium 40 MG 40 MG 40 MG metFORMIN metFORMIN No 1{table BID metFORMIN HCl 500 MG HCl 500 MG t_with_ HCl 500 MG a_meal} metFORMIN metFORMIN No metFORMIN HCl 500 MG HCl 500 MG HCl 500 MG Atorvastati Atorvastati No Atorvastat n Calcium n Calcium in Calcium 40 MG 40 MG 40 MG Metoprolol Metoprolol No 1{table BID Metoprolol Tartrate 25 Tartrate 25 t_with_ Tartrate MG MG food} 25 MG Lisinopril Lisinopril No 1{table QD Lisinopril 10 MG 10 MG t} 10 MG traZODone traZODone No 1{table QD traZODone HCl 50 MG HCl 50 MG t_at_be HCl 50 MG dtime} Vital Signs Vital Name Observation Time Observation Value Comments Source height 2021-11-14 11:00:00 62.5 [in_i] [facility] weight 2021-11-14 11:00:00 188.8 [lb_av] [facility] temperature 2021-11-14 11:00:00 97.0 [degF] [facility] bmi 2021-11-14 11:00:00 33.98 kg/m2 [facility] oximetry 2021-11-14 11:00:00 95 % [facility] respiratory rate 2021-11-14 11:00:00 16 /min Comm on [facility] blood pressure 2021-11-14 11:00:00 125 mm[Hg] [facility] systolic [facility] blood pressure 2021-11-14 11:00:00 60 mm[Hg] [facility] diastolic [facility] Procedures This patient has no known procedures. Encounters Start End Encounter Admission Attending Care Care Encounter Source Date/Time Date/Time Type Type Clinicians Facility Department ID 2022-03-12 Outpatient Bridges, STLMLC STLMLC [id number] Common 07:48:02 Perico [address] [facility] 2022-03-07 Outpatient Bridges, STLMLC STLMLC [id number] Common 09:42:03 Perico 41372 [facility] 2021-11-14 Outpatient Bridges, STLMLC STLMLC [id number] Common 10:27:04 Perico [id number] [facility] 2022-05-02 2022-05-02 (TEL) STLMLC STLMLC [id number] Co mmon 00:00:00 00:00:00 [facility] 2021-11-16 2021-11-16 (TEL) STLMLC STLMLC [id number] Co mmon 00:00:00 00:00:00 [facility] 2021-11-14 2021-11-14 OFFICE STLMLC STLMLC [id number] Co mmon 00:00:00 00:00:00 VISIT [facility] PT LEVEL 3 - [facility] Results This patient has no known results.
[2022-12-10] MEDS ORDERED: CEFTRIAXONE 1000 MG/VIAL ONE (03:12)
[2022-12-10] MEDS ORDERED: ACETAMINOPHEN 500 MG TAB ONE (03:12)
[2022-12-10] MEDS ORDERED: NA CHLORIDE 0.9% 2,000 ML ONE (03:12)
[2022-12-10 03:18] LABS: Protime INR 1.01
[2022-12-10 03:22] LABS: SARS-CoV-2 Antigen Rapid Res Negative (Negative)
[2022-12-10 03:23] LABS: Absolute Lymphocytes (CBC) 1.5 K/uL (0.7-4.9); Hematocrit 43.9 % (39.6-49.0); Lymphocytes % 16.7 % (15.3-44.8); MCV 85.5 fL (80-100); MPV 7.5 fL (7.6-11.3); Platelets 264 thou/uL (152-406); RBC Red Blood Cell Count 5.13 M/uL (4.33-5.43)
[2022-12-10 03:43] LABS: Albumin 3.4 g/dL (3.4-5.0); Bilirubin Direct 0.1 mg/dL (0-0.2); Bilirubin Indirect, Calculated 0.2 mg/dL (0.2-0.8); Bilirubin Total 0.3 mg/dL (0.2-1.0); Potassium 3.5 mEq/L (3.5-5.1); Troponin High Sensitivity 8.6 pg/mL (<58.9)
[2022-12-10] MEDS ORDERED: OSELTAMIVIR 75 MG CAP PO ONE (04:18)
[2022-12-10] MEDS ORDERED: AZITHROMYCIN 250 MG TAB ONE (04:18)
[2022-12-10 04:49] LABS: Specific Gravity 1.023 (1.005-1.030); Urine Bacteria None Seen /HPF (<20); Urine Bilirubin NEGATIVE (Negative); Urine Blood Negative (Negative); Urine Clarity Clear (Clear); Urine Color Light-Yellow (Yellow); Urine Glucose NEGATIVE (Negative); Urine Protein TRACE (Negative); Urine RBC None Seen /HPF (None Seen); Urine Urobilinogen 1+ (Normal)
[2022-12-10] MEDS ORDERED: NA CHLORIDE 0.9% 1,000 ML ONE (04:56)
[2022-12-10] MEDS ORDERED: IBUPROFEN 400 MG TAB ONE (04:56)
--- NOTE | 2022-12-10 05:21 | ER ---
Nurse's Notes [facility] Name: Andrey Wells Age: 62 yrs Sex: Male : 1960 Arrival Date: 12/10/2022 Time: 02:08 Bed 13 Private MD: Perico Bridges Diagnosis: Acute upper respiratory infection, unspecified;Influenza due to unidentified influenza virus with other manifestations-FLU B;Fever, unspecified Presentation: 12/10 02:24 Chief complaint: Patient states: chills back right leg and right foot cramping since 10 kl pm. Coronavirus screen: Vaccine status: Patient reports receiving the 2nd dose of the covid vaccine. Ebola Screen: Patient negative for fever greater than or equal to 101.5 degrees Fahrenheit, and additional compatible Ebola Virus Disease symptoms. Initial Sepsis Screen: Does the patient meet any 2 criteria? HR > 90 bpm. Does the patient have a suspected source of infection? No. Patient's initial sepsis screen is negative. Risk Assessment: Do you want to hurt yourself or someone else? Patient reports no desire to harm self or others. Onset of symptoms was December 09, 2022 at 22:00. 02:24 Method Of Arrival: Ambulatory 02:24 Acuity: KANDY 3 kl Triage Assessment: 02:26 General: Appears uncomfortable, Behavior is cooperative, anxious. Pain: Complains of kl pain in right mid back Pain currently is 9 out of 10 on a pain scale. Quality of pain is described as crampy, also reports cramping in right inner thigh and right foot. Historical: - Allergies: 02:25 No Known Allergies; kl - PMHx: 02:25 BACK; diabetes mellitus; Myocardial infarction; neuropathy; Hypertensive disorder; kl - PSHx: 02:25 back surgery; kl - Immunization history:: Adult Immunizations not up to date. - Social history:: Smoking status: Patient reports the use of cigarette tobacco products, denies chronic smoking, but will smoke occasionally. Screenin:53 [facility] ED Fall Risk Assessment (Adult) History of falling in the last 3 months, lg3 including since admission No falls in past 3 months (0 pts). Abuse screen: Denies threats or abuse. Denies injuries from another. Nutritional screening: No deficits noted. Tuberculosis screening: No symptoms or risk factors identified. Assessment: 02:53 General: Appears in no apparent distress. uncomfortable, Behavior is calm, cooperative. lg3 Pain: Complains of pain in back, body aches. Neuro: No deficits noted. [place] Agitation-Sedation Scale (RASS): 0 - Alert and Calm Level of Consciousness is awake, alert, obeys commands, Oriented to person, place, time, situation. Neuro: Reports headache weakness. Cardiovascular: No deficits noted. Denies chest pain, shortness of breath, Capillary refill < 3 seconds Clubbing of nail beds is absent JVD is absent Rhythm is sinus tachycardia. Respiratory: No deficits noted. Reports cough that is Airway is patent Respiratory effort is even, unlabored, Respiratory pattern is regular, symmetrical. GI: No deficits noted. Abdomen is round non-distended, Bowel sounds present X 4 quads. : No deficits noted. No signs and/or symptoms were reported regarding the genitourinary system. EENT: No deficits noted. No signs and/or symptoms were reported regarding the EENT system. Derm: No signs and/or symptoms reported regarding the dermatologic system. Skin is intact, is healthy with good turgor, Skin is diaphoretic, Skin is normal, Skin temperature is warm. Musculoskeletal: Circulation, motion, and sensation intact. Range of motion: intact in all extremities. Musculoskeletal: Reports body aches. 03:47 Reassessment: Patient appears in no apparent distress at this time. No changes from lg3 previously documented assessment. Patient and/or family updated on plan of care and expected duration. Pain level reassessed. Patient is alert, oriented x 3, equal unlabored respirations, skin warm/dry/pink. 04:47 Reassessment: Patient appears in no apparent distress at this time. No changes from lg3 previously documented assessment. Patient and/or family updated on plan of care and expected duration. Pain level reassessed. Patient is alert, oriented x 3, equal unlabored respirations, skin warm/dry/pink. 05:22 General: pt to DC post fluid aministration. lg3 05:59 Reassessment: Patient appears in no apparent distress at this time. No changes from lg3 previously documented assessment. Patient and/or family updated on plan of care and expected duration. Pain level reassessed. Patient is alert, oriented x 3, equal unlabored respirations, skin warm/dry/pink. Patient states feeling better. Vital Signs: 02:24 BP 162 / 90; Pulse 133; Resp 20; Temp 100.6(TE); Pulse Ox 97% ; Weight 81.65 kg; Height kl 5 ft. 0 in. ; Pain 9/10; 02:53 BP 153 / 74; Pulse 124; Resp 28; Temp 99.1(O); Pulse Ox 95% on R/A; lg3 03:47 BP 159 / 78; Pulse 129; Resp 24 S; Pulse Ox 97% on R/A; lg3 04:47 BP 131 / 69; Pulse 116; Resp 19 S; Pulse Ox 96% on R/A; lg3 05:59 BP 133 / 70; Pulse 103; Resp 19 S; Temp 98.9(O); Pulse Ox 97% on R/A; lg3 02:24 Body Mass Index 35.15 (81.65 kg, 152.4 cm) kl 02:24 Pain Scale: Adult ED Course: 02:10 Patient arrived in ED. mr 02:11 Perico Bridges, is Private Physician. mr 02:24 Demetri Gao MD is Attending Physician. [facility] 02:25 Triage completed. kl 02:28 Jessica Vega, ROCKY is Primary Nurse. lg3 02:53 Patient has correct armband on for positive identification. Placed in gown. Bed in low lg3 position. Call light in reach. Side rails up X 1. Client placed on continuous cardiac and pulse oximetry monitoring. NIBP monitoring applied. classroom monitor on. Door closed. Noise minimized. Family accompanied patient. 02:53 Arm band placed on right wrist. lg3 02:53 Inserted saline lock: 20 gauge in left forearm, using aseptic technique. lg3 02:56 Inserted saline lock: 20 gauge in right forearm, using aseptic technique. Blood lg3 collected. Patient maintains SpO2 saturation greater than 95% on room air. 02:56 SARS RAPID Sent. lg3 02:56 Flu Sent. lg3 02:56 Lipase Sent. lg3 02:56 Blood Culture Adult (2) Sent. lg3 02:56 Lactate w/ 2H reflex if indic. Sent. lg3 02:57 Basic Metabolic Panel Sent. lg3 02:57 CBC with Diff Sent. lg3 02:57 LFT's Sent. lg3 02:57 Magnesium Sent. lg3 02:57 NT PRO-BNP Sent. lg3 02:57 PT-INR Sent. lg3 02:57 Troponin HS Sent. lg3 03:22 XRAY Chest (1 view) In Process Unspecified. EDMS 05:19 Perico Bridges DO is Referral Physician. lennox 06:00 No provider procedures requiring assistance completed. IV discontinued, intact, lg3 bleeding controlled, No redness/swelling at site. Pressure dressing applied. Administered Medications: 03:14 Drug: NS 0.9% IV 1000 ml Route: IV; Rate: 1 bolus; Site: right forearm; lg3 05:26 Follow up: Response: No adverse reaction; IV Status: Completed infusion; IV Intake: lg3 1000ml 03:14 Drug: Acetaminophen PO 1000 mg Route: PO; lg3 05:26 Follow up: Response: No adverse reaction lg3 03:14 Drug: Rocephin IV 1 grams Route: IV; Rate: per protocol; Site: right forearm; lg3 05:26 Follow up: Response: No adverse reaction; IV Status: Completed infusion; IV Intake: [id number] 03:14 Drug: NS 0.9% IV 1000 ml Route: IV; Rate: 1 bolus; Site: right forearm; lg3 05:26 Follow up: IV Status: Completed infusion; IV Intake: 1000ml lg3 04:10 Drug: Oseltamivir PO 75 mg Route: PO; lg3 05:26 Follow up: Response: No adverse reaction lg3 04:10 Drug: AZITHromycin PO 500 mg Route: PO; lg3 05:26 Follow up: Response: No adverse reaction lg3 04:47 Drug: Ibuprofen PO 800 mg Route: PO; lg3 05:25 Follow up: Response: No adverse reaction lg3 04:47 Drug: NS 0.9% IV 1000 ml Route: IV; Rate: 1 bolus; Site: right forearm; lg3 06:00 Follow up: IV Status: Completed infusion; IV Intake: 1000ml lg3 Medication: 06:00 VIS not applicable for this client. lg3 Intake: 05:26 IV: 1000ml; Total: 1000ml. lg3 05:26 IV: 10ml; Total: 1010ml. lg3 05:26 IV: 1000ml; Total: 2010ml. lg3 06:00 IV: 1000ml; Total: 3010ml. lg3 Outcome: 05:21 Discharge ordered by . lennox 06:00 Discharged to home ambulatory, with significant other. lg3 06:00 Condition: stable 06:00 Discharge instructions given to patient, significant other, Instructed on discharge instructions, follow up and referral plans. medication usage, Demonstrated understanding of instructions, follow-up care, medications, Prescriptions given X 4. 06:01 Patient left the ED. lg3 Signatures: Dispatcher [employer] EDLaura Saini RN RN kl Anderson, Corey, MD MD cha Rivera Eileen Jessica Mota RN RN lg3
--- NOTE | 2022-12-10 05:21 | EDPHYS ---
Physician Documentation [facility] Name: Andrey Wells Age: 62 yrs Sex: Male : 1960 Arrival Date: 12/10/2022 Time: 02:08 Bed 13 Private MD: [facility] ED Physician Demetri Gao HPI: 12/10 05:02 This 62 yrs old Male presents to ER via Ambulatory with complaints of lennox Chills,cramping. 05:02 This 62 yrs old Male presents to ER via Ambulatory with complaints of lennox Chills,cramping. 05:02 The patient or guardian reports cough. Onset: The symptoms/episode began/occurred just lennox prior to arrival, this morning. Modifying factors: The symptoms are alleviated by nothing. the symptoms are aggravated by cold environment. FEVER, CHILLS. Associated signs and symptoms: Pertinent positives: fever, nausea, rhinorrhea, sore throat. The patient reports fever, that was measured at 101 degrees Fahrenheit. Modifying factors: there are no obvious modifying factors. Associated signs and symptoms: Pertinent positives: cough, decreased appetite, headache, myalgias. Historical: - Allergies: 02:25 No Known Allergies; kl - PMHx: 02:25 BACK; diabetes mellitus; Myocardial infarction; neuropathy; Hypertensive disorder; kl - PSHx: 02:25 back surgery; kl - Immunization history:: Adult Immunizations not up to date. - Social history:: Smoking status: Patient reports the use of cigarette tobacco products, denies chronic smoking, but will smoke occasionally. ROS: 05:02 Eyes: Negative for injury, pain, redness, and discharge, ENT: Negative for injury, lennox pain, and discharge, Neck: Negative for injury, pain, and swelling, Respiratory: Negative for shortness of breath, cough, wheezing, and pleuritic chest pain, Abdomen/GI: Negative for abdominal pain, nausea, vomiting, diarrhea, and constipation, Back: Negative for injury and pain, : Negative for injury, bleeding, discharge, and swelling, MS/Extremity: Negative for injury and deformity, Skin: Negative for injury, rash, and discoloration, Neuro: Negative for headache, weakness, numbness, tingling, and seizure, Psych: Negative for depression, anxiety, suicide ideation, homicidal ideation, and hallucinations, Allergy/Immunology: Negative for hives, rash, and allergies, Endocrine: Negative for neck swelling, polydipsia, polyuria, polyphagia, and marked weight changes, Hematologic/Lymphatic: Negative for swollen nodes, abnormal bleeding, and unusual bruising. 05:02 Constitutional: Positive for body aches, chills, fatigue, fever, malaise, poor PO intake. Exam: 05:02 Constitutional: This is a well developed, well nourished patient who is awake, alert, lennox and in no acute distress. Head/Face: Normocephalic, atraumatic. Eyes: Pupils equal round and reactive to light, extra-ocular motions intact. Lids and lashes normal. Conjunctiva and sclera are non-icteric and not injected. Cornea within normal limits. Periorbital areas with no swelling, redness, or edema. ENT: Nares patent. No nasal discharge, no septal abnormalities noted. Tympanic membranes are normal and external auditory canals are clear. Oropharynx with no redness, swelling, or masses, exudates, or evidence of obstruction, uvula midline. Mucous membranes moist. Neck: Trachea midline, no thyromegaly or masses palpated, and no cervical lymphadenopathy. Supple, full range of motion without nuchal rigidity, or vertebral point tenderness. No Meningismus. Chest/axilla: Normal chest wall appearance and motion. Nontender with no deformity. No lesions are appreciated. Respiratory: Lungs have equal breath sounds bilaterally, clear to auscultation and percussion. No rales, rhonchi or wheezes noted. No increased work of breathing, no retractions or nasal flaring. Abdomen/GI: Soft, non-tender, with normal bowel sounds. No distension or tympany. No guarding or rebound. No evidence of tenderness throughout. Back: No spinal tenderness. No costovertebral tenderness. Full range of motion. Male : Normal genitalia with no discharge or lesions. Skin: Warm, dry with normal turgor. Normal color with no rashes, no lesions, and no evidence of cellulitis. 05:02 Cardiovascular: Rate: tachycardic, actual rate is 116 bpm, Rhythm: regular, Pulses: Pulses are 4+ in bilateral radial, brachial, femoral, popliteal, posterior tibial and and dorsalis pedis arteries.. Heart sounds: normal, Edema: is not appreciated, JVD: is not appreciated. 05:02 ECG was reviewed by the Attending Physician. Vital Signs: 02:24 BP 162 / 90; Pulse 133; Resp 20; Temp 100.6(TE); Pulse Ox 97% ; Weight 81.65 kg; Height kl 5 ft. 0 in. ; Pain 9/10; 02:53 BP 153 / 74; Pulse 124; Resp 28; Temp 99.1(O); Pulse Ox 95% on R/A; lg3 03:47 BP 159 / 78; Pulse 129; Resp 24 S; Pulse Ox 97% on R/A; lg3 04:47 BP 131 / 69; Pulse 116; Resp 19 S; Pulse Ox 96% on R/A; lg3 05:59 BP 133 / 70; Pulse 103; Resp 19 S; Temp 98.9(O); Pulse Ox 97% on R/A; lg3 02:24 Body Mass Index 35.15 (81.65 kg, 152.4 cm) kl 02:24 Pain Scale: Adult kl MDM: 02:24 Patient medically screened. lennox 05:14 Differential diagnosis: obstructed airway, tracheal injury, bronchitis, flu, URI, viral lennox Infection, bacterial infection, URI, bronchitis, pneumonia UTI. Antibiotic administration: The patient is discharged and will get outpatient antibiotics, Zithromax. Differential Diagnosis altered mental status, sepsis, flu. Data reviewed: vital signs, nurses notes, lab test result(s), EKG, radiologic studies, plain films. Consideration of Admission/Observation Escalation of care including admission/observation considered. I considered the following discharge prescriptions or medication management in the emergency department Medications were administered in the Emergency Department. See MAR. Independent interpretation of the following test(s) in the Emergency Department X-Ray: My interpretation is CHEST XRAY. Test considered but Not performed: EKG: . CT: CT CHEST. Historians other than the Patient: Spouse/Significant Other: , INFORMED. Care significantly affected by the following chronic conditions: Diabetes, Hypertension, Obesity, BACK. Counseling: I had a detailed discussion with the patient and/or guardian regarding the historical points, exam findings, and any diagnostic results supporting the discharge/admit diagnosis, lab results, radiology results, the need for outpatient follow up, for definitive care, a family practitioner. 12/10 02:26 Order name: Basic Metabolic Panel; Complete Time: 03:54 [facility] 12/10 02:26 Order name: CBC with Diff; Complete Time: 03:54 12/10 02:26 Order name: LFT's; Complete Time: 03:54 lennox 12/10 02:26 Order name: Magnesium; Complete Time: 03:54 12/10 02:26 Order name: NT PRO-BNP; Complete Time: 03:54 lennox 12/10 02:26 Order name: PT-INR; Complete Time: 03:34 [facility] 12/10 02:26 Order name: Troponin HS; Complete Time: 03:54 [facility] 12/10 02:26 Order name: Blood Culture Adult (2) 12/10 02:26 Order name: Lactate w/ 2H reflex if indic.; Complete Time: 03:54 [facility] 12/10 02:26 Order name: Urinalysis w/ reflexes; Complete Time: 04:59 [facility] 12/10 02:26 Order name: Lipase; Complete Time: 03:54 [facility] 12/10 02:26 Order name: Flu; Complete Time: 03:54 [facility] 12/10 02:26 Order name: SARS RAPID; Complete Time: 03:34 [facility] 12/10 02:26 Order name: XRAY Chest (1 view) 12/10 02:26 Order name: EKG; Complete Time: 02:27 [facility] 12/10 02:26 Order name: Cardiac monitoring; Complete Time: 02:56 [facility] 12/10 02:26 Order name: EKG - Nurse/Tech; Complete Time: 02:56 [facility] 12/10 02:26 Order name: IV Saline Lock; Complete Time: 02:56 [facility] 12/10 02:26 Order name: Labs collected and sent; Complete Time: 02:56 [facility] 12/10 02:26 Order name: O2 Per Protocol; Complete Time: 02:56 [facility] 12/10 02:26 Order name: O2 Sat Monitoring; Complete Time: 02:56 [facility] EC:02 Rate is 131 beats/min. Rhythm is regular. QRS [place] is Normal. [place] interval is normal. [facility] QRS interval is normal. QT interval is normal. No Q waves. T waves are Normal. No ST changes noted. Clinical impression: Sinus tachycardia and No evidence of ischemia. Interpreted by me. Reviewed by me. Administered Medications: 03:14 Drug: NS 0.9% IV 1000 ml Route: IV; Rate: 1 bolus; Site: right forearm; lg3 05:26 Follow up: Response: No adverse reaction; IV Status: Completed infusion; IV Intake: lg3 1000ml 03:14 Drug: Acetaminophen PO 1000 mg Route: PO; lg3 05:26 Follow up: Response: No adverse reaction lg3 03:14 Drug: Rocephin IV 1 grams Route: IV; Rate: per protocol; Site: right forearm; lg3 05:26 Follow up: Response: No adverse reaction; IV Status: Completed infusion; IV Intake: [id number] 03:14 Drug: NS 0.9% IV 1000 ml Route: IV; Rate: 1 bolus; Site: right forearm; lg3 05:26 Follow up: IV Status: Completed infusion; IV Intake: 1000ml lg3 04:10 Drug: Oseltamivir PO 75 mg Route: PO; lg3 05:26 Follow up: Response: No adverse reaction lg3 04:10 Drug: AZITHromycin PO 500 mg Route: PO; lg3 05:26 Follow up: Response: No adverse reaction lg3 04:47 Drug: Ibuprofen PO 800 mg Route: PO; lg3 05:25 Follow up: Response: No adverse reaction lg3 04:47 Drug: NS 0.9% IV 1000 ml Route: IV; Rate: 1 bolus; Site: right forearm; lg3 06:00 Follow up: IV Status: Completed infusion; IV Intake: 1000ml lg3 Disposition Summary: 12/10/22 05:21 Discharge Ordered Location: Home [facility] Problem: new lennox Symptoms: have improved lennox Condition: Stable lennox Diagnosis - Acute upper respiratory infection, unspecified lennox - Influenza due to unidentified influenza virus with other manifestations - FLU B lennox - Fever, unspecified lennox Followup: lennox - With: Perico Bridges, DO - When: 2 - 3 days - Reason: Recheck today's complaints, Continuance of care, Re-evaluation by your physician Discharge Instructions: - Discharge Summary Sheet lennox - Fever, Adult lennox - Influenza, Adult lennox - Cool Mist Vaporizer lennox - Upper Respiratory Infection, Adult, [id number] lennox - Influenza, Adult, [id number] lennox - Cough, Adult [facility] Forms: - Medication Reconciliation Form [facility] - Thank You Letter lennox - Antibiotic Education lennox - Prescription Opioid Use lennox - Patient Portal Instructions [facility] - Leadership Thank You Letter [facility] Prescriptions: - ondansetron 4 mg Oral Tablet,disintegrating - take 1 tablet by ORAL route every 6-8 hours for 5 days; 20 tablet; Refills: 0, [facility] Product Selection Permitted - Tessalon Perles 100 mg Oral Capsule - take 2 capsule by ORAL route every 8 hours As needed; 40 capsule; Refills: 0, [facility] Product Selection Permitted - Tamiflu 75 mg Oral Capsule - take 1 tablet by ORAL route every 12 hours for 5 days; 10 tablet; Refills: 0, [facility] Product Selection Permitted - Zithromax 500 mg Oral Tablet - take 1 tablet by ORAL route once daily for 5 days; 5 tablet; Refills: 0, [facility] Product Selection Permitted Signatures: Dispatcher [employer] Laura Mcginnis, RN Demetri Geller MD MD cha Gibson, Lacie, RN RN lg3
[2022-12-10 06:29] VITALS: BP 133/70; TEMP 98.9; O2SAT 97
--- NOTE | 2022-12-10 13:11 | RAD REPORT ---
EXAM DESCRIPTION: RAD - Chest Single View - 12/10/2022 3:20 am CLINICAL HISTORY: 62 years Male, COUGH COMPARISON: Chest x-ray report from 10/16/2021. The image was unavailable for review. TECHNIQUE: Single portable x-ray view of the chest performed on 12/10/2022 at 3:13 AM FINDINGS: The lungs are well-expanded. There may be mild opacification of the left inferior hemithor ax possibly due to atelectasis. An inflammatory infiltrate is not entirely excluded. There is no evid ence of a pneumothorax. The cardiac silhouette is normal in size and configuration. The mediastinal contours are normal. No acute osseous abnormality is identified. No acute soft tissue abnormalities are seen. Lines and tubes: None. Free air: None IMPRESSION: 1. Mild opacification of the left inferior hemithorax possibly due to atelectasis. An inflammatory infiltrate is not entirely excluded. 2. Otherwise, the lungs are clear. Electronically signed by: Rosemary Boudreaux DO 12/10/2022 4:53 AM CDT Due to temporary technical issues with the PACS/Fluency reporting system, reports are being signed by the in house radiologists without review as a courtesy to insure prompt reporting. The interpreting radiologist is fully responsible for the content of the report.
--- NOTE | 2022-12-11 16:49 | EKG ---
Test Date: 2022-12-10 Test Time: 02:38:03 [employer]: [place] MEASUREMENT RESULTS: Intervals: Rate: 131 FL: 156 QRSD: 76 QT: 374 QTc: 552 [place]: P: 29 FL: 156 QRS: -22 T: 28 INTERPRETIVE STATEMENTS: Sinus tachycardia Nonspecific ST abnormality Abnormal ECG Compared to ECG 10/16/2021 17:25:32 ST (T wave) deviation now present Sinus rhythm no longer present Electronically Signed On 12-11-22 16:44:41 CDT by Andrew Plaza
== END 2022-12-10 06:01 | disposition home or self-care (01) ==
LOC: ER 02:08
DX: J10.1 Influenza due to other identified influenza virus with other respiratory manifestations (principal); F17.210 Nicotine dependence, cigarettes, uncomplicated; E11.9 Type 2 diabetes mellitus without complications; I10 Essential (primary) hypertension; Z20.822 Contact with and (suspected) exposure to COVID-19
CPT/HCPCS: 96365; 96361; 93005; 87040 ×2; 85025; 81001; 80048; 36415; 83735; 85610; 80076; 83605; 84484; 83690; 83880; 87804 ×2; 71045; 99285; 96366; 87811; J7030 ×2; J0696

== ENCOUNTER 2023-09-28 11:34 | Emergency (ER) | payer OTHER, SELFPAY ==
[2023-09-28 12:01] LABS: Absolute Basophils 0.1 K/uL (0-0.5); Absolute Eosinophils 0.2 K/uL (0-0.5); Absolute Monocytes 0.6 K/uL (0.1-1.3); Absolute Neutrophil 4.8 K/uL (1.8-8.0); Eosinophils % 1.8 % (0-4.4); Hematocrit 48.7 % (39.6-49.0); Hemoglobin 16.5 g/dL (13.6-17.9); Lymphocytes % 34.5 % (15.3-44.8); MCH 29.2 pg (27.0-35.0); MCHC 33.9 g/dL (32.0-36.0); MCV 86.1 fL (80-100); MPV 7.6 fL (7.6-11.3); Monocytes % 7.4 % (3.3-12.3); Neutrophils % 55.3 % (41.7-73.7); Platelets 293 thou/uL (152-406); RBC Red Blood Cell Count 5.66 M/uL (4.33-5.43); Red Cell Distribution Width 13.6 % (12.1-15.2)
[2023-09-28 12:23] LABS: Albumin 3.3 g/dL (3.4-5.0); Albumin/Globulin Ratio 0.7 (1.1-1.8); Anion Gap 10.6 mEq/L (5.0-15.0); Bilirubin Direct 0.2 mg/dL (0-0.2); Bilirubin Indirect, Calculated 0.5 mg/dL (0.2-0.8); Bilirubin Total 0.7 mg/dL (0.2-1.0); Globulin 4.6 g/dL (2.3-3.5); Magnesium 2.1 mg/dL (1.6-2.4); Potassium 3.6 mEq/L (3.5-5.1); Protein, Total 7.9 g/dL (6.4-8.2); Troponin High Sensitivity 5.2 pg/mL (<58.9)
--- NOTE | 2023-09-28 13:00 | RAD REPORT ---
EXAM DESCRIPTION: RADChest Single View09/28/2023 12:27 pm CLINICAL HISTORY: CHEST PAIN COMPARISON: Chest Single View dated 12/10/2022; Chest Single View dated 10/16/2021; Chest Single View d ated 08/02/2021; Chest Single View dated 11/18/2019 TECHNIQUE: Portable AP view of the chest. FINDINGS: No pneumothorax or effusion. The cardiomediastinal contours are unremarkable. Lungs are clear apart from bibasilar atelectatic changes. Decreased inspiratory effort limits evaluat ion. IMPRESSION: No acute cardiopulmonary process.
--- NOTE | 2023-09-28 13:41 | RAD REPORT ---
EXAM DESCRIPTION: CT - Head Brain Wo Cont - 09/28/2023 12:52 pm CLINICAL HISTORY: DIZZINESS COMPARISON: No comparisons TECHNIQUE: Noncontrast head CT images ad were obtained without IV contrast. Multiplanar reformats we re generated and reviewed. All CT scans are performed using dose optimization technique as appropriate and may include automated exposure control or mA/KV adjustment according to patient size. FINDINGS: No intracranial hemorrhage, mass, or edema. Midline structures are unremarkable. Normal ventricular caliber for age. Hernandez-white matter differentiation is preserved, without evidence of acute infarct. No abnormal extra- axial fluid collections. Mastoid air cells and visualized portions of the paranasal sinuses are clear. No acute bony findings. Patchy periventricular and deep white matter hypodensities, nonspecific, but suggestive of chronic sm all vessel ischemic changes. IMPRESSION: No evidence of an acute intracranial process. Nonspecific white matter hypodensities, s uggestive of chronic small vessel ischemic changes.
--- NOTE | 2023-09-28 15:02 | ER ---
Nurse's Notes [facility] Name: Andrey Wells Age: 63 yrs Sex: Male : 1960 Arrival Date: 09/28/2023 Time: 11:34 Bed 10 Private MD: Diagnosis: Dizziness and giddiness;Essential (primary) hypertension Presentation: 09/27 11:42 Chief complaint: Chief complaint: EMS states: N/V and dizziness since 1000. hb 11:42 Coronavirus screen: At this time, the client does not indicate any symptoms associated hb with coronavirus-19. Ebola Screen: No symptoms or risks identified at this time. Initial Sepsis Screen: Does the patient meet any 2 criteria? No. Patient's initial sepsis screen is negative. Does the patient have a suspected source of infection? No. Patient's initial sepsis screen is negative. Risk Assessment: Do you want to hurt yourself or someone else? Patient reports no desire to harm self or others. Onset of symptoms was September 28, 2023 at 10:00. 11:42 Method Of Arrival: EMS: [facility] hb 11:42 Acuity: KANDY 3 hb 12:00 Care prior to arrival: Medication(s) given: Phenergan, 25 mg, IV initiated. 20 GA, in hb the left forearm, Glucose check: 125. Triage Assessment: 12:01 General: Appears in no apparent distress. Behavior is calm, cooperative. Pain: Denies hb pain. Neuro: Level of Consciousness is awake, alert, obeys commands, Oriented to person, place, time, situation, Reports dizziness. Cardiovascular: Patient's skin is warm and dry. Respiratory: Respiratory effort is even, unlabored, Respiratory pattern is regular, symmetrical. GI: Reports nausea, vomiting. Historical: - Allergies: 11:58 No Known Allergies; hb - Home Meds: 11:58 None [Active]; hb - PMHx: 11:58 BACK; diabetes mellitus; Hypertensive disorder; Myocardial infarction; neuropathy; hb - PSHx: 11:58 back surgery; hb - Immunization history:: Adult Immunizations up to date. - Infectious Disease History:: Denies. - Social history:: Smoking status: Patient denies any tobacco usage or history of. Screenin:15 [facility] ED Fall Risk Assessment (Adult) History of falling in the last 3 months, ld1 including since admission No falls in past 3 months (0 pts) Confusion or Disorientation No (0 pts) Intoxicated or Sedated No (0 pts) Impaired Gait No (0 pts) Mobility Assist Device Used No (0 pt) Altered Elimination No (0 pt) Score/Fall Risk Level 0 - 2 = Low Risk. Abuse screen: Denies threats or abuse. Denies injuries from another. Nutritional screening: No deficits noted. Tuberculosis screening: No symptoms or risk factors identified. Assessment: 11:44 Reassessment: AMINATA Barth at bedside to evaluate pt. hb 15:15 General: Appears in no apparent distress. comfortable, Behavior is calm, cooperative, ld1 appropriate for age. Pain: Denies pain. Neuro: Level of Consciousness is awake, alert, obeys commands, Oriented to person, place, time, situation. Cardiovascular: Capillary refill < 3 seconds Patient's skin is warm and dry. Rhythm is sinus rhythm. Respiratory: Airway is patent Respiratory effort is even, unlabored. GI: Abdomen is round non-distended. : No signs and/or symptoms were reported regarding the genitourinary system. EENT: No signs and/or symptoms were reported regarding the EENT system. Derm: No signs and/or symptoms reported regarding the dermatologic system. Musculoskeletal: No signs and/or symptoms reported regarding the musculoskeletal system. Vital Signs: 11:42 BP 163 / 87; Pulse 76; Resp 18; Temp 98.2(TE); Pulse Ox 97% on R/A; Weight 81.65 kg; hb Height 5 ft. 1 in. ; Pain 0/10; 15:15 BP 149 / 72; Pulse 71; Resp 18; Pulse Ox 98% on R/A; ld1 11:42 Body Mass Index 34.01 (81.65 kg, 154.94 cm) hb 11:42 Pain Scale: Adult hb ED Course: 11:42 Patient arrived in ED. hb 11:46 Magaly Rubio PA-C is PHCP. sb4 11:46 Juan Antonio Bishop MD is Attending Physician. sb4 11:54 EKG done, by ED staff, reviewed by Magaly Rubio PA-C. hb 11:55 Maintain EMS IV. Dressing intact. Good blood return noted. Site clean \T\ dry. Gauge \T\ hb site: 20 LFA. 11:55 Initial lab(s) drawn, by me, sent to lab. hb 11:56 Melissa Vasquez, RN is Primary Nurse. ld1 11:58 Triage completed. hb 12:00 Arm band placed on. hb 12:04 LFT's Sent. hb 12:04 Magnesium Sent. hb 12:04 NT PRO-BNP Sent. hb 12:04 Troponin HS Sent. hb 12:29 XRAY Chest (1 view) In Process Unspecified. EDMS 12:53 Head Brain Wo Cont CT In Process Unspecified. EDMS 15:01 Andrew Plaza MD is Referral Physician. sb4 15:15 Patient has correct armband on for positive identification. Placed in gown. Bed in low ld1 position. Call light in reach. Side rails up X2. youth nutritional monitor on. Pulse ox on. NIBP on. Door closed. Noise minimized. Warm blanket given. 15:15 No provider procedures requiring assistance completed. IV discontinued, intact, ld1 bleeding controlled, No redness/swelling at site. Administered Medications: No medications were administered Medication: 15:15 VIS not applicable for this client. ld1 Outcome: 15:02 Discharge ordered by . sb4 15:15 Discharged to home ambulatory, with family, ld1 15:15 Condition: stable 15:15 Discharge instructions given to patient, family, Instructed on discharge instructions, follow up and referral plans. medication usage, Demonstrated understanding of instructions, follow-up care, medications, Prescriptions given X 4, 15:16 Patient left the ED. ld1 Signatures: Dispatcher [employer] EDMA Mackenzie Ordoñez RN RN Melissa Vasquez, RN RN ld1 Magaly Rubio PA-C PA-C sb4 Corrections: (The following items were deleted from the chart) 11:58 11:57 Chief complaint: hb hb 12:02 11:40 Reassessment: AMINATA Barth at bedside to evaluate pt. hb hb
--- NOTE | 2023-09-28 15:02 | EDPHYS ---
Physician Documentation [facility] Name: Andrey Wells Age: 63 yrs Sex: Male : 1960 Arrival Date: 09/28/2023 Time: 11:34 Bed 10 Private MD: ED Physician Juan Antonio Bishop HPI: 09/27 11:54 This 63 yrs old Male presents to ER via Unassigned with complaints of sb4 dizziness, weakness. 12:33 patient states he woke up feeling very dizzy and weak. he also endorses nausea but has sb4 not vomited. denies any chest pain or shortness of breath. states that he has been out of his medications for about 1 month now. he denies any focal weakness, changes in vision, numbness/tingling. Historical: - Allergies: 11:58 No Known Allergies; hb - Home Meds: 11:58 None [Active]; hb - PMHx: 11:58 BACK; diabetes mellitus; Hypertensive disorder; Myocardial infarction; neuropathy; hb - PSHx: 11:58 back surgery; hb - Immunization history:: Adult Immunizations up to date. - Infectious Disease History:: Denies. - Social history:: Smoking status: Patient denies any tobacco usage or history of. ROS: 12:33 Constitutional: Negative for fever, chills, and weight loss, sb4 12:33 Abdomen/GI: Positive for nausea, 12:33 Neuro: Positive for dizziness, weakness, 12:33 All other systems are negative, Exam: 12:37 Head/Face: Normocephalic, atraumatic. Eyes: Extra-ocular motions intact. Periorbital sb4 areas with no swelling, redness, or edema. ENT: Mucous membranes moist. Cardiovascular: Regular rate and rhythm with a normal S1 and S2. Respiratory: Lungs have equal breath sounds bilaterally, clear to auscultation and percussion. No rales, rhonchi or wheezes noted. No increased work of breathing, no retractions or nasal flaring. 12:37 Constitutional: The patient appears alert, awake, uncomfortable, 12:37 Abdomen/GI: Inspection: distension, that is mild, Palpation: abdomen is soft and non-tender, Vital Signs: 11:42 BP 163 / 87; Pulse 76; Resp 18; Temp 98.2(TE); Pulse Ox 97% on R/A; Weight 81.65 kg; hb Height 5 ft. 1 in. ; Pain 0/10; 15:15 BP 149 / 72; Pulse 71; Resp 18; Pulse Ox 98% on R/A; ld1 11:42 Body Mass Index 34.01 (81.65 kg, 154.94 cm) hb 11:42 Pain Scale: Adult hb MDM: 11:46 Patient medically screened. 4 15:01 Data reviewed: vital signs, nurses notes, EMS record, lab test result(s), EKG, sb4 radiologic studies, and as a result, I will discharge patient. Consideration of Admission/Observation Escalation of care including admission/observation considered. Counseling: I had a detailed discussion with the patient and/or guardian regarding the historical points, exam findings, and any diagnostic results supporting the discharge/admit diagnosis, the presence of at least one elevated blood pressure reading (>120/80) during this emergency department visit, lab results, radiology results, the need for outpatient follow up, a analytical lab technician, to return to the emergency department if symptoms worsen or persist or if there are any questions or concerns that arise at home. 09/27 11:49 Order name: Basic Metabolic Panel; Complete Time: 12:27 09/27 11:49 Order name: CBC with Diff; Complete Time: 12:05 09/27 11:49 Order name: LFT's; Complete Time: 12:27 09/27 11:49 Order name: Magnesium; Complete Time: 12:27 09/27 11:49 Order name: NT PRO-BNP; Complete Time: 12:27 09/27 11:49 Order name: Troponin HS; Complete Time: 12:27 09/27 14:12 Order name: Troponin High Sensitivity; Complete Time: 14:58 09/27 11:49 Order name: XRAY Chest (1 view); Complete Time: 13:08 09/27 12:27 Order name: Head Brain Wo Cont CT; Complete Time: 13:43 09/27 11:49 Order name: EKG; Complete Time: 11:50 09/27 11:49 Order name: Cardiac monitoring; Complete Time: 11:56 4 09/27 11:49 Order name: EKG - Nurse/Tech; Complete Time: 11:56 sb4 09/27 11:49 Order name: IV Saline Lock; Complete Time: sb4 09/27 11:49 Order name: Labs collected and sent; Complete Time: sb4 09/27 11:49 Order name: O2 Per Protocol; Complete Time: sb4 09/27 11:49 Order name: O2 Sat Monitoring; Complete Time: : sb4 EC:58 Rate is 69 beats/min. Rhythm is regular, Normal Sinus Rhythm. UT interval is normal at sb4 196 msec. QRS interval is normal at 92 msec. QT interval is prolonged at 432 msec. No Q waves. T waves are Normal. No ST changes noted. Interpreted by me. Reviewed by me. Administered Medications: No medications were administered Disposition: 15:55 Co-signature as Attending Physician, Juan Antonio Bishop MD I reviewed the patient's care rt provided by the Advanced Practice Provider and agree with the diagnosis and treatment plan. Disposition Summary: 09/28/23 15:02 Discharge Ordered Notes: Location: Home sb4 Problem: new sb4 Symptoms: are resolved sb4 Condition: Stable sb4 Diagnosis - Dizziness and giddiness sb4 - Essential (primary) hypertension sb4 Followup: sb4 - With: Andrew Plaza MD - When: 1 week - Reason: Further diagnostic work-up, Recheck today's complaints, Re-evaluation by your physician Discharge Instructions: - Discharge Summary Sheet sb4 - Dizziness sb4 - Hypertension, Adult sb4 Forms: - Patient Portal Instructions sb4 - Leadership Thank You Letter sb4 Prescriptions: - atorvastatin 40 mg Oral tablet - take 1 tablet ORAL route every evening; 20 tablet; Refills: 0, Product sb4 Selection Permitted - metformin 500 mg Oral tablet - take 1 tablet ORAL route 2 times per day; 40 tablet; Refills: 0, Product sb4 Selection Permitted - Metoprolol Tartrate 25 mg Oral tablet - take 1 tablet ORAL route 2 times per day with a meal; 40 tablet; Refills: 0, sb4 Product Selection Permitted - Lisinopril 10 mg Oral Tablet - take 1 tablet ORAL route once daily; 20 tablet; Refills: 0, Product Selection sb4 Permitted Signatures: Dispatcher [facility] EDDC Mackenzie Ordoñez RN RN hb Brown, Sophia, PA-C PADain sb4 Juan Antonio Bishop MD MD rt Corrections: (The following items were deleted from the chart) 11:50 11:50 BASIC METABOLIC PANEL+C.LAB.BRZ ordered. EDMS EDMS 11:50 11:50 CBC+H.LAB.BRZ ordered. EDMS EDMS 11:50 11:50 HEPATIC FUNCTION+C.LAB.BRZ ordered. EDMS EDMS 11:50 11:50 MAGNESIUM+C.LAB.BRZ ordered. EDMS EDMS 11:50 11:50 PROBNP+C.LAB.BRZ ordered. EDMS EDMS 11:50 11:50 Troponin High Sensitivity+C.LAB.BRZ ordered. EDMS EDMS 14:13 14:13 Troponin High Sensitivity+C.LAB.BRZ ordered. EDMS EDMS
[2023-09-28 15:42] VITALS: BP 149/72; TEMP 98.2; O2SAT 98
--- NOTE | 2023-09-29 13:29 | EKG ---
Test Date: 2023-09-28 Test Time: 11:54:08 Debeader: JAYDEN MEASUREMENT RESULTS: Intervals: Rate: 69 [place]: 196 QRSD: 92 QT: 432 QTc: 462 [place]: P: 30 [place]: 196 QRS: 0 T: 4 INTERPRETIVE STATEMENTS: Normal sinus rhythm Normal ECG Compared to ECG 12/10/2022 02:38:03 Sinus tachycardia no longer present ST (T wave) deviation no longer present Electronically Signed On 09-29-23 13:27:25 CDT by Andrew Plaza
== END 2023-09-28 15:16 | disposition home or self-care (01) ==
LOC: ER 11:34
DX: R42 Dizziness and giddiness (principal); I10 Essential (primary) hypertension; E11.9 Type 2 diabetes mellitus without complications; I25.2 Old myocardial infarction
CPT/HCPCS: 36415; 70450; 71045; 80048; 80076; 83735; 83880; 84484; 85025; 93005; 99284

== ENCOUNTER 2023-10-11 20:05 | Emergency (ER) | payer OTHER, SELFPAY ==
--- OUTSIDE RECORDS SUMMARY | 2023-10-11 20:08 | XMS REPORT | Continuity of Care Document ---
Author Name Unknown Address [address] [place] [address] [facility]connect Address [address] [place] [address] Care Team Providers Care Bi Report Developer Name Role Phone Perico Bridges Attending Clinician Unavailable Problems Condition Name Condition Details Condition Category Status Onset Date Resolution Date Last Treatment Date Treating Clinician Comments Source [id number] Body mass index [BMI] 33.0-33.9, adult Problem [facility] [id number] Coronary artery disease of [place] artery of [place] heart with stable angina pectoris Problem [facility] [id number] Mixed hyperlipid emia Problem [facility] [id number] Essential (primary) hypertensi on Problem [facility] [id number] Sleep apnea in adult Problem [facility] [id number] Type 2 diabetes mellitus with hyperglyce hellen, without long-term current use of insulin Problem [facility] [id number] Primary insomnia Problem [facility] [id number] Other obesity due to excess calories Problem [facility] Social History Social Habit Start Date Stop Date Quantity Comments Source History of Tobacco Use [facility] Sex Assigned At [facility] Smoking Status Start Date Stop Date Source Never Smoker [facility] Medications Ordered Medication Name Filled Medication Name Start Date Stop Date Current Medication? Ordering Clinician Indication Dosage Frequency Signature (SIG) Comments Components Source traZODone HCl 50 MG traZODone HCl 50 MG 11-14 00:00: 00 No 1{table t_at_be dtime} QD traZODone HCl 50 MG Lisinopril 10 MG Lisinopril 10 MG No 1{table t} QD Lisinopril 10 MG Metoprolol Tartrate 25 MG Metoprolol Tartrate 25 MG No 1{table t_with_ food} BID Metoprolol Tartrate 25 MG metFORMIN HCl 500 MG metFORMIN HCl 500 MG No 1{table t_with_ a_meal} BID metFORMIN HCl 500 MG Atorvastati n Calcium 40 MG Atorvastati n Calcium 40 MG No 1{table t} QD Atorvastat in Calcium 40 MG Vital Signs Vital Name Observation Time Observation Value Comments S arceliace height 2021-11-14 11:00:00 62.5 [in_i] Comm on [facility] weight 2021-11-14 11:00:00 188.8 [lb_av] Co mmon [facility] temperature 2021-11-14 11:00:00 97.0 [degF] Com mon [facility] bmi 2021-11-14 11:00:00 33.98 kg/m2 Comm on [facility] oximetry 2021-11-14 11:00:00 95 % Commo n [facility] respiratory rate 2021-11-14 11:00:00 16 /min Common [facility] blood pressure systolic 2021-11-14 11:00:00 125 mm[Hg] [facility] blood pressure diastolic 2021-11-14 11:00:00 60 mm[Hg] [facility] Encounters Start Date/Time End Date/Time Encounter Type Admission Type Attending Clinicians Care Facility Care Department Encounter ID Source 2022-03-12 07:48:02 Outpatient Cyrus [facility] [id number] [facility] 2022-03-07 09:42:03 Outpatient Cyrus [facility] [id number] [facility] 2021-11-14 10:27:04 Outpatient Perico Bridges [facility]LML[facility] [id number] [facility] 2023-10-03 00:00:00 2023-10-03 00:00:00 (TEL) [facility]LMLC [facility] [id number] [facility] 2022-05-09 00:00:00 2022-05-09 00:00:00 (TEL) [facility]LMLC ST[facility] [id number] [facility] 2022-05-02 00:00:00 2022-05-02 00:00:00 (TEL) [facility]LMLC ST[facility] [id number] [facility] 2021-11-16 00:00:00 2021-11-16 00:00:00 (TEL) [facility]LMLC ST[facility]C [id number] [facility] 2021-11-14 00:00:00 2021-11-14 00:00:00 OFFICE VISIT NEW PT LEVEL 3 [facility]LMLC STLMLC [id number] [facility]
--- NOTE | 2023-10-11 21:55 | EDPHYS ---
Physician Documentation [facility] Name: Andrey Wells Age: 63 yrs Sex: Male : 1960 Arrival Date: 10/11/2023 Time: 20:05 Bed 25 Private MD: ED Physician Demetri Gao HPI: 10/10 21:46 This 63 yrs old Male presents to ER via Ambulatory with complaints of lennox Dizziness - shakiness, Medication Refill. 21:46 The patient presents with dizziness. Onset: The symptoms/episode began/occurred 1 lennox day(s) ago. Context: occurred at home, occurred while the patient was needs meds refilled. Modifying factors: The symptoms are alleviated by nothing, the symptoms are aggravated by nothing. Associated signs and symptoms: The patient has no apparent associated signs or symptoms. Patient's baseline: Neuro: alert and fully oriented. The patient has experienced similar episodes in the past, multiple times. Historical: - Allergies: 20:20 No Known Allergies; al5 - PMHx: 20:20 BACK; diabetes mellitus; Hypertensive disorder; Myocardial infarction; neuropathy; al5 - PSHx: 20:20 back surgery; al5 - Immunization history:: Adult Immunizations up to date. - Infectious Disease History:: Denies. - Social history:: Smoking status: Patient reports the use of cigarette tobacco products, denies chronic smoking, but will smoke occasionally. - Family history:: not pertinent. ROS: 21:46 Constitutional: Negative for fever, chills, and weight loss, Eyes: Negative for injury, lennox pain, redness, and discharge, ENT: Negative for injury, pain, and discharge, Neck: Negative for injury, pain, and swelling, Cardiovascular: Negative for chest pain, palpitations, and edema, Respiratory: Negative for shortness of breath, cough, wheezing, and pleuritic chest pain, Abdomen/GI: Negative for abdominal pain, nausea, vomiting, diarrhea, and constipation, Back: Negative for injury and pain, : Negative for injury, bleeding, discharge, and swelling, MS/Extremity: Negative for injury and deformity, Skin: Negative for injury, rash, and discoloration, Neuro: Negative for headache, weakness, numbness, tingling, and seizure, Psych: Negative for depression, anxiety, suicide ideation, homicidal ideation, and hallucinations, Allergy/Immunology: Negative for hives, rash, and allergies, Endocrine: Negative for neck swelling, polydipsia, polyuria, polyphagia, and marked weight changes, Hematologic/Lymphatic: Negative for swollen nodes, abnormal bleeding, and unusual bruising, Exam: 21:46 Constitutional: This is a well developed, well nourished patient who is awake, alert, lennox and in no acute distress. Head/Face: Normocephalic, atraumatic. Eyes: Pupils equal round and reactive to light, extra-ocular motions intact. Lids and lashes normal. Conjunctiva and sclera are non-icteric and not injected. Cornea within normal limits. Periorbital areas with no swelling, redness, or edema. ENT: Nares patent. No nasal discharge, no septal abnormalities noted. Tympanic membranes are normal and external auditory canals are clear. Oropharynx with no redness, swelling, or masses, exudates, or evidence of obstruction, uvula midline. Mucous membranes moist. Neck: Trachea midline, no thyromegaly or masses palpated, and no cervical lymphadenopathy. Supple, full range of motion without nuchal rigidity, or vertebral point tenderness. No Meningismus. Chest/axilla: Normal chest wall appearance and motion. Nontender with no deformity. No lesions are appreciated. Cardiovascular: Regular rate and rhythm with a normal S1 and S2. No gallops, murmurs, or rubs. Normal PMI, no JVD. No pulse deficits. Respiratory: Lungs have equal breath sounds bilaterally, clear to auscultation and percussion. No rales, rhonchi or wheezes noted. No increased work of breathing, no retractions or nasal flaring. Abdomen/GI: Soft, non-tender, with normal bowel sounds. No distension or tympany. No guarding or rebound. No evidence of tenderness throughout. Back: No spinal tenderness. No costovertebral tenderness. Full range of motion. Male : Normal genitalia with no discharge or lesions. Skin: Warm, dry with normal turgor. Normal color with no rashes, no lesions, and no evidence of cellulitis. MS/ Extremity: Pulses equal, no cyanosis. Neurovascular intact. Full, normal range of motion. Neuro: Awake and alert, GCS 15, oriented to person, place, time, and situation. Cranial nerves II-XII grossly intact. Motor strength 5/5 in all extremities. Sensory grossly intact. Cerebellar exam normal. Normal gait. Psych: Awake, alert, with orientation to person, place and time. Behavior, mood, and affect are within normal limits. Vital Signs: 20:12 BP 124 / 76; Pulse 77; Resp 18; Temp 97.3(TE); Pulse Ox 96% on R/A; Weight 81.65 kg; al5 Height 5 ft. 0 in. ; Pain 0/10; 20:12 Body Mass Index 35.15 (81.65 kg, 152.4 cm) al5 20:12 Pain Scale: Adult al5 MDM: 20:13 Patient medically screened. lennox 21:50 Differential diagnosis: generalized weakness. Data reviewed: vital signs, nurses notes. lennox Consideration of Admission/Observation Escalation of care including admission/observation considered. I considered the following discharge prescriptions or medication management in the emergency department Medications were administered in the Emergency Department. See MAR. Independent interpretation of the following test(s) in the Emergency Department EKG: See my EKG interpretation above. Test considered but Not performed: Labs: no labs. Care significantly affected by the following chronic conditions: Diabetes, Hypertension, Obesity, mi, neuropathy. Administered Medications: No medications were administered Disposition Summary: 10/11/23 21:54 Discharge Ordered Notes: Location: Home lennox Problem: new lennox Symptoms: have improved lennox Condition: Stable lennox Diagnosis - Dizziness and giddiness lennox - Type 2 diabetes mellitus with hyperglycemia lennox - Essential (primary) hypertension lennox - Obesity, unspecified lennox Followup: lennox - With: Private Physician - When: 2 - 3 days - Reason: Recheck today's complaints, Continuance of care, Re-evaluation by your physician Followup: lennox - With: Andrew Plaza MD - When: 2 - 3 days - Reason: Recheck today's complaints, Continuance of care, Re-evaluation by your physician Discharge Instructions: - Discharge Summary Sheet lennox - Dizziness lennox - Hyperglycemia lennox - Hypertension, Adult lennox - Hypertension, Adult, Tydi-ds-Atpm lennox - Diabetes Mellitus and Nutrition, Adult lennox - How to Take Your Blood Pressure, Byrd-pa-Tzpt lennox - Dizziness, Jabw-na-Eero lennox - Managing Your Hypertension lennox Forms: - Medication Reconciliation Form lennox - Antibiotic Education lennox - Prescription Opioid Use lennox - Patient Portal Instructions lennox - Leadership Thank You Letter lennox Prescriptions: - Lipitor 40 mg Oral tablet - take 1 tablet ORAL route once; 20 tablet; Refills: 0, Product Selection [facility] Permitted - Metformin 500 mg Oral tablet - take 1 tablet ORAL route once daily for 21 days Then take 1 tablet with morning lennox meals AND evening meals; 42 tablet; Refills: 0, Product Selection Permitted - Metoprolol Tartrate 25 mg Oral tablet - take 1 tablet ORAL route 2 times per day with a meal; 40 tablet; Refills: 0, [facility] Product Selection Permitted - Lisinopril 10 mg Oral Tablet - take 1 tablet ORAL route once daily; 20 tablet; Refills: 0, Product Selection [facility] Permitted Signatures: Demetri Gao MD MD cha Langhorst, Amanda, RN RN al5
--- NOTE | 2023-10-11 21:55 | ER ---
Nurse's Notes [facility] Name: Andrey Wells Age: 63 yrs Sex: Male : 1960 Arrival Date: 10/11/2023 Time: 20:05 Bed 25 Private MD: Diagnosis: Dizziness and giddiness;Type 2 diabetes mellitus with hyperglycemia;Essential (primary) hypertension;Obesity, unspecified Presentation: 10/10 20:12 Chief complaint: Patient states: shaking and dizziness since 1400 today. Ran out of all al5 of his medications and needs them refilled. Last time patient took his medications was this morning, states it was his last dose. Coronavirus screen: At this time, the client does not indicate any symptoms associated with coronavirus-19. Ebola Screen: No symptoms or risks identified at this time. Initial Sepsis Screen: Does the patient meet any 2 criteria? No. Patient's initial sepsis screen is negative. Does the patient have a suspected source of infection? No. Patient's initial sepsis screen is negative. Risk Assessment: Do you want to hurt yourself or someone else? Patient reports no desire to harm self or others. Onset of symptoms was October 11, 2023 at 14:00. 20:12 Method Of Arrival: Ambulatory al5 20:12 Acuity: KANDY 4 al5 Triage Assessment: 20:21 General: Appears in no apparent distress. shaky. Behavior is calm, cooperative. Pain: al5 Denies pain. Neuro: No deficits noted. Level of Consciousness is awake, alert, obeys commands, Oriented to person, place, time, situation, Speech is normal, Facial symmetry appears normal. Cardiovascular: No deficits noted. Capillary refill < 3 seconds Patient's skin is warm and dry. Respiratory: No deficits noted. Airway is patent Trachea midline Respiratory effort is even, unlabored, Respiratory pattern is regular, symmetrical. GI: No deficits noted. No signs and/or symptoms were reported involving the gastrointestinal system. : No deficits noted. No signs and/or symptoms were reported regarding the genitourinary system. Derm: No deficits noted. No signs and/or symptoms reported regarding the dermatologic system. Skin is intact, Skin is pink, warm \T\ dry. normal. Musculoskeletal: No deficits noted. No signs and/or symptoms reported regarding the musculoskeletal system. Historical: - Allergies: 20:20 No Known Allergies; al5 - PMHx: 20:20 BACK; diabetes mellitus; Hypertensive disorder; Myocardial infarction; neuropathy; al5 - PSHx: 20:20 back surgery; al5 - Immunization history:: Adult Immunizations up to date. - Infectious Disease History:: Denies. - Social history:: Smoking status: Patient reports the use of cigarette tobacco products, denies chronic smoking, but will smoke occasionally. - Family history:: not pertinent. Screenin:24 [facility] ED Fall Risk Assessment (Adult) History of falling in the last 3 months, vc1 including since admission No falls in past 3 months (0 pts) Confusion or Disorientation No (0 pts) Intoxicated or Sedated No (0 pts) Impaired Gait No (0 pts) Mobility Assist Device Used No (0 pt) Altered Elimination No (0 pt) Score/Fall Risk Level 0 - 2 = Low Risk Oriented to surroundings, Maintained a safe environment, Educated pt \T\ family on fall prevention, incl call for assistance when getting out of bed. Abuse screen: Denies threats or abuse. Nutritional screening: No deficits noted. Tuberculosis screening: No symptoms or risk factors identified. Assessment: 22:25 General: Appears in no apparent distress. comfortable, Behavior is calm, cooperative, vc1 appropriate for age. Pain: Denies pain. Neuro: Level of Consciousness is awake, alert, obeys commands, Oriented to person, place, time, situation, Appropriate for age Reports dizziness. Cardiovascular: Heart tones S1 S2 Capillary refill < 3 seconds. Respiratory: Airway is patent Respiratory effort is even, unlabored, Respiratory pattern is regular, symmetrical, Breath sounds are clear bilaterally. GI: Abdomen is round non-distended. : No deficits noted. No signs and/or symptoms were reported regarding the genitourinary system. EENT: No deficits noted. No signs and/or symptoms were reported regarding the EENT system. Derm: Skin is intact, is healthy with good turgor, Skin is dry, Skin is normal, Skin temperature is warm. Vital Signs: 20:12 BP 124 / 76; Pulse 77; Resp 18; Temp 97.3(TE); Pulse Ox 96% on R/A; Weight 81.65 kg; al5 Height 5 ft. 0 in. ; Pain 0/10; 20:12 Body Mass Index 35.15 (81.65 kg, 152.4 cm) al5 20:12 Pain Scale: Adult al5 ED Course: 20:11 Patient arrived in ED. mg5 20:13 Demetri Gao MD is Attending Physician. [facility] 20:20 Triage completed. al5 20:22 Arm band placed on left wrist. Patient placed in an exam room, on a stretcher. al5 21:54 Andrew Plaza MD is Referral Physician. [facility] 22:24 No provider procedures requiring assistance completed. Patient did not have IV access vc1 during this emergency room visit. Administered Medications: No medications were administered Medication: 22:24 VIS not applicable for this client. vc1 Outcome: 21:54 Discharge ordered by . [facility] 22:24 Discharged to home ambulatory, with significant other, vc1 22:24 Condition: good 22:24 Discharge instructions given to patient, Instructed on discharge instructions, follow up and referral plans. medication usage, Demonstrated understanding of instructions, follow-up care, medications, Prescriptions given X 4, 22:26 Patient left the ED. vc1 Signatures: Demetri Gao MD MD [facility] Brittany Sepulveda RN RN vc1 Christine Baird 5 Marilee Jordan RN RN al5
[2023-10-11 22:57] VITALS: BP 124/76; TEMP 97.3; O2SAT 96
== END 2023-10-11 22:26 | disposition home or self-care (01) ==
LOC: ER 20:05
DX: E11.65 Type 2 diabetes mellitus with hyperglycemia (principal); I10 Essential (primary) hypertension; E66.9 Obesity, unspecified; Z68.35 Body mass index [BMI] 35.0-35.9, adult
CPT/HCPCS: 99283

== ENCOUNTER 2024-01-08 10:54 | Emergency (ER) | payer OTHER, SELFPAY ==
--- OUTSIDE RECORDS SUMMARY | 2024-01-08 10:57 | XMS REPORT | Continuity of Care Document ---
Author Name Unknown Address [address] [place] [address] [facility] thconnect Address [address] [place] [address] Care Team Providers Care Ict Security Specialist Name Role Phone Perico Bridges Attending Clinician Unavailable Problems Condition Name Condition Details Condition Category Status Onset Date Resolution Date Last Treatment Date Treating Clinician Comments Source [id number] Body mass index [BMI] 33.0-33.9, adult Problem [facility] [id number] Coronary artery disease of [place] artery of [place] heart with stable angina pectoris Problem [facility] [id number] Mixed hyperlipid emia Problem [facility] [id number] Essential (primary) hypertensi on Problem [facility] [id number] Sleep apnea in adult Problem [facility] [id number] Type 2 diabetes mellitus with hyperglyce hellen, without long-term current use of insulin Problem [facility] [id number] Primary insomnia Problem [facility] [id number] Other obesity due to excess calories Problem [facility] Social History Social Habit Start Date Stop Date Quantity Comments Source History of Tobacco Use [facility] Sex Assigned At [facility] Smoking Status Start Date Stop Date Source Never Smoker [facility] Medications Ordered Medication Name Filled Medication [...] height 2021-11-14 11:00:00 62.5 [in_i] Comm on [facility] [place] [facility] weight 2021-11-14 11:00:00 188.8 [lb_av] Co mmon [facility] [place] [facility] temperature 2021-11-14 11:00:00 97.0 [degF] Com mon [facility] [place] [facility] bmi 2021-11-14 11:00:00 33.98 kg/m2 Comm on [facility] [place] [facility] oximetry 2021-11-14 11:00:00 95 % Commo n [facility] [place] [facility] respiratory rate 2021-11-14 11:00:00 16 /min Common [facility] [place] [facility] blood pressure systolic 2021-11-14 11:00:00 125 mm[Hg] [facility] blood pressure diastolic 2021-11-14 11:00:00 60 mm[Hg] [facility] Encounters Start Date/Time End Date/Time Encounter Type Admission Type Attending Clinicians Care Facility Care Department Encounter ID Source 2022-03-12 07:48:02 Outpatient [facility] [id number] [facility] 2022-03-07 09:42:03 Outpatient [facility] [id number] [facility] 2021-11-14 10:27:04 Outpatient Perico Bridges [facility] ST[facility] [id number] [facility] 2023-10-03 00:00:00 2023-10-03 00:00:00 (TEL) ST[facility] ST[facility] [id number] [facility] 2022-05-09 00:00:00 2022-05-09 00:00:00 (TEL) [facility] ST[facility] [id number] [facility] 2022-05-02 00:00:00 2022-05-02 00:00:00 (TEL) [facility]MLC ST[facility] [id number] [facility] 2021-11-16 00:00:00 2021-11-16 00:00:00 (TEL) [facility]MLC ST[facility] [id number] [facility] 2021-11-14 00:00:00 2021-11-14 00:00:00 OFFICE VISIT NEW PT LEVEL 3 STLMLC STLMLC [id number] [facility]
[2024-01-08 11:49] LABS: Absolute Basophils 0.1 K/uL (0-0.5); Absolute Eosinophils 0.2 K/uL (0-0.5); Absolute Neutrophil 6.4 K/uL (1.8-8.0); Basophils % 0.8 % (0-1.3); Eosinophils % 1.7 % (0-4.4); Hematocrit 41.9 % (39.6-49.0); Hemoglobin 14.3 g/dL (13.6-17.9); MCH 29.6 pg (27.0-35.0); MCHC 34.2 g/dL (32.0-36.0); MCV 86.5 fL (80-100); MPV 7.8 fL (7.6-11.3); Monocytes % 8.6 % (3.3-12.3); Neutrophils % 54.9 % (41.7-73.7); Platelets 280 thou/uL (152-406); RBC Red Blood Cell Count 4.84 M/uL (4.33-5.43); Red Cell Distribution Width 13.4 % (12.1-15.2)
[2024-01-08 11:54] LABS: PT Prothrombin Time 11.7 SECONDS (9.4-12.5); Protime INR 1.05
[2024-01-08 12:08] LABS: Albumin 3.4 g/dL (3.4-5.0); Albumin/Globulin Ratio 0.8 (1.1-1.8); Anion Gap 9.4 mEq/L (5.0-15.0); Bilirubin Direct 0.2 mg/dL (0-0.2); Bilirubin Indirect, Calculated 0.3 mg/dL (0.2-0.8); Bilirubin Total 0.5 mg/dL (0.2-1.0); Globulin 4.4 g/dL (2.3-3.5); Magnesium 1.6 mg/dL (1.6-2.4); Potassium 3.4 mEq/L (3.5-5.1); Protein, Total 7.8 g/dL (6.4-8.2); Troponin High Sensitivity 5.4 pg/mL (<58.9)
--- NOTE | 2024-01-08 12:24 | RAD REPORT ---
EXAMINATION: ONE VIEW CHEST XR CLINICAL INDICATION: Male, 63 years old.COUGH TECHNIQUE: 1 View, AP supine, X-ray of the chest was performed. [id number]. COMPARISON: 09/28/2023 FINDINGS: Lungs and pleura: Clear lungs. No effusion. Low lung volumes. Heart and mediastinum: Similar size and configuration. Unremarkable mediastinal contours. Osseous structures: No acute abnormality. Tubes/lines: None Other: None. IMPRESSION: No acute intrathoracic abnormality.
--- NOTE | 2024-01-08 12:54 | EKG ---
Test Date: 2024-01-08 Test Time: 11:10:56 Ict Sales Assistant: JOHANNA MEASUREMENT RESULTS: Intervals: Rate: 98 WI: 174 QRSD: 82 QT: 366 QTc: 467 [place]: P: 35 WI: 174 QRS: -1 T: 15 INTERPRETIVE STATEMENTS: Normal sinus rhythm Normal ECG Compared to ECG 09/28/2023 11:54:08 No significant changes Electronically Signed On 01-08-24 12:53:44 CDT by Alejandro Mari
--- NOTE | 2024-01-08 13:50 | ER ---
Nurse's Notes [facility] Name: Andrey Wells Age: 63 yrs Sex: Male : 1960 Arrival Date: 01/08/2024 Time: 10:54 Bed 5 Private MD: Diagnosis: Type 2 diabetes mellitus with hyperglycemia;Obesity, unspecified;Essential (primary) hypertension;Hyperlipidemia, unspecified Presentation: 01/07 11:00 Chief complaint: Patient states: feel nauseous and dizzy on and off. I ran out of my tm6 medications 2 days ago, so I think it's because of that. I take lisinopril, atorvastatin, metoprolol, and metformin. I can't afford a doctor to get them refilled. Coronavirus screen: Vaccine status:. Ebola Screen: Patient negative for fever greater than or equal to 101.5 degrees Fahrenheit, and additional compatible Ebola Virus Disease symptoms Patient denies exposure to infectious person. Patient denies travel to an Ebola-affected area in the 21 days before illness onset. No symptoms or risks identified at this time. Initial Sepsis Screen: Does the patient meet any 2 criteria? HR > 90 bpm. Does the patient have a suspected source of infection? No. Patient's initial sepsis screen is negative. Risk Assessment: Do you want to hurt yourself or someone else? Patient reports no desire to harm self or others. Onset of symptoms was January 06, 2024. 11:00 Method Of Arrival: Ambulatory tm6 11:00 Acuity: KANDY 3 tm6 Triage Assessment: 11:02 General: Appears in no apparent distress. Behavior is anxious. Pain: Denies pain. EENT: tm6 No signs and/or symptoms were reported regarding the EENT system. Neuro: Level of Consciousness is awake, alert, obeys commands, Oriented to person, place, time, situation, Reports dizziness, since two days ago, on and off. Cardiovascular: Patient's skin is warm and dry. Respiratory: Airway is patent Respiratory effort is even, unlabored, Respiratory pattern is regular, symmetrical. GI: Abdomen is round non-distended, Reports nausea, vomiting, since two days ago. : No signs and/or symptoms were reported regarding the genitourinary system. Derm: No signs and/or symptoms reported regarding the dermatologic system. Musculoskeletal: No signs and/or symptoms reported regarding the musculoskeletal system. Historical: - Allergies: 11:02 No Known Allergies; tm6 - PMHx: 11:02 BACK; diabetes mellitus; Hypertensive disorder; Myocardial infarction; neuropathy; tm6 - PSHx: 11:02 back surgery; tm6 - Immunization history:: Client reports receiving the 2nd dose of the Covid vaccine. - Infectious Disease History:: Denies. - Social history:: Smoking status: Patient denies any tobacco usage or history of. Patient/guardian denies using alcohol. - Family history:: not pertinent. Screenin:14 [facility] ED Fall Risk Assessment (Adult) History of falling in the last 3 months, bp including since admission No falls in past 3 months (0 pts) Confusion or Disorientation No (0 pts) Intoxicated or Sedated No (0 pts) Impaired Gait No (0 pts) Mobility Assist Device Used No (0 pt) Altered Elimination No (0 pt) Score/Fall Risk Level 0 - 2 = Low Risk. Abuse screen: Denies threats or abuse. Denies injuries from another. Nutritional screening: No deficits noted. Tuberculosis screening: No symptoms or risk factors identified. Assessment: 11:05 General: Appears in no apparent distress. Behavior is calm, cooperative, appropriate bp for age. 12:11 Reassessment: Patient appears in no apparent distress at this time. Patient is alert, bp oriented x 3, equal unlabored respirations, skin warm/dry/pink. Vital Signs: 11:00 BP 153 / 97; Pulse 97; Resp 22; Temp 97.8(O); Pulse Ox 98% on R/A; MAP 114 mmHg; Weight tm6 79.38 kg; Height 5 ft. 1 in. ; Pain 0/10; 14:00 BP 149 / 85; Pulse 85; Resp 16; Pulse Ox 97% ; bp 11:00 Body Mass Index 33.07 (79.38 kg, 154.94 cm) tm6 11:00 Pain Scale: Adult tm6 ED Course: 10:57 Patient arrived in ED. ra3 10:59 Demetri Gao MD is Attending Physician. [facility] 11:02 Triage completed. tm6 11:02 Arm band placed on left wrist. tm6 11:12 EKG done, by ED staff, reviewed by Demetri Gao MD. tm6 11:14 Patient placed in an exam room, on a stretcher. ll1 11:16 Treva Colmenares, RN is Primary Nurse. ph 12:08 XRAY Chest (1 view) In Process Unspecified. EDMS 12:14 Patient has correct armband on for positive identification. bp 12:14 Inserted saline lock: 20 gauge in right antecubital area, using aseptic technique. bp Blood collected. Flushed with 10 mL NS. 13:47 Juan Francisco Rodriguez DO is Referral Physician. [facility] 14:12 No provider procedures requiring assistance completed. IV discontinued, intact, bp bleeding controlled, No redness/swelling at site. Pressure dressing applied. Administered Medications: 11:42 Drug: NS 0.9% IV 500 ml IV at bolus once Route: IV; Rate: bolus; Site: right bp antecubital; 14:10 Follow up: IV Status: Completed infusion; IV Intake: 500ml bp 14:00 Drug: Potassium PO Effervescent Tablet 25 mEq PO once; dissolve in 4 ounces of water or bp juice Route: PO; 14:10 Follow up: Response: No adverse reaction bp Point of Care Testing: Blood Glucose: 11:06 Blood Glucose: 145 mg/dL; tm6 Ranges: Intake: 14:10 IV: 500ml; Total: 500ml. bp Outcome: 13:49 Discharge ordered by . lennox 14:12 Discharged to home ambulatory, bp 14:12 Condition: stable 14:12 Discharge instructions given to patient, Instructed on discharge instructions, follow up and referral plans. medication usage, Demonstrated understanding of instructions, follow-up care, medications, 14:12 Patient left the ED. bp 15:14 Patient left the ED. bd Signatures: Dispatcher [employer] EDRI Gini Saldivar Corey, MD MD cha Hall, Patricia, RN RN Miguel Jones RN RN Angelito Dasilva RN RN ll1 Alexandro Daniel RN RN [facility] Annabelle Snyder 3
--- NOTE | 2024-01-08 13:50 | EDPHYS ---
Physician Documentation [facility] Name: Andrey Wells Age: 63 yrs Sex: Male : 1960 Arrival Date: 01/08/2024 Time: 10:54 Bed 5 Private MD: ED Physician Demetri Gao HPI: 01/07 13:42 This 63 yrs old Male presents to ER via Ambulatory with complaints of lennox Medication Refill, Nausea, Dizziness. 13:42 The patient presents to the emergency department requesting refill(s) for: lisinopril, lennox lipitor, metoprolol, metformin. Historical: - Allergies: 11:02 No Known Allergies; tm6 - PMHx: 11:02 BACK; diabetes mellitus; Hypertensive disorder; Myocardial infarction; neuropathy; tm6 - PSHx: 11:02 back surgery; tm6 - Immunization history:: Client reports receiving the 2nd dose of the Covid vaccine. - Infectious Disease History:: Denies. - Social history:: Smoking status: Patient denies any tobacco usage or history of. Patient/guardian denies using alcohol. - Family history:: not pertinent. ROS: 13:42 Constitutional: Negative for fever, chills, and weight loss, Eyes: Negative for injury, lennox pain, redness, and discharge, ENT: Negative for injury, pain, and discharge, Neck: Negative for injury, pain, and swelling, Cardiovascular: Negative for chest pain, palpitations, and edema, Respiratory: Negative for shortness of breath, cough, wheezing, and pleuritic chest pain, Abdomen/GI: Negative for abdominal pain, nausea, vomiting, diarrhea, and constipation, Back: Negative for injury and pain, : Negative for injury, bleeding, discharge, and swelling, MS/Extremity: Negative for injury and deformity, Skin: Negative for injury, rash, and discoloration, Neuro: Negative for headache, weakness, numbness, tingling, and seizure, Psych: Negative for depression, anxiety, suicide ideation, homicidal ideation, and hallucinations, Allergy/Immunology: Negative for hives, rash, and allergies, Endocrine: Negative for neck swelling, polydipsia, polyuria, polyphagia, and marked weight changes, Hematologic/Lymphatic: Negative for swollen nodes, abnormal bleeding, and unusual bruising, Exam: 13:42 Constitutional: This is a well developed, well nourished patient who is awake, alert, lennox and in no acute distress. Head/Face: Normocephalic, atraumatic. Eyes: Pupils equal round and reactive to light, extra-ocular motions intact. Lids and lashes normal. Conjunctiva and sclera are non-icteric and not injected. Cornea within normal limits. Periorbital areas with no swelling, redness, or edema. ENT: Nares patent. No nasal discharge, no septal abnormalities noted. Tympanic membranes are normal and external auditory canals are clear. Oropharynx with no redness, swelling, or masses, exudates, or evidence of obstruction, uvula midline. Mucous membranes moist. Neck: Trachea midline, no thyromegaly or masses palpated, and no cervical lymphadenopathy. Supple, full range of motion without nuchal rigidity, or vertebral point tenderness. No Meningismus. Chest/axilla: Normal chest wall appearance and motion. Nontender with no deformity. No lesions are appreciated. Cardiovascular: Regular rate and rhythm with a normal S1 and S2. No gallops, murmurs, or rubs. Normal PMI, no JVD. No pulse deficits. Respiratory: Lungs have equal breath sounds bilaterally, clear to auscultation and percussion. No rales, rhonchi or wheezes noted. No increased work of breathing, no retractions or nasal flaring. Abdomen/GI: Soft, non-tender, with normal bowel sounds. No distension or tympany. No guarding or rebound. No evidence of tenderness throughout. Back: No spinal tenderness. No costovertebral tenderness. Full range of motion. Male : Normal genitalia with no discharge or lesions. Skin: Warm, dry with normal turgor. Normal color with no rashes, no lesions, and no evidence of cellulitis. MS/ Extremity: Pulses equal, no cyanosis. Neurovascular intact. Full, normal range of motion. Neuro: Awake and alert, GCS 15, oriented to person, place, time, and situation. Cranial nerves II-XII grossly intact. Motor strength 5/5 in all extremities. Sensory grossly intact. Cerebellar exam normal. Normal gait. Psych: Awake, alert, with orientation to person, place and time. Behavior, mood, and affect are within normal limits. 13:42 ECG was reviewed by the Attending Physician. Vital Signs: 11:00 BP 153 / 97; Pulse 97; Resp 22; Temp 97.8(O); Pulse Ox 98% on R/A; MAP 114 mmHg; Weight tm6 79.38 kg; Height 5 ft. 1 in. ; Pain 0/10; 14:00 BP 149 / 85; Pulse 85; Resp 16; Pulse Ox 97% ; bp 11:00 Body Mass Index 33.07 (79.38 kg, 154.94 cm) tm6 11:00 Pain Scale: Adult tm6 MDM: 10:59 Patient medically screened. [facility] 13:45 Data reviewed: vital signs, nurses notes, lab test result(s), EKG, radiologic studies, lennox plain films. Consideration of Admission/Observation Escalation of care including admission/observation considered. I considered the following discharge prescriptions or medication management in the emergency department Medications were administered in the Emergency Department. See MAR. Independent interpretation of the following test(s) in the Emergency Department EKG: See my EKG interpretation above. Test considered but Not performed: Ultrasound no 2 d echo. Historians other than the Patient: back. Care significantly affected by the following chronic conditions: Diabetes, Hypertension, Obesity. 01/07 11:00 Order name: Basic Metabolic Panel; Complete Time: 13:41 [facility] 01/07 11:00 Order name: CBC with Diff; Complete Time: 13:41 [facility] 01/07 11:00 Order name: LFT's; Complete Time: 13:41 lennox 01/07 11:00 Order name: Magnesium; Complete Time: 13:41 [facility] 01/07 11:00 Order name: NT PRO-BNP; Complete Time: 13:41 lennox 01/07 11:00 Order name: PT-INR; Complete Time: 13:41 lennox 01/07 11:00 Order name: Troponin HS; Complete Time: 13:41 [facility] 01/07 11:18 Order name: Glucose, Ancillary Testing; Complete Time: 13:41 EDMS 01/07 11:00 Order name: XRAY Chest (1 view); Complete Time: 13:41 lennox 01/07 11:00 Order name: EKG; Complete Time: 11:00 lennox 01/07 11:00 Order name: Cardiac monitoring; Complete Time: 11:42 lennox 01/07 11:00 Order name: EKG - Nurse/Tech; Complete Time: 11:12 lennox 01/07 11:00 Order name: IV Saline Lock; Complete Time: 11:42 [facility] 01/07 11:00 Order name: Labs collected and sent; Complete Time: [facility] 01/07 11:00 Order name: O2 Per Protocol; Complete Time: [facility] 01/07 11: Order name: O2 Sat Monitoring; Complete Time: [facility] EC:42 Rate is 98 beats/min. Rhythm is regular. QRS Arnold is Normal. DE interval is normal. QRS lennox interval is normal. QT interval is normal. No Q waves. T waves are Normal. No ST changes noted. Clinical impression: NSR w/ Non-specific ST/T Changes and No evidence of ischemia. Interpreted by me. Reviewed by me. Administered Medications: Drug: NS 0.9% IV 500 ml IV at bolus once Route: IV; Rate: bolus; Site: right bp antecubital; 14:10 Follow up: IV Status: Completed infusion; IV Intake: 500ml bp 14:00 Drug: Potassium PO Effervescent Tablet 25 mEq PO once; dissolve in 4 ounces of water or bp juice Route: PO; 14:10 Follow up: Response: No adverse reaction bp Point of Care Testing: Blood Glucose: : Blood Glucose: 145 mg/dL; tm6 Ranges: Critical Glucose Levels:Adult <50 mg/dl or >400 mg/dl <40 mg/dl or >180 mg/dl Disposition Summary: 01/08/24 13:49 Discharge Ordered Notes: Location: Home lennox Problem: new lennox Symptoms: have improved lennox Condition: Stable lennox Diagnosis - Type 2 diabetes mellitus with hyperglycemia lennox - Obesity, unspecified lennox - Essential (primary) hypertension lennox - Hyperlipidemia, unspecified lennox Followup: lennox - With: Private Physician - When: 2 - 3 days - Reason: Recheck today's complaints, Continuance of care, Re-evaluation by your physician Followup: lennox - With: Juan Francisco Rodriguez DO - When: 2 - 3 days - Reason: Recheck today's complaints, Re-evaluation by your physician Discharge Instructions: - Discharge Summary Sheet lennox - Type 2 Diabetes Mellitus, Diagnosis, Adult lnenox - Fat and Cholesterol Restricted Eating Plan lennox - High-Fiber Eating Plan lennox - Hyperglycemia lennox - Hypertension, Adult lennox - Obesity, Adult lennox - Hypertension, Adult, [id number] lennox - Diabetes Mellitus and Nutrition, Adult lennox - How to Take Your Blood Pressure, [id number] lennox - Aspirin and Your Heart lennox - Managing Your Hypertension [facility] Forms: - Medication Reconciliation Form lennox - Antibiotic Education lennox - Prescription Opioid Use lennox - Patient Portal Instructions [facility] - Leadership Thank You Letter [facility] Prescriptions: - Lipitor 20 mg Oral tablet - take 1 tablet ORAL route daily; 20 tablet; Refills: 0, Product Selection lennox Permitted - Metoprolol Tartrate 25 mg Oral tablet - take 1 tablet ORAL route 2 times per day with a meal; 40 tablet; Refills: 0, [facility] Product Selection Permitted - Lisinopril 10 mg Oral Tablet - take 1 tablet ORAL route once daily; 20 tablet; Refills: 0, Product Selection [facility] Permitted - Metformin 500 mg Oral Tablet Sustained Release 24 hr - take 1 tablet ORAL route once daily with evening meal; 20 tablet; Refills: 0, [facility] Product Selection Permitted Signatures: Dispatcher [employer] Demetri Kitchen MD MD cha Peltier, Brian, RN RN Alexandro Clemons RN RN tm6 Corrections: (The following items were deleted from the chart) 11: 11:00 BASIC METABOLIC PANEL+C.LAB.BRZ ordered. EDMS EDMS 11 11:00 CBC+H.LAB.BRZ ordered. EDMS EDMS 11: 11:00 HEPATIC FUNCTION+C.LAB.BRZ ordered. EDMS EDMS 11: 11:00 MAGNESIUM+C.LAB.BRZ ordered. EDMS EDMS 11: 11:00 PROBNP+C.LAB.BRZ ordered. EDMS EDMS 11: 11:00 PROTIME (+INR)+COAG.LAB.BRZ ordered. EDMS EDMS 11: 11:00 Troponin High Sensitivity+C.LAB.BRZ ordered. EDMS EDMS 11: 11:00 Urinalysis+U.LAB.BRZ ordered. EDMS EDMS
[2024-01-08] MEDS ORDERED: POTASSIUM 25 MEQ EFFERV TAB ONE (14:01)
[2024-01-09 03:57] VITALS: TEMP 97.8
[2024-01-09 05:16] VITALS: BP 149/85; O2SAT 97
--- NOTE | 2024-01-10 16:42 | EKG ---
Test Date: 2024-01-08 Test Time: 11:28:14 Wheat Buyer: DENG MEASUREMENT RESULTS: Intervals: Rate: 97 [place]: 184 QRSD: 82 QT: 372 QTc: 472 [place]: P: 15 [place]: 184 QRS: -7 T: -7 INTERPRETIVE STATEMENTS: Normal sinus rhythm Normal ECG Compared to ECG 01/08/2024 11:10:56 No significant changes Electronically Signed On 01-10-24 16:34:29 CDT by Andrew Plaza
== END 2024-01-08 15:14 | disposition home or self-care (01) ==
LOC: ER 10:54
DX: Z76.0 Encounter for issue of repeat prescription (principal); E11.65 Type 2 diabetes mellitus with hyperglycemia; I10 Essential (primary) hypertension; I25.2 Old myocardial infarction; E11.40 Type 2 diabetes mellitus with diabetic neuropathy, unspecified; E66.9 Obesity, unspecified; E78.5 Hyperlipidemia, unspecified; R11.0 Nausea; R42 Dizziness and giddiness; Z68.33 Body mass index [BMI] 33.0-33.9, adult
CPT/HCPCS: 36415; 71045; 80048; 80076; 82947; 83735; 83880; 84484; 85025; 85610; 93005; 96360; 96361; 99284

== ENCOUNTER 2024-07-18 09:09 | Emergency (ER) | payer MEDICARE, OTHER ==
--- OUTSIDE RECORDS SUMMARY | 2024-07-18 09:12 | XMS REPORT | Continuity of Care Document ---
Author Name Unknown Address [address] [place] [address] Organization [facility] [place] Address [address] [place] [address] Care Team Providers Care Equal Opportunity Representative Name Role Phone Perico Bridges Attending Clinician Unavailable Problems Condition Name Condition Details Condition Category Status Onset Date Resolution Date Last Treatment Date Treating Clinician Comments Source [id number] Body mass index [BMI] 33.0-33.9, adult Problem [facility] [id number] Coronary artery disease of [place] artery of [place] heart with stable angina pectoris Problem [facility] [id number] Mixed hyperlipid emia Problem [facility] [id number] Essential (primary) hypertensi on Problem [facility] [id number] Sleep apnea in adult Problem [facility] [id number] Type 2 diabetes mellitus with hyperglyce hellen, without long-term current use of insulin Problem [facility] [id number] Primary insomnia Problem [facility] [id number] Other obesity due to excess calories Problem [facility] Social History Social Habit Start Date Stop Date Quantity Comments Source History of Tobacco Use [facility] Sex Assigned At [facility] Smoking Status Start Date Stop Date Source Never Smoker [facility] Medications Ordered Medication Name Filled Medication Name [...] Name Observation Time Observation Value Comments S ource height 2021-11-14 11:00:00 62.5 [in_i] Comm on [facility] weight 2021-11-14 11:00:00 188.8 [lb_av] Co mmon [facility] temperature 2021-11-14 11:00:00 97.0 [degF] Com mon [facility] bmi 2021-11-14 11:00:00 33.98 kg/m2 Comm on [facility] oximetry 2021-11-14 11:00:00 95 % Commo n [facility] respiratory rate 2021-11-14 11:00:00 16 /min Common [facility] blood pressure systolic 2021-11-14 11:00:00 125 mm[Hg] [facility] blood pressure diastolic 2021-11-14 11:00:00 60 mm[Hg] [facility] Encounters Start Date/Time End Date/Time Encounter Type Admission Type Attending Clinicians Care Facility Care Department Encounter ID Source 2022-03-12 07:48:02 Outpatient [facility]yrus [facility] [id number] [facility] 2022-03-07 09:42:03 Outpatient Cyrus [facility] [id number] [facility] 2021-11-14 10:27:04 Outpatient Perico Bridges [facility] [id number] [facility] 2024-05-12 08:23:15 2024-05-12 08:23:15 Outpatient [facility] [id number] Derick Smith 2024-03-13 07:56:26 2024-03-13 07:56:26 Outpatient [facility] [id number] Derick Smith 2024-03-11 08:03:06 2024-03-11 08:03:06 Outpatient [facility] [id number] Derick Smith 2024-02-10 08:02:57 2024-02-10 08:02:57 Outpatient [facility] [id number] Derick Smith 2023-10-03 00:00:00 2023-10-03 00:00:00 (TEL) [facility]LMLC STL[facility]C [id number] [facility] 2022-05-09 00:00:00 2022-05-09 00:00:00 (TEL) [facility]MLC ST[facility] [id number] [facility] 2022-05-02 00:00:00 2022-05-02 00:00:00 (TEL) STLMLC ST[facility]C [id number] [facility] 2021-11-16 00:00:00 2021-11-16 00:00:00 (TEL) [facility]LMLC ST[facility]C [id number] [facility] 2021-11-14 00:00:00 2021-11-14 00:00:00 OFFICE VISIT NEW PT LEVEL 3 STLMLC STLMLC [id number] [facility] Results Test Description Test Time Test Comments Results Result Co mments Source HEMOGLOBIN [id number] 05:06:47* Test Item Value Reference Range Interpretation Comme nts HEMOGLOBIN A1c (test code = 43189) 5.8 % 4.2-5.6 H [employer] GUIDELINES FOR HGB A1C: PREDIABETES/INCREASED RISK . . . . . . . 5.7-6.4% DIAGNOSIS OF DIABETES . . . . . . . . . >=6.5% WITH CONFIRMATION OR APPROPRIATE SYMPTOMS NOTE: ASSAY MAY BE AFFECTED BY HEMOGLOBINOPATHIES (SICKLE CELL ANEMIA, S-C DISEASE, OTHERS) OR ARTIFICIALLY LOWERED BY DECREASED RED CELL SURVIVAL (HEMOLYTIC ANEMIAS, BLOOD LOSS, ETC.). CONSIDER ALTERNATE TESTING OR LABORATORY CONSULTATION. COMPREHENSIVE METABOLIC [id number] 04:41:45* Test Item Value Reference Range Interpretation Comme nts GLUCOSE (test code = 2216) 99 MG/DL 70-99 BUN (test code = 2207) 11 MG/DL 8-23 CREATININE (test code = 2214) 0.85 MG/DL 0.80-1.40 eGFR (2020 CKD-EPI) (test co de = ) 97 ML/MIN/1.73 >60 CALC BUN/CREAT (test code = 5) 13 RATIO 6-28 SODIUM (test code = 223) 138 MEQ/L 133-146 POTASSIUM (test code = 2228) 4.4 MEQ/L 3.5-5.4 CHLORIDE (test code = 2215) 99 MEQ/L 95-107 CARBON DIOXIDE (test code = 2206) 24 MEQ/L 19-31 CALCIUM (test code = 2209) 10.2 MG/DL 8.5-10.5 PROTEIN, TOTAL (test code = 2229) 8.3 G/DL 6.1-8.3 ALBUMIN (test code = 2201) 4.5 G/DL 3.5-5.2 CALC GLOBULIN (test code = 2240) 3.8 G/DL 1.9-3.7 H CALC A/G RATIO (test code = 2234) 1.2 RATIO 1.0-2.6 BILIRUBIN, TOTAL (test code = 2207) 0.6 MG/DL <=1.2 ALKALINE PHOSPHATASE (test code = 2204) 101 U/L 40-123 AST (test code = 2218) 31 U/L 9-50 ALT (test code = 2219) 37 U/L 5-50 LIPID [id number] 04:41:45* Test Item Value Reference Range Interpretation Comme nts CHOLESTEROL (test code = 2210) 168 MG/DL <200 TRIGLYCERIDES (test code = 2232) 113 MG/DL <150 HDL CHOLESTEROL (test code = 2220) 61 MG/DL >39 CALC LDL CHOL (test code = 2237) 86 MG/DL <100 NOTE: CALCULATED LDL IS BASED ON AIDA-RIVERA METHOD WHICHINCLUDES ADJUSTABLE TRIGLYCERIDE:VLDL CHOLESTEROL RATIO.THIS FACTOR VARIES BY MEASURED TRIGLYCERIDE AND NON-HDLCHOLESTEROL CONCENTRATIONS WITH INCREASED CALCULATED LDL SEENIN HIGHER TRIGLYCERIDE OR LOWER NON-HDL SPECIMENS. FOR MOREINFORMATION, SEE CLIENT ANNOUNCEMENT AT [email or web address] [email or web address] RATIO LDL/HDL (test code = 2238) 1.41 RATIO <3.55
[2024-07-18] MEDS ORDERED: MORPHINE 4 MG/ML SYR ONE (09:24)
[2024-07-18] MEDS ORDERED: ONDANSETRON 4 MG/2 ML VIAL ONE (09:24)
[2024-07-18 10:06] LABS: Absolute Basophils 0.1 K/uL (0-0.5); Absolute Eosinophils 0.2 K/uL (0-0.5); Absolute Lymphocytes (CBC) 4.6 K/uL (0.7-4.9); Absolute Monocytes 1.3 K/uL (0.1-1.3); Basophils % 0.9 % (0-1.3); Eosinophils % 1.2 % (0-4.4); Hematocrit 47.9 % (39.6-49.0); Hemoglobin 16.4 g/dL (13.6-17.9); Lymphocytes % 35.1 % (15.3-44.8); MCH 28.8 pg (27.0-35.0); MCHC 34.2 g/dL (32.0-36.0); MCV 84.4 fL (80-100); MPV 8.7 fL (7.6-11.3); Monocytes % 9.9 % (3.3-12.3); Neutrophils % 52.9 % (41.7-73.7); Platelets 356 thou/uL (152-406); RBC Red Blood Cell Count 5.67 M/uL (4.33-5.43); Red Cell Distribution Width 13.6 % (12.1-15.2)
[2024-07-18 10:10] LABS: Albumin 3.6 g/dL (3.4-5.0); Albumin/Globulin Ratio 0.7 (1.1-1.8); Anion Gap 11.5 mEq/L (5.0-15.0); Bilirubin Direct 0.3 mg/dL (0-0.2); Bilirubin Indirect, Calculated 0.4 mg/dL (0.2-0.8); Bilirubin Total 0.7 mg/dL (0.2-1.0); Globulin 5.3 g/dL (2.3-3.5); Magnesium 2.2 mg/dL (1.6-2.4); Potassium 4.5 mEq/L (3.5-5.1); Protein, Total 8.9 g/dL (6.4-8.2); Troponin High Sensitivity 3.4 pg/mL (<58.9)
--- NOTE | 2024-07-18 10:45 | RAD REPORT ---
EXAM: Abdominal exam Limited ultrasound CLINICAL HISTORY: Abdominal pain COMPARISON: 2015 FINDINGS: A gallstone is not seen. Gallbladder wall not thickened. Biliary tree normal caliber 5 cm hypoechoic lesion right lobe liver IMPRESSION: Unremarkable gallbladder ultrasound 5 cm hypoechoic lesion liver may represent a metastasis
--- NOTE | 2024-07-18 11:01 | RAD REPORT ---
EXAM: Chest Abdomen Pelvis W Cont CLINICAL INDICATION: Shortness of breath and abdominal pain TECHNIQUE: CT chest, abdomen and pelvis was performed, with 100 cc Isovue-300 IV contrast, as per de partment protocol. Axial, sagittal and coronal reconstructions were obtained. One or more of the following dose reduction techniques were used: Automated exposure control, adjustment of the mA and/o r kV according to the patient size, and/or iterative reconstruction. Unless otherwise specified, incidental findings do not require dedicated imaging follow-up. [id number]. Oral contrast not given. This limits evaluation of the bowel. COMPARISON: 2020 and 2016 FINDINGS: Lungs are clear. No mediastinal or hilar lymphadenopathy. No pleural effusion.. No pericardial effusion The liver contains at least 5 hypodense lesions. Most lie within the right lobe. The largest measures 7.2 cm within the posterior segment. The portal vein is patent. Biliary tree normal caliber. Mild soft tissue prominence pancreatic neck is unchanged from 2017 likely indicating normal pancreati c tissue. No pancreatic ductal dilatation. Spleen, adrenals and kidneys unremarkable. Normal appendix. No obvious bowel lesion seen but can be missed on CT. Small inguinal hernias. No significant lymphadenopathy visualized. No ascites. No omental/mesenteric nodules. There is no evidence of diverticulitis. Mild prostatic enlargement IMPRESSION: Multiple hepatic masses have developed since prior imaging likely representing metastases
--- NOTE | 2024-07-18 12:18 | EDPHYS ---
Physician Documentation [facility] Name: Andrey Wells Age: 64 yrs Sex: Male : 1960 Arrival Date: 07/18/2024 Time: 09: Bed 5 Private MD: ED Physician Juan Antonio Bishop HPI: 07/18 10:20 This 64 yrs old Male presents to ER via Wheelchair with complaints of rt Abdominal Pain - RUQ. 10:20 Patient presents to the ED with a right upper quadrant pain that woke him up at about rt 3. Patient subsequently developed a dizziness and shortness of breath. He states that he has had a previous heart attack but is never had similar symptoms previously. Denies other acute complaints at this time, symptoms are moderate in severity, no other aggravating or alleviating factors.. Historical: - Allergies: :23 No Known Allergies; aa5 - PMHx: :23 diabetes mellitus; Hypertensive disorder; Myocardial infarction; neuropathy; aa5 Hypercholesterolemia; - PSHx: 09:23 back surgery; aa5 - Family history:: not pertinent. ROS: 10:20 Constitutional: Negative for fever, chills, and weight loss, Cardiovascular: Negative rt for chest pain, palpitations, and edema, MS/Extremity: Negative for injury and deformity, Neuro: Negative for headache, weakness, numbness, tingling, and seizure, 10:20 Respiratory: Positive for shortness of breath, Negative for cough, 10:20 Abdomen/GI: Positive for abdominal pain, Negative for vomiting, 10:20 Neuro: Positive for dizziness, Negative for loss of consciousness, Exam: 10:20 Constitutional: This is a well developed, well nourished patient who is awake, alert, rt and in no acute distress. Head/Face: Normocephalic, atraumatic. Chest/axilla: Normal chest wall appearance and motion. Nontender with no deformity. No lesions are appreciated. Cardiovascular: Regular rate and rhythm with a normal S1 and S2. No gallops, murmurs, or rubs. Normal PMI, no JVD. No pulse deficits. Respiratory: Lungs have equal breath sounds bilaterally, clear to auscultation and percussion. No rales, rhonchi or wheezes noted. No increased work of breathing, no retractions or nasal flaring. Male : Normal genitalia with no discharge or lesions. Skin: Warm, dry with normal turgor. Normal color with no rashes, no lesions, and no evidence of cellulitis. MS/ Extremity: Pulses equal, no cyanosis. Neurovascular intact. Full, normal range of motion. 10:20 ECG was reviewed by the Attending Physician. 10:20 Abdomen/GI: Tenderness to the right upper quadrant with mild guarding, no rebound, distention, Vital Signs: 09:13 BP 154 / 79; Pulse 83; Resp 16 S; Temp 97.4(O); Pulse Ox 99% on R/A; aa5 09:45 BP 123 / 82; Pulse 78; Resp 18 S; Pulse Ox 94% on R/A; aa5 11:00 BP 112 / 79; Pulse 80; Resp 14 S; Pulse Ox 93% on R/A; aa5 12:30 BP 126 / 80; Pulse 84; Resp 16 S; Pulse Ox 95% on R/A; aa5 MDM: 09:14 Medical Screening Exam initiated rt 19:32 Differential Diagnosis: Cholecystitis, bowel obstruction, pancreatitis, nonspecific rt abdominal pain, ACS. Data reviewed: vital signs, nurses notes, lab test result(s), EKG, radiologic studies. Consideration of Admission/Observation Escalation of care including admission/observation considered. Symptoms improving with treatment in the emergency department, no acute findings on CT scan safe for likely metastatic disease to the liver. I had a long discussion with the patient regarding this, suspect that colon may be the etiology, instructed him to follow-up with gastroenterology as well as primary care for further evaluation of this. Patient verbalized understanding is comfortable discharge, return precautions were discussed.. Independent interpretation of the following test(s) in the Emergency Department CT Scan: My interpretation is No bowel obstruction syndrome interpretation of CT scan images. Care significantly affected by the following chronic conditions: Diabetes, Hypertension. Counseling: I had a detailed discussion with the patient and/or guardian regarding the historical points, exam findings, and any diagnostic results supporting the discharge/admit diagnosis, lab results, radiology results, the need for outpatient follow up, to return to the emergency department if symptoms worsen or persist or if there are any questions or concerns that arise at home. Response to treatment: the patient's symptoms have markedly improved after treatment. 07/18 09:21 Order name: Basic Metabolic Panel; Complete Time: 10:20 rt 04/12 09:21 Order name: CBC with Diff; Complete Time: 10:20 rt 07/18 09:21 Order name: LFT's; Complete Time: : rt 07/18 09:21 Order name: Magnesium; Complete Time: : rt 07/18 09:21 Order name: Troponin HS; Complete Time: 10:20 rt 07/18 09:21 Order name: Lipase; Complete Time: : rt 07/18 09:21 Order name: Chest Abdomen Pelvis W Con CT; Complete Time: 11: rt 07/18 09:21 Order name: US Abdomen Limited; Complete Time: 11: rt 07/18 09:21 Order name: Cardiac monitoring; Complete Time: : rt 07/18 09:21 Order name: EKG - Nurse/Tech; Complete Time: : rt 07/18 09:21 Order name: IV Saline Lock; Complete Time: : rt 07/18 09:21 Order name: Labs collected and sent; Complete Time: : rt 07/18 09:21 Order name: O2 Per Protocol; Complete Time: : rt 07/18 09:21 Order name: O2 Sat Monitoring; Complete Time: 09:23 rt EC:20 Rate is 84 beats/min. Rhythm is regular, Normal Sinus Rhythm with No ectopy. QRS [place] rt is Normal. RI interval is normal. QRS interval is normal. QT interval is normal. No Q waves. T waves are Normal. No ST changes noted. Interpreted by me. Administered Medications: 09:35 Drug: morphine IVP or IV 4 mg IVP once over 4 mins Route: IVP; Infused Over: 4 mins; jl7 Site: right antecubital; 09:35 Follow up: Response: RASS: Restless (+1) jl7 09:35 Drug: Ondansetron IVP 4 mg IVP once; over 2 minutes Route: IVP; Site: right antecubital;jl7 09:40 Follow up: Response: No adverse reaction aa5 Disposition Summary: 07/18/24 12:18 Discharge Ordered Notes: Location: Home rt Problem: new rt Symptoms: have improved rt Condition: Stable rt Diagnosis - Abdominal pain, unspecified rt - Hepatic mass rt Followup: rt - With: Dony Hendrix MD - When: 2 - 3 days - Reason: Discharge Instructions: - Discharge Summary Sheet rt - Abdominal Pain, Adult rt Forms: - Medication Reconciliation Form rt - Antibiotic Education rt - Prescription Opioid Use rt - Patient Portal Instructions rt - Leadership Thank You Letter rt Prescriptions: - Tylenol-Codeine #3 300mg-30mg Oral tablet - take 1 tablet ORAL route every 4 hours As needed; 15 tablet; Refills: 0, rt Product Selection Permitted Signatures: Dispatcher [employer] EDNayely Spencer, RN RN aa5 Spenser Snider RN RN jl7 Juan Antonio Bishop MD MD rt Corrections: (The following items were deleted from the chart) : 09:22 Chest Abdomen Pelvis W Con+CT.RAD.BRZ ordered. EDMS EDMS 09:22 Abdomen Limited+US.RAD.BRZ ordered. EDMS EDMS : 09:23 PMHx: BACK; aa5 aa5
--- NOTE | 2024-07-18 12:18 | ER ---
Nurse's Notes [facility] Name: Andrey Wells Age: 64 yrs Sex: Male : 1960 Arrival Date: 07/18/2024 Time: 09:09 Bed 5 Private MD: Diagnosis: Abdominal pain, unspecified;Hepatic mass Presentation: 07/18 09:13 Chief complaint: Patient states: RUQ pain that began this morning, also c/o SOB and aa5 feeling lightheaded. Denies nausea/vomiting. 09:13 Coronavirus screen: shortness of breath. Ebola Screen: Patient denies travel to an aa5 Ebola-affected area in the 21 days before illness onset. Initial Sepsis Screen: Does the patient meet any 2 criteria? No. Patient's initial sepsis screen is negative. Does the patient have a suspected source of infection? No. Patient's initial sepsis screen is negative. Risk Assessment: Do you want to hurt yourself or someone else? Patient reports no desire to harm self or others. Onset of symptoms was July 18, 2024. 09:13 Method Of Arrival: Wheelchair aa5 09:13 Acuity: KANDY 3 aa5 Historical: - Allergies: 09:23 No Known Allergies; aa5 - PMHx: 09:23 diabetes mellitus; Hypertensive disorder; Myocardial infarction; neuropathy; aa5 Hypercholesterolemia; - PSHx: 09:23 back surgery; aa5 - Family history:: not pertinent. Screenin:13 [facility] ED Fall Risk Assessment (Adult) History of falling in the last 3 months, aa5 including since admission No falls in past 3 months (0 pts) Confusion or Disorientation No (0 pts) Intoxicated or Sedated No (0 pts) Impaired Gait No (0 pts) Mobility Assist Device Used No (0 pt) Altered Elimination No (0 pt) Score/Fall Risk Level 0 - 2 = Low Risk Oriented to surroundings, Maintained a safe environment, Educated pt \T\ family on fall prevention, incl call for assistance when getting out of bed, Assessed \T\ reinforced patient's understanding of fall precautions. Abuse screen: Denies threats or abuse. Nutritional screening: No deficits noted. Tuberculosis screening: No symptoms or risk factors identified. Assessment: 09:13 General: Appears uncomfortable, Behavior is cooperative. Pain: Complains of pain in aa5 right upper quadrant Pain currently is 10 out of 10 on a pain scale. Quality of pain is described as sharp, Pain began this morning Is continuous. Neuro: Level of Consciousness is awake, alert, obeys commands, Oriented to person, place, time, situation. Cardiovascular: Patient's skin is warm and dry. Respiratory: Airway is patent Respiratory effort is even, unlabored, Respiratory pattern is regular, symmetrical. GI: Abdomen is round Bowel sounds present X 4 quads. Abd is soft X 4 quads Abdomen is tender to palpation in right upper quadrant. : No signs and/or symptoms were reported regarding the genitourinary system. EENT: No signs and/or symptoms were reported regarding the EENT system. Derm: Skin is pink, warm \T\ dry. Musculoskeletal: Range of motion: intact in all extremities. 11:00 Reassessment: Patient is alert, oriented x 3, equal unlabored respirations, skin aa5 warm/dry/pink. Patient states feeling better. 12:30 Reassessment: Patient is alert, oriented x 3, equal unlabored respirations, skin aa5 warm/dry/pink. Vital Signs: 09:13 BP 154 / 79; Pulse 83; Resp 16 S; Temp 97.4(O); Pulse Ox 99% on R/A; aa5 09:45 BP 123 / 82; Pulse 78; Resp 18 S; Pulse Ox 94% on R/A; aa5 11:00 BP 112 / 79; Pulse 80; Resp 14 S; Pulse Ox 93% on R/A; aa5 12:30 BP 126 / 80; Pulse 84; Resp 16 S; Pulse Ox 95% on R/A; aa5 ED Course: 09:11 Patient arrived in ED. im 09:13 Juan Antonio Bishop MD is Attending Physician. rt 09:13 Arm band placed on Patient placed in an exam room, on a stretcher. aa5 09:13 Patient has correct armband on for positive identification. Placed in gown. Bed in low aa5 position. Call light in reach. Side rails up X2. Adult w/ patient. Client placed on continuous cardiac and pulse oximetry monitoring. NIBP monitoring applied. pvc monitor on. Pulse ox on. NIBP on. 09:20 Nayely Spears RN is Primary Nurse. aa5 09:20 Initial lab(s) drawn, by me, sent to lab. Inserted saline lock: 20 gauge in right zm wrist, using aseptic technique. Blood collected. Flushed with 10 mL NS. 09:22 Triage completed. aa5 09:23 EKG done, by ED staff, reviewed by Juan Antonio Bishop MD. aa5 10:04 US Abdomen Limited In Process Unspecified. EDMS 10:41 Chest Abdomen Pelvis W Con CT In Process Unspecified. EDMS 12:17 Dony Hendrix MD is Referral Physician. rt 12:30 No provider procedures requiring assistance completed. IV discontinued, intact, aa5 bleeding controlled, No redness/swelling at site. Pressure dressing applied. Administered Medications: 09:35 Drug: morphine IVP or IV 4 mg IVP once over 4 mins Route: IVP; Infused Over: 4 mins; jl7 Site: right antecubital; 09:35 Follow up: Response: RASS: Restless (+1) jl7 09:35 Drug: Ondansetron IVP 4 mg IVP once; over 2 minutes Route: IVP; Site: right antecubital;jl7 09:40 Follow up: Response: No adverse reaction aa5 Medication: 12:33 VIS not applicable for this client. aa5 Outcome: 12:18 Discharge ordered by MD. rt 12:30 Discharged to home ambulatory, with family, aa5 12:30 Condition: stable 12:30 Discharge instructions given to patient, family, Instructed on discharge instructions, follow up and referral plans. medication usage, Demonstrated understanding of instructions, follow-up care, medications, Prescriptions given X 1, 12:32 Patient left the ED. aa5 Signatures: Dispatcher [employer] EDMS Nayely Spears RN RN aa5 Spenser Snider RN RN jl7 Pennie Guardado Ryan, MD MD rt Ashley Hoffmann Corrections: (The following items were deleted from the chart) 09:23 09:23 PMHx: BACK; aa5 aa5
[2024-07-18 12:38] VITALS: TEMP 97.4
[2024-07-18 12:40] VITALS: BP 112/79; O2SAT 93
--- NOTE | 2024-07-20 10:53 | EKG ---
Test Date: 2024-07-18 Test Time: 09:18:00 Senior Support Analyst: HUSEYIN MEASUREMENT RESULTS: Intervals: Rate: 84 [place]: 174 QRSD: 80 QT: 390 QTc: 460 [place]: P: 23 [place]: 174 QRS: 40 T: 35 INTERPRETIVE STATEMENTS: Normal sinus rhythm Normal ECG Compared to ECG 01/08/2024 11:28:14 No significant changes Electronically Signed On 07-20-24 10:48:48 CDT by Alejandro Mari
== END 2024-07-18 12:32 | disposition home or self-care (01) ==
LOC: ER 09:09
DX: R10.11 Right upper quadrant pain (principal); K76.89 Other specified diseases of liver; R42 Dizziness and giddiness; I25.2 Old myocardial infarction; E11.9 Type 2 diabetes mellitus without complications; I10 Essential (primary) hypertension
CPT/HCPCS: 93005; 85025; 80048; 36415; 83735; 80076; 84484; 83690; 71260; 74177; 76705; 96375; 96374; 99285; Q9967; J2405

== ENCOUNTER 2024-08-26 06:21 | Day surgery (SDC) | payer MEDICARE, OTHER ==
[2024-08-25 12:41] LABS: Absolute Basophils 0.1 K/uL (0-0.5); Absolute Eosinophils 0.1 K/uL (0-0.5); Absolute Lymphocytes (CBC) 3.5 K/uL (0.7-4.9); Absolute Neutrophil 8.1 K/uL (1.8-8.0); Eosinophils % 0.8 % (0-4.4); Hematocrit 44.7 % (39.6-49.0); Hemoglobin 15.1 g/dL (13.6-17.9); Lymphocytes % 27.5 % (15.3-44.8); MCH 27.8 pg (27.0-35.0); MCHC 33.8 g/dL (32.0-36.0); MCV 82.1 fL (80-100); MPV 8.3 fL (7.6-11.3); Monocytes % 8.1 % (3.3-12.3); Neutrophils % 62.6 % (41.7-73.7); Nucleated Red Blood Cells % 0.1 % (0-0); Platelets 452 thou/uL (152-406); RBC Red Blood Cell Count 5.44 M/uL (4.33-5.43); Red Cell Distribution Width 13.2 % (12.1-15.2)
[2024-08-25 13:02] LABS: Anion Gap 9.9 mEq/L (5.0-15.0); Potassium 3.9 mEq/L (3.5-5.1)
[2024-08-26] MEDS ORDERED: propofoL 200 MG/20 ML VIAL IV ONE (07:37)
[2024-08-26] MEDS ORDERED: LIDOCAINE 1% MPF 5 ML VIAL ONE (07:37)
[2024-08-26] MEDS: NA CHLORIDE 0.9% 1,000 ML ONE (07:37)
[2024-08-26] MEDS ORDERED: EPHEDRINE SULF 50 MG/ML VIAL ONE (08:01)
[2024-08-26] MEDS ORDERED: NA CHLORIDE 0.9% 500 ML ONE (08:53)
[2024-08-26 10:00] VITALS: TEMP 98
[2024-08-26 10:01] VITALS: BP 104/53; O2SAT 96
--- NOTE | 2024-08-26 12:24 | RAD REPORT ---
EXAM; Thorax W/ Con CLINICAL INDICATION: Esophageal mass. Liver metastases TECHNIQUE: Routine CT scan of the chest with 100 cc Isovue-370 intravenous contrast. One or more of t he following dose reduction techniques were used: Automated exposure control, adjustment of the mA and/or kV according to patient size, and/or iterative reconstruction. Unless otherwise specified, inc idental findings do not require dedicated imaging follow-up. [id number]. COMPARISON: July 2024 FINDINGS: The patient has a known mass within the distal esophagus seen on endoscopy.. Within this region there is suggestion of a subtle mass. 4 mm lymph node within the adjacent posterior mediastinum. 7 mm retrocrural lymph node. 19 mm lymph node medial to the caudate lobe. Lungs are clear. No mediastinal or hilar lymphadenopathy. No pleural effusion. No pericardial effusion. Hepatic lesions are again demonstrated. Largest within the posterior segment right lobe measuring 8 c m. IMPRESSION: Probable small distal esophageal mass corresponding to the endoscopy findings. Lymphadenopathy. Hepatic metastases
== END 2024-08-26 09:38 | disposition home or self-care (01) ==
LOC: OR 06:21
PROVIDERS: ATTEND Internal Medicine Gastroenterology
PROC: 0DB68ZX Excision of Stomach, Via Natural or Artificial Opening Endoscopic, Diagnostic (ICD-10-PCS; 2024-08-26)
PROC: 0DBH8ZX Excision of Cecum, Via Natural or Artificial Opening Endoscopic, Diagnostic (ICD-10-PCS; 2024-08-26)
PROC: 0DBN8ZX Excision of Sigmoid Colon, Via Natural or Artificial Opening Endoscopic, Diagnostic (ICD-10-PCS; 2024-08-26)
PROC: 0DBP8ZX Excision of Rectum, Via Natural or Artificial Opening Endoscopic, Diagnostic (ICD-10-PCS; 2024-08-26)
PROC: 0DB48ZX Excision of Esophagogastric Junction, Via Natural or Artificial Opening Endoscopic, Diagnostic (ICD-10-PCS; 2024-08-26)
PROC: 0DB38ZX Excision of Lower Esophagus, Via Natural or Artificial Opening Endoscopic, Diagnostic (ICD-10-PCS; principal; 2024-08-26 07:30)
PROC: 0DB78ZX Excision of Stomach, Pylorus, Via Natural or Artificial Opening Endoscopic, Diagnostic (ICD-10-PCS; 2024-08-26 07:30)
DX: C16.0 Malignant neoplasm of cardia (principal); B96.81 Helicobacter pylori [H. pylori] as the cause of diseases classified elsewhere; K63.5 Polyp of colon; D12.7 Benign neoplasm of rectosigmoid junction; R93.3 Abnormal findings on diagnostic imaging of other parts of digestive tract; R10.11 Right upper quadrant pain; R10.817 Generalized abdominal tenderness; K57.30 Diverticulosis of large intestine without perforation or abscess without bleeding; K64.8 Other hemorrhoids; K44.9 Diaphragmatic hernia without obstruction or gangrene; K29.50 Unspecified chronic gastritis without bleeding; Z12.11 Encounter for screening for malignant neoplasm of colon; Z80.0 Family history of malignant neoplasm of digestive organs
CPT/HCPCS: 43239; 45380; 85025; 80048; 36415; 88312; 82947 ×2; 88305; 71260; Q9967; J2704; J2003; J7040; J7030

== ENCOUNTER 2024-08-28 16:28 | Emergency (ER) | payer MEDICARE, OTHER ==
--- OUTSIDE RECORDS SUMMARY | 2024-08-28 16:35 | XMS REPORT | Continuity of Care Document ---
Author Name Unknown Address [address] [place] [address] [facility] [place] Address [address] [place] [address] Care Team Providers Care Weld Inspector Name Role Phone Perico Bridges Attending Clinician Unavailable Genevieve Ochoa Attending Clinician Susanne Lott Attending Clinician Problems Condition Name Condition Details Condition Category Status Onset Date Resolution Date Last Treatment Date Treating Clinician Comments Source [id number] Body mass index [BMI] 33.0-33.9, adult Problem [facility] [id number] Coronary artery disease of [place] artery of [place] heart with stable angina pectoris Problem [facility] [id number] Mixed hyperlipid emia Problem [facility] [id number] Essential (primary) hypertensi on Problem [facility] [id number] Sleep apnea in adult Problem [facility] [id number] Type 2 diabetes mellitus with hyperglyce hellen, without long-term current use of insulin Problem [facility] [id number] Primary insomnia Problem [facility] [id number] Other obesity due to excess calories Problem [facility] Social History Social Habit Start Date Stop Date Quantity Comments Source History of Tobacco Use [facility] Sex Assigned At [facility] Smoking Status Start Date Stop Date Source Never Smoker [facility] Medications Ordered Medication Name Filled Medication Name Start Date Stop Date Current Medication? Ordering Clinician Indication Dosage Frequency Signature (SIG) Comments Components Source traZODone HCl 50 MG traZODone HCl 50 MG 11-14 00:00: 00 No 1{table t_at_be dtime} QD traZODone HCl 50 MG atorvastati n calcium 40 mg tablet atorvastati n calcium 40 mg tablet Yes [facility] acetaminoph en-codeine 300-30 mg tablet acetaminoph en-codeine 300-30 mg tablet Yes [facility] trazodone hcl 50 mg tablet trazodone hcl 50 mg tablet Yes [facility] metoprolol tartrate 25 mg tablet metoprolol tartrate 25 mg tablet Yes [facility] metformin hcl 500 mg tablet metformin hcl 500 mg tablet Yes [facility] lisinopril 10 mg tablet lisinopril 10 mg tablet Yes [facility] Lisinopril 10 MG Lisinopril 10 MG No [...] height 2021-11-14 11:00:00 62.5 [in_i] Comm on [facility] weight 2021-11-14 11:00:00 188.8 [lb_av] Co mmon [facility] temperature 2021-11-14 11:00:00 97.0 [degF] Com mon [facility] bmi 2021-11-14 11:00:00 33.98 kg/m2 Comm on [facility] oximetry 2021-11-14 11:00:00 95 % Commo n [facility] respiratory rate 2021-11-14 11:00:00 16 /min [facility] blood pressure systolic 2021-11-14 11:00:00 125 mm[Hg] [facility] blood pressure diastolic 2021-11-14 11:00:00 60 mm[Hg] [facility] Encounters Start Date/Time End Date/Time Encounter Type Admission Type Attending [facility] Facility Care Department Encounter ID Source 2022-03-12 07:48:02 Outpatient Bridges, [facility] [id number] [facility] 2022-03-07 09:42:03 Outpatient Bridges, [facility] [id number] [facility] 2021-11-14 10:27:04 Outpatient Cyrus [facility] [id number] [facility] 2024-07-31 07:30:00 2024-07-31 08:30:00 Initial D2Me Genevieve Ladson [id number] [facility] 2024-07-22 10:56:00 2024-07-22 11:26:00 Care Yesica Lott [id number] [facility] 2024-07-21 17:39:08 2024-07-21 17:39:08 Outpatient SFA SFA [id number] Derick Smith 2024-05-12 08:23:15 2024-05-12 08:23:15 Outpatient SFA SFA [id number] Derick Smith 2024-03-13 07:56:26 2024-03-13 07:56:26 Outpatient SFA SFA [id number] Derick Weeks Luis 2024-03-11 08:03:06 2024-03-11 08:03:06 Outpatient SFA SFA [id number] Derick Smith 2024-02-10 08:02:57 2024-02-10 08:02:57 Outpatient [facility] [id number] Derick Smith 2023-10-03 00:00:00 2023-10-03 00:00:00 (TEL) STLMLC STLMLC [id number] [facility] 2022-05-09 00:00:00 2022-05-09 00:00:00 (TEL) STLMLC STLMLC [id number] [facility] 2022-05-02 00:00:00 2022-05-02 00:00:00 (TEL) STLMLC STLMLC [id number] [facility] 2021-11-16 00:00:00 2021-11-16 00:00:00 (TEL) STLMLC STLMLC [id number] [facility] 2021-11-14 00:00:00 2021-11-14 00:00:00 OFFICE VISIT NEW PT LEVEL 3 STLMLC STLMLC [id number] [facility] Results Test Description Test Time Test Comments Results Result Co mments Source HEMOGLOBIN [id number] 05:06:47* Test Item Value Reference Range Interpretation Comme nts HEMOGLOBIN A1c (test code = 48311) 5.8 % 4.2-5.6 H [employer] GUIDELINES FOR HGB A1C: [...] ALTERNATE TESTING OR LABORATORY CONSULTATION. COMPREHENSIVE METABOLIC [id number] 04:41:45* Test Item Value Reference Range Interpretation Comme nts GLUCOSE (test code = 2217) 99 MG/DL 70-99 BUN (test code = 2208) 11 MG/DL 8-23 CREATININE (test code = 2214) 0.85 MG/DL 0.80-1.40 eGFR (2020 CKD-EPI) (test co de = 93404) 97 ML/MIN/1.73 >60 CALC BUN/CREAT (test code = 2235) 13 RATIO 6-28 SODIUM (test code = 223) 138 MEQ/L 133-146 POTASSIUM (test code = 2228) 4.4 MEQ/L 3.5-5.4 CHLORIDE (test code = 2215) 99 MEQ/L 95-107 CARBON DIOXIDE (test code = 2206) 24 MEQ/L 19-31 CALCIUM (test code = 2209) 10.2 MG/DL 8.5-10.5 PROTEIN, TOTAL (test code = 222) 8.3 G/DL 6.1-8.3 ALBUMIN (test code = 220) 4.5 G/DL 3.5-5.2 CALC GLOBULIN (test code = 2240) 3.8 G/DL 1.9-3.7 H CALC A/G RATIO (test code = 2234) 1.2 RATIO 1.0-2.6 BILIRUBIN, TOTAL (test code = 7) 0.6 MG/DL <=1.2 ALKALINE PHOSPHATASE (test code = 2204) 101 U/L 40-123 AST (test code = 2218) 31 U/L 9-50 ALT (test code = 2219) 37 U/L 5-50 LIPID [id number] 04:41:45* Test Item Value Reference Range Interpretation [...] SPECIMENS. FOR MOREINFORMATION, SEE CLIENT ANNOUNCEMENT AT [email or web address] RISK RATIO LDL/HDL (test code = 2238) 1.41 RATIO <3.55 Notes Date/Time Note Provider Source 2024-07-31 07:30:00 ASSESSMENT SUMMARY ANDREY WELLS is a 64 year old man seen today by [facility] for a [facility]. [facility]OT[facility]: (Actions completed today and next steps): schedule member for eye exam PATIENT'S NEXT STEPS: complete eye exam Additional Commentsmember will have colonoscopy after liver appointments Members Preferred Language Algerian Patient Currently Located in their home state of [place], YES DIAGNOSIS [id number] - Type 2 diabetes mellitus with other specified frarwywxxcwcN63.01 - Morbid (severe) obesity due to excess inxxojfrJ53.35 - Body mass index [BMI] 35.0-35.9, ktjwsK84.81 - Unsteadiness on feetE78.5 - Hyperlipidemia, unspecified VISIT PURPOSE, PATIENT'S GOALS, & AGENDA SETTING Annual Wellness Visit with PCP completed this year?: AWV already completed Today's Member Goals: liver spots sees GI on Saturday MEDICATION RECONCILIATION Did you review the patient's prescription and non-prescription drugs, vitamins, herbal remedies, and other supplements, AND is the accompanying medication list documented in the medical record?: Yes GENERAL ASSESSMENT* Feet: 5 WEIGHT (pounds): 180 <hr> BODY MEASUREMENTS:<em>Patient Height in centimeters</em>: 152.40<em>Patient Weight in kilograms</em>: 81.65<em>Patient Body Mass Index</em>: 35.15 Notes for E66.01: - Member with morbid obesity BMI 35.15% - Comorbid conditions: DM, HTN,HLD - Discussed diet, increasing exercise, increase water intake - Treatment : walking - Managed by: pcpDISCUSSED: Dietary counseling was provided Morbid obesity confirmed on physical exam: Yes Dx: Z68.35 - Body mass index [BMI] 35.0-35.9, adult Notes for Z68.35: - Member with morbid obesity BMI 35.15% - Comorbid conditions: DM, HTN,HLD - Discussed diet, increasing exercise, increase water intake - Treatment : walking - Managed by: pcpDISCUSSED: Dietary counseling was provided Systolic Blood Pressure: 136 Supplemental oxygen status: Room Air Supplemental Oxygen Needs: Completely dependent upon oxygen for the last 90 days In general, would you say your quality of life is: Good Do you exercise regularly?: Yes Physical activity level during a typical week: walks ⭐ Vaccinations (FLU) Confirm: MEMBER HAS COMPLETED ANNUAL FLU VACCINE: MEMBER CONFIRMED SUBSTANCE USE - Smoking History The patient denies a history of tobacco use SCREENING - Fall Risk Have you fallen in the past year?: Yes The patient takes the following class of medication which may increase the risk of falls: Antihypertensives: Yes DISCUSSED: Counseled the patient that one or more of the medications that the patient is taking is known to increase the risk of falls in the elderly Dx: R26.81 - Unsteadiness on feet Notes for R26.81: - Member with unsteadiness on feet with fall in the past year, concerns about balance. - Currently does not use DME for assistance with ADLS. - Encouraged on benefits of continued low impact exercise to improve balance - Medications reviewed for possible cause of imbalanceDISCUSSED: Counseled the patient on strategies to reduce the risk of falls SCREENING - DME & Home Health Does the patient use any durable medical equpiment?: No Does the patient use home health, physical therapy or retirement services?: No New orders, referrals, or any other assistance with DME or home health needed at this time?: No ⭐SCREENING: COLORECTAL CANCER COLORECTAL STATUS: NO KNOWN CA Has the member had a recent colon cancer screening?: No Appropriate Screening Do you have a plan to get screened?: YES Notes on plan to get screened: member plans to have colonoscopy after liver appointments GENERAL REVIEW OF SYSTEMS Weight Loss: Yes Constitutional Symptoms Notes: 20lbs in one month Changes in Vision: Yes HEENT Symptoms Notes: needs eye care appointment Urination at Night: Yes Review of systems negative unless otherwise indicated above: Yes RENAL - Chronic Kidney Disease Does patient carry a diagnosis of chronic kidney disease?: No Two basic metabolic panels by > 3 months showing an eGFR < 90?: No ENDOCRINE - Diabetes Diabetes Diagnosis: Type 2 Statin status: Already on a statin regimen Have a glucose monitor?: Yes The patient has the following medical complication secondary to diabetes: Hyperlipidemia: Yes Dx: E11.69 - Type 2 diabetes mellitus with other specified complication Notes for E11.69: DM type 2 complicated by hyperlipidemia. - Most recent A1C: no current labs to review - most recent LDL:no current labs to review - Pt compliant with medications for DM type 2: metformin - HLD treated with: LIPITOR - Managed and monitored by PCP -Low fat diet recommended Dx: E78.5 - Hyperlipidemia, unspecified Notes for E78.5: Hyperlipidemia: - last ldl: no current labs to review - managed by: PCP - low fat diet and exercise recommended - medication: lipitor DISCUSSED: Educated patient on etiology and natural history of diabetes and importance of self management DISCUSSED: Counseled patient on moderate exercise and increasing vegetable intake MORBID OBESITY Patient BMI: 35.15 The patient has a BMI of 35.15 as well as hyperlipidemia: Yes The patient has a BMI of 35.15 as well as coronary artery disease: Yes Dx: E66.01 - Morbid (severe) obesity due to excess calories Notes for E66.01: - Member with morbid obesity BMI 35.15% - Comorbid conditions: DM, HTN,HLD - Discussed diet, increasing exercise, increase water intake - Treatment : walking - Managed by: pcpDISCUSSED: Dietary counseling was provided Morbid obesity confirmed on physical exam: Yes Dx: Z68.35 - Body mass index [BMI] 35.0-35.9, adult Notes for Z68.35: - Member with morbid obesity BMI 35.15% - Comorbid conditions: DM, HTN,HLD - Discussed diet, increasing exercise, increase water intake - Treatment : walking - Managed by: pcpDISCUSSED: Dietary counseling was provided COMMON DIAGNOSES The patient has a diagnosis of hyperlipidemia: Yes Statin status: Already on a statin regimen Dx: E78.5 - Hyperlipidemia, unspecified Notes for E78.5: Hyperlipidemia: - last ldl: no current labs to review - managed by: PCP - low fat diet and exercise recommended - medication: lipitorDISCUSSED: Educated patient on etiology and natural history of hyperlipidemiaDISCUSSED: Educated patient on lifestyle modifications such as diet and exercise to improve lipid levelsDISCUSSED: Educated patient on importance of medication adherence to improve lipid levelsACTION: Confirmed that patient's lipid levels are being monitored by PCP ADDITIONAL MEDICAL HISTORY Condition: Essential (primary) hypertension Condition Stability: Stable Medication Adherence: Taking medication as prescribed Medication Regimen Recommendations: No changes recommended Follows with (provider): pcp Condition: Old myocardial infarction Condition Stability: Stable Medication Adherence: Taking medication as prescribed Medication Regimen Recommendations: No changes recommended Follows with (provider): pcp Condition: Type 2 diabetes mellitus with hyperglycemia Condition Stability: Stable Medication Adherence: Taking medication as prescribed Medication Regimen Recommendations: No changes recommended 2024 APPOINTMENT CPT CODE Please indicate how this visit was conducted: Video Please select the video platform used during the visit: [employer] Video Room Please record the total amount of time you spent on this patient visit- Total time includes time spent on preparation, speaking with the patient, documentation, and post-visit coordination of care - This is limited to time spent ON THE DATE OF SERVICE (e.g. does not include time spent on days prior to or after the date of service) 20 - 29 minutes Genevieve Ochoa [facility] 2024-07-22 10:56:00 ASSESSMENT SUMMARY ANDREY WELLS is a 64 year old man seen today by [facility]. [facility]its are designed to target a specific urgent or non-urgent clinical concern. See below for teaching and instruction given regarding specific diagnoses. Member verbalized understanding to all. Members Preferred Language Algerian Patient Currently Located in their home state of [place], YES DIAGNOSIS CJUPEBIO72.2 - Abnormal findings on diagnostic imaging of liver and biliary tract ⭐ Vaccinations (FLU) Confirm: MEMBER HAS COMPLETED ANNUAL FLU VACCINE: MEMBER CONFIRMED HISTORY OF PRESENT ILLNESS History of Present Illness: 64M with HTN, DM, HLD, CAD, Obesity and Sleep [place], calling with request for GI referral due to mass that was found on his liver while he was hospitalized. He reported being hospitalized for pain to his right side and lesion was found on imaging with recommendations to follow-up with outpatient GI. He has an appointment scheduled today at 1340, however the referral has not been processed and he has not had his initial visit with his PCP. The member attempted to connect over video multiple times, but he was not successful, and medical records have been reviewed, and consents obtained to proceed with Teleheath visit today. He is speaking in full and clear sentences and there is no acute distress appreciated. Allergies: NKA Next PCP Visit: pending - GI appointment: Today at 1340 Dx: R93.2 - Abnormal findings on diagnostic imaging of liver and biliary tract Additional Diagnosis Notes: - GI referral completed - Contact COD as needed at # Option 3 GENERAL REVIEW OF SYSTEMS Review of systems negative unless otherwise indicated above: Yes 2024 APPOINTMENT CPT CODE Please indicate how this visit was conducted: Audio-Only Please select the reason why an audio-only visit is being performed: Unable to perform Video Please record the total amount of time you spent on this patient visit- Total time includes time spent on preparation, speaking with the patient, documentation, and post-visit coordination of care - This is limited to time spent ON THE DATE OF SERVICE (e.g. does not include time spent on days prior to or after the date of service) 15 - 29 minutes Susanne Lott [facility]
--- NOTE | 2024-08-28 17:46 | RAD REPORT ---
EXAMINATION: ONE VIEW CHEST XR CLINICAL INDICATION: ABDOMINAL DISTENTION TECHNIQUE: Frontal chest projection is submitted. Examination is limited by patient positioning and t echnique. COMPARISON: 01/08/2024 FINDINGS: The lungs are well inflated and clear. Heart is moderately enlarged. No displaced fractures identifie d. IMPRESSION: No acute intrathoracic abnormalities.
[2024-08-28] MEDS ORDERED: ONDANSETRON 4 MG/2 ML VIAL ONE ×2 (17:55→18:35)
[2024-08-28] MEDS ORDERED: FAMOTIDINE 20 MG/2 ML VIAL IV ONE (17:55)
[2024-08-28] MEDS ORDERED: NA CHLORIDE 0.9% 1,000 ML ONE (17:55)
[2024-08-28] MEDS ORDERED: MORPHINE 4 MG/ML SYR ONE (17:55)
[2024-08-28 18:07] LABS: PT Prothrombin Time 12.6 SECONDS (10-13.0); Protime INR 1.11
[2024-08-28 18:09] LABS: Absolute Basophils 0.1 K/uL (0-0.5); Absolute Lymphocytes (CBC) 2.9 K/uL (0.7-4.9); Absolute Monocytes 1.3 K/uL (0.1-1.3); Absolute Neutrophil 7.6 K/uL (1.8-8.0); Basophils % 0.8 % (0-1.3); Eosinophils % 0.3 % (0-4.4); Hemoglobin 14.8 g/dL (13.6-17.9); MCH 28.3 pg (27.0-35.0); MCHC 34.3 g/dL (32.0-36.0); MCV 82.4 fL (80-100); MPV 8.1 fL (7.6-11.3); Monocytes % 11.1 % (3.3-12.3); Neutrophils % 63.8 % (41.7-73.7); Platelets 420 thou/uL (152-406); RBC Red Blood Cell Count 5.22 M/uL (4.33-5.43)
[2024-08-28 18:13] LABS: Specific Gravity 1.028 (1.005-1.030); Sqamous Epithelial <5 /HPF (None Seen); Urine Bacteria None Seen /HPF (<20); Urine Bilirubin NEGATIVE (Negative); Urine Blood Negative (Negative); Urine Clarity Clear (Clear); Urine Color Yellow (Yellow); Urine Culture Reflex Order NOT NEEDED; Urine Glucose NEGATIVE (Negative); Urine Ketones NEGATIVE (Negative); Urine Microscopic Reflex YN ORDER UMIC; Urine Mucus 4+ /HPF (None Seen); Urine Nitrite NEGATIVE (Negative); Urine Protein TRACE (Negative); Urine RBC <5 /HPF (None Seen); Urine Urobilinogen 1+ (Normal); Urine WBC <5 /HPF (<5); Urine pH 5.5 (5.0-7.0)
[2024-08-28] MEDS ORDERED: PIPERACIL/TAZO 3.375 GM VIAL IV ONE (18:13)
[2024-08-28] MEDS ORDERED: NA CHLORIDE 0.9% 100 ML ONE (18:13)
[2024-08-28 18:21] LABS: Albumin 3.2 g/dL (3.4-5.0); Albumin/Globulin Ratio 0.6 (1.1-1.8); Anion Gap 11.4 mEq/L (5.0-15.0); Bilirubin Direct 0.2 mg/dL (0-0.2); Bilirubin Indirect, Calculated 0.3 mg/dL (0.2-0.8); Bilirubin Total 0.5 mg/dL (0.2-1.0); Globulin 5.8 g/dL (2.3-3.5); Magnesium 2.1 mg/dL (1.6-2.4); Potassium 4.4 mEq/L (3.5-5.1); Troponin High Sensitivity 5.5 pg/mL (<58.9)
--- NOTE | 2024-08-28 18:29 | RAD REPORT ---
EXAMINATION: CT ABDOMEN AND PELVIS WITH CONTRAST CLINICAL INDICATION: ABD PAIN TECHNIQUE: CT abdomen and pelvis was performed, after the administration of IV contrast, as per [facility]. Axial, sagittal and coronal reconstructions were obtained. One or more of the following dose reduction techniques were used: Automated exposure control, adjustment of the mA and k V according to patient size, and iterative reconstruction. Unless otherwise specified, incidental findings do not require dedicated imaging follow-up. COMPARISON: 07/18/2024 FINDINGS: LOWER CHEST: The visualized lung bases are clear. LIVER: Multiple masses are present in the liver largest right lobe measuring 7.6 x 9.5 cm, increased in size since prior study, most compatible with metastatic disease. Grossly unremarkable gallbladder. SPLEEN: Normal size. No focal lesion. PANCREAS: No mass, ductal dilation, or des-pancreatic fluid. ADRENALS: Normal; no mass. KIDNEYS: Normal size and contour. No hydronephrosis. Punctate calculus inferior right kidney. GASTROINTESTINAL TRACT: No evidence of free air, significant intra-abdominal free fluid, bowel obstru ction or abscess. APPENDIX: Normal appendix. LYMPH NODES: Pathologically enlarged 24 mm lymph node adjacent to the caudate lobe. MUSCULOSKELETAL: Moderate lower lumbar degenerative changes. ADDITIONAL FINDINGS: Moderate to large fat-containing inguinal hernias. IMPRESSION: Multiple hepatic masses as detailed which have increased in size since 07/18/2024 compatible with enla rging metastatic disease.
[2024-08-28] MEDS ORDERED: HYDROMORPHONE HCL 1 MG/ML INJ ONE ×2 (18:35→23:47)
--- NOTE | 2024-08-28 18:58 | ER ---
Nurse's Notes [facility] Name: Andrey Wells Age: 64 yrs Sex: Male : 1960 Arrival Date: 08/28/2024 Time: 16:28 Bed IW10 Private MD: Diagnosis: Epigastric abdominal tenderness;Secondary malignant neoplasm of liver and intrahepatic bile duct-MULTIPLE HEPATIC MASSES Presentation: 08/28 17:21 Chief complaint: Patient states: BEGAN HAVING PAIN IN THE RT UPPER ABDOMEN AFTER dd2 COLONOSCOPY FRIDAY 08/25. REPORTS NAUSEA, DENIES VOMITING. Coronavirus screen: At this time, the client does not indicate any symptoms associated with coronavirus-19. Ebola Screen: No symptoms or risks identified at this time. Initial Sepsis Screen: Does the patient meet any 2 criteria? No. Patient's initial sepsis screen is negative. Does the patient have a suspected source of infection? No. Patient's initial sepsis screen is negative. Risk Assessment: Do you want to hurt yourself or someone else? Patient reports no desire to harm self or others. Onset of symptoms was August 25, 2024. 17:21 Method Of Arrival: Ambulatory dd2 17:21 Acuity: KANDY 3 dd2 Triage Assessment: 17:23 General: Appears in no apparent distress. uncomfortable, Behavior is calm, cooperative, dd2 appropriate for age. Pain: Complains of pain in right upper quadrant. GI: Abdomen is round non-distended, Abd is non tender X 4 quads Reports upper abdominal pain, nausea. Historical: - Allergies: 17:23 No Known Allergies; dd2 - PMHx: 17:23 diabetes mellitus; Hypercholesterolemia; Hypertensive disorder; Myocardial infarction; dd2 neuropathy; Esophagus cancer (neuropathy); - PSHx: 17:23 back surgery; dd2 - Immunization history:: Adult Immunizations up to date. - Infectious Disease History:: Denies. - Social history:: Smoking status: Patient denies any tobacco usage or history of. - Family history:: not pertinent. Screenin:15 [facility] ED Fall Risk Assessment (Adult) History of falling in the last 3 months, ld1 including since admission No falls in past 3 months (0 pts) Confusion or Disorientation No (0 pts) Intoxicated or Sedated No (0 pts) Impaired Gait No (0 pts) Mobility Assist Device Used No (0 pt) Altered Elimination No (0 pt) Score/Fall Risk Level 0 - 2 = Low Risk Oriented to surroundings, Hourly rounding (assess needs \T\ fall precautionary measures) done. Abuse screen: Denies threats or abuse. Denies injuries from another. Nutritional screening: No deficits noted. Tuberculosis screening: No symptoms or risk factors identified. Assessment: 10:15 General: Appears in no apparent distress. uncomfortable, Behavior is calm, cooperative, ld1 appropriate for age. Pain: Complains of pain in right upper quadrant Pain does not radiate. Pain currently is 10 out of 10 on a pain scale. Quality of pain is described as sharp, shooting, throbbing, Pain began suddenly, Is continuous. 10:15 Neuro: Level of Consciousness is awake, alert, obeys commands, Oriented to person, ld1 place, time, situation. Cardiovascular: Capillary refill < 3 seconds Patient's skin is warm and dry. Rhythm is sinus rhythm. Respiratory: Airway is patent Respiratory effort is even, unlabored. GI: Abdomen is round non-distended, Bowel sounds present X 4 quads. Reports upper abdominal pain. GI: Abdomen is Reports. : No signs and/or symptoms were reported regarding the genitourinary system. EENT: No signs and/or symptoms were reported regarding the EENT system. Derm: No signs and/or symptoms reported regarding the dermatologic system. Musculoskeletal: No signs and/or symptoms reported regarding the musculoskeletal system. 22:00 Reassessment: Patient and/or family updated on plan of care and expected duration. Pain ha1 level reassessed. Patient is alert, oriented x 3, equal unlabored respirations, skin warm/dry/pink. 23:00 Reassessment: Patient and/or family updated on plan of care and expected duration. Pain ha1 level reassessed. Patient is alert, oriented x 3, equal unlabored respirations, skin warm/dry/pink. Vital Signs: 10:15 BP 112 / 59; Pulse 90; Resp 18; Pulse Ox 95% on R/A; Pain 10/10; ld1 17:21 BP 126 / 82; Pulse 95; Resp 16; Temp 98.4; Pulse Ox 98% on R/A; Weight 79.38 kg; Height dd2 5 ft. 0 in. ; Pain 10/; 20:00 BP 122 / 68; Pulse 84; Resp 18; Pulse Ox 97% on R/A; jr13 21:00 BP 96 / 66; Pulse 80; Resp 18; Pulse Ox 97% on R/A; jr13 22:43 BP 108 / 69; Pulse 86; Resp 18; Pulse Ox 96% on R/A; jr13 17:21 Body Mass Index 34.18 (79.38 kg, 152.4 cm) dd2 10:15 Pain Scale: Adult ld1 17:21 Pain Scale: Adult dd2 ED Course: 10:15 Patient has correct armband on for positive identification. Placed in gown. Bed in low ld1 position. Call light in reach. Side rails up X2. correctional facility nurse on. Pulse ox on. NIBP on. Door closed. Noise minimized. Warm blanket given. 10:15 No provider procedures requiring assistance completed. ld1 16:30 Patient arrived in ED. im 16:32 Demetri Figueredo MD is Attending Physician. lennox 16:39 Radiology exam delayed due to lab results not completed at this time. (BUN/Creatinine) jc4 IV insertion attempt and/or patient not having appropriate IV at this time. 17:09 Radiology exam delayed due to lab results not completed at this time. (BUN/Creatinine) nj IV insertion attempt and/or patient not having appropriate IV at this time. 17:23 Triage completed. dd2 17:23 Arm band placed on right wrist. dd2 17:43 XRAY Chest (1 view) In Process Unspecified. EDMS 17:44 Melissa Vasquez, RN is Primary Nurse. ld1 17:55 Initial lab(s) drawn, by me, sent to lab. Inserted saline lock: 20 gauge in right bc6 antecubital area, using aseptic technique. Blood collected. Flushed with 10 mL NS. 18:11 UA Rfx Bandar Cult if indicated Sent. ld1 18:19 CT Abd/Pelvis - IV Contrast Only In Process Unspecified. EDMS 18:[address] Figueredo with [facility] from the [facility] Transfer Center.eb 18:[address] Charles John the hospitalist acquisitions librarian for [facility] with Dr. Figueredo eb for patient transfer consultation. 18:56 US Abdomen Limited In Process Unspecified. EDMS 23:25 [facility], \T\ 184, to 2122 accepting admin Abbie ashley TCC,RN \T\2130. 23:27 Patient was accepted for transport with NELA Sparrow out on calls. vk 23:45 Attending Physician role handed off by Demetri Figueredo MD sp4 23:45 Kenneth Fuentes MD is Attending Physician. sp4 23:51 Provided Education on: Educated on plan of care. jr13 23:51 Patient transferred, IV remains in place. jr13 Administered Medications: 18:10 Drug: NS 0.9% IV 1000 ml IV at 1000 ml once; to be given as a bolus over 60 minutes ld1 Route: IV; Rate: 1000 ml; Site: right antecubital; 18:41 Follow up: Response: No adverse reaction; IV Status: Completed infusion; IV Intake: ld1 1000ml 18:10 Drug: Famotidine IVP 20 mg IVP once; dilute with 10 mL 0.9% NaCl; give over 2 minutes ld1 Route: IVP; Site: right antecubital; 18:41 Follow up: Response: No adverse reaction ld1 18:11 Drug: morphine IVP or IV 4 mg IVP once over 4 mins; VERBAL ORDER PER DR FIGUEREDO Route: ld1 IVP; Infused Over: 4 mins; Site: right antecubital; 18:41 Follow up: Response: No adverse reaction ld1 18:11 Drug: Ondansetron IVP 4 mg IVP once; over 2 minutes Route: IVP; Site: right antecubital;ld1 18:41 Follow up: Response: No adverse reaction ld1 18:40 Drug: HYDROmorphone IVP 1 mg IVP once; VERBAL ORDER PER DR FIGUEREDO Route: IVP; Site: ld1 right antecubital; 18:40 Drug: Ondansetron IVP 4 mg IVP once; over 2 minutes Route: IVP; Site: right antecubital;ld1 18:41 Drug: Piperacillin-Tazobactam IVPB 3.375 grams IVPB once over 60 mins; (mix in NS 100 ld1 mL) Route: IVPB; Infused Over: 60 mins; Site: right antecubital; 23:48 Drug: HYDROmorphone IVP 1 mg IVP once Route: IVP; Site: right antecubital; jr13 Medication: 10:15 VIS not applicable for this client. ld1 Intake: 18:41 IV: 1000ml; Total: 1000ml. ld1 Outcome: 18:57 ER care complete, transfer ordered by MD. high 23:50 Transferred by ground EMS to [facility], [facility], 13 23:50 Condition: stable 23:50 Discharge instructions given to patient, 08/29 00:33 Patient left the ED. cp4 Signatures: Dispatcher [employer] EDMS Demetri Figueredo MD MD cha Jordan, Nathan nj Botello, Elizabeth eb Sims, Lauren, RN RN ld1 Ileana Rutledge RN RN ha1 Gosia Recinos Sergey, MD MD sp4 Ashley Hoffmann Christina cp4 Lisa Jaramillo, Yaakov jc4 TAMIKA SNOWDEN RN RN dd2 Radha Sequeira RN RN jr13
--- NOTE | 2024-08-28 18:58 | EDPHYS ---
Physician Documentation [facility] Name: Andrey Wells Age: 64 yrs Sex: Male : 1960 Arrival Date: 08/28/2024 Time: 16:28 Bed IW10 Private MD: ED Physician Kenneth Fuentes HPI: 08/28 18:32 This 64 yrs old Male presents to ER via Ambulatory with complaints of lennox Abdominal Pain. 18:32 The patient presents with abdominal pain in the epigastric area, in the upper abdomen, lennox abdominal distention in the upper abdomen, in the lower abdomen. Onset: The symptoms/episode began/occurred 3 day(s) ago. The symptoms do not radiate. Associated signs and symptoms: Pertinent positives: nausea and vomiting. The symptoms are described as constant, crampy. Modifying factors: The symptoms are alleviated by nothing, the symptoms are aggravated by food, movement, pressure. Severity of pain: At its worst the pain was moderate in the emergency department the pain has improved mildly. The patient has not experienced similar symptoms in the past. Historical: - Allergies: 17:23 No Known Allergies; dd2 - PMHx: 17:23 diabetes mellitus; Hypercholesterolemia; Hypertensive disorder; Myocardial infarction; dd2 neuropathy; Esophagus cancer (neuropathy); - PSHx: 17:23 back surgery; dd2 - Immunization history:: Adult Immunizations up to date. - Infectious Disease History:: Denies. - Social history:: Smoking status: Patient denies any tobacco usage or history of. - Family history:: not pertinent. ROS: 18:32 Constitutional: Negative for fever, chills, and weight loss, Eyes: Negative for injury, lennox pain, redness, and discharge, ENT: Negative for injury, pain, and discharge, Neck: Negative for injury, pain, and swelling, Cardiovascular: Negative for chest pain, palpitations, and edema, Respiratory: Negative for shortness of breath, cough, wheezing, and pleuritic chest pain, Back: Negative for injury and pain, : Negative for injury, bleeding, discharge, and swelling, MS/Extremity: Negative for injury and deformity, Skin: Negative for injury, rash, and discoloration, Neuro: Negative for headache, weakness, numbness, tingling, and seizure, Psych: Negative for depression, anxiety, suicide ideation, homicidal ideation, and hallucinations, Allergy/Immunology: Negative for hives, rash, and allergies, Endocrine: Negative for neck swelling, polydipsia, polyuria, polyphagia, and marked weight changes, 18:32 Abdomen/GI: Positive for abdominal pain, nausea, abdominal cramps, abdominal distension, Exam: 18:32 Constitutional: This is a well developed, well nourished patient who is awake, alert, lennox and in no acute distress. Head/Face: Normocephalic, atraumatic. Eyes: Pupils equal round and reactive to light, extra-ocular motions intact. Lids and lashes normal. Conjunctiva and sclera are non-icteric and not injected. Cornea within normal limits. Periorbital areas with no swelling, redness, or edema. ENT: Nares patent. No nasal discharge, no septal abnormalities noted. Tympanic membranes are normal and external auditory canals are clear. Oropharynx with no redness, swelling, or masses, exudates, or evidence of obstruction, uvula midline. Mucous membranes moist. Neck: Trachea midline, no thyromegaly or masses palpated, and no cervical lymphadenopathy. Supple, full range of motion without nuchal rigidity, or vertebral point tenderness. No Meningismus. Chest/axilla: Normal chest wall appearance and motion. Nontender with no deformity. No lesions are appreciated. Cardiovascular: Regular rate and rhythm with a normal S1 and S2. No gallops, murmurs, or rubs. Normal PMI, no JVD. No pulse deficits. Respiratory: Lungs have equal breath sounds bilaterally, clear to auscultation and percussion. No rales, rhonchi or wheezes noted. No increased work of breathing, no retractions or nasal flaring. Back: No spinal tenderness. No costovertebral tenderness. Full range of motion. Male : Normal genitalia with no discharge or lesions. Skin: Warm, dry with normal turgor. Normal color with no rashes, no lesions, and no evidence of cellulitis. MS/ Extremity: Pulses equal, no cyanosis. Neurovascular intact. Full, normal range of motion., bilateral aka Neuro: Awake and alert, GCS 15, oriented to person, place, time, and situation. Cranial nerves II-XII grossly intact. Motor strength 5/5 in all extremities. Sensory grossly intact. Cerebellar exam normal. Normal gait. Psych: Awake, alert, with orientation to person, place and time. Behavior, mood, and affect are within normal limits. 18:32 ECG was reviewed by the Attending Physician. 18:32 Abdomen/GI: Inspection: distension, that is mild, that is moderate, Bowel sounds: active, all quadrants, Palpation: moderate abdominal tenderness, in the epigastric area, right upper quadrant and left upper quadrant, Liver: no appreciated palpable abnormalities, Hernia: not appreciated, Vital Signs: 10:15 BP 112 / 59; Pulse 90; Resp 18; Pulse Ox 95% on R/A; Pain 10/10; ld1 17:21 BP 126 / 82; Pulse 95; Resp 16; Temp 98.4; Pulse Ox 98% on R/A; Weight 79.38 kg; Height dd2 5 ft. 0 in. ; Pain 10/10; 20:00 BP 122 / 68; Pulse 84; Resp 18; Pulse Ox 97% on R/A; jr13 21:00 BP 96 / 66; Pulse 80; Resp 18; Pulse Ox 97% on R/A; jr13 22:43 BP 108 / 69; Pulse 86; Resp 18; Pulse Ox 96% on R/A; jr13 17:21 Body Mass Index 34.18 (79.38 kg, 152.4 cm) dd2 10:15 Pain Scale: Adult ld1 17:21 Pain Scale: Adult dd2 MDM: 16:32 Medical Screening Exam initiated lennox 17:29 Medical Screening Exam initiated lennox 18:41 Differential diagnosis: bowel obstruction, cholecystitis, Cholelithiasis, lennox diverticulitis, gastritis, Mesenteric ischemia or infarction, non-specific abd pain, pancreatitis, Peptic Ulcer Disease, Perf. Duodenal Ulcer, Perf. Gastric Ulcer, Peritonitis, Prostatitis, Pyelonephritis, Ureterolithiasis, urinary tract infection. Data reviewed: vital signs, nurses notes, lab test result(s), EKG, radiologic studies, CT scan, plain films. Consideration of Admission/Observation Patient was admitted/placed on observation. Escalation of care including admission/observation considered. I considered the following discharge prescriptions or medication management in the emergency department Medications were administered in the Emergency Department. See MAR. Independent interpretation of the following test(s) in the Emergency Department EKG: See my EKG interpretation above X-Ray: My interpretation is CXR. CT Scan: My interpretation is CT ABD/PEL. 08/28 16:34 Order name: Basic Metabolic Panel; Complete Time: 18:27 [facility] 08/28 16:34 Order name: CBC with Diff; Complete Time: 18:27 lennox 08/28 16:34 Order name: LFT's; Complete Time: 18:27 [facility] 08/28 16:34 Order name: Magnesium; Complete Time: 18:27 [facility] 08/28 16:34 Order name: NT PRO-BNP; Complete Time: 18:27 08/28 16:34 Order name: PT-INR; Complete Time: 18:27 08/28 16:34 Order name: Troponin HS; Complete Time: 18:27 08/28 16:34 Order name: UA Rfx Bandar Cult if indicated; Complete Time: 18:27 [facility] 08/28 16:34 Order name: Lipase; Complete Time: 18:27 [facility] 08/28 16:34 Order name: XRAY Chest (1 view); Complete Time: 18:27 [facility] 08/28 16:35 Order name: CT Abd/Pelvis - IV Contrast Only; Complete Time: 18:29 [facility] 08/28 18:11 Order name: US Abdomen Limited 08/28 16:34 Order name: EKG; Complete Time: 16:35 [facility] 08/28 16:34 Order name: Cardiac monitoring; Complete Time: 17:53 [facility] 08/28 16:34 Order name: EKG - Nurse/Tech; Complete Time: 17:53 [facility] 08/28 16:34 Order name: IV Saline Lock; Complete Time: 17:53 [facility] 08/28 16:34 Order name: Labs collected and sent; Complete Time: 17:53 [facility] 08/28 16:34 Order name: O2 Per Protocol; Complete Time: 17:53 [facility] 08/28 16:34 Order name: O2 Sat Monitoring; Complete Time: 17:53 [facility] EC:32 Rate is 86 beats/min. Rhythm is regular. QRS [place] is Normal. [place] interval is normal. QRS lennox interval is normal. QT interval is normal. No Q waves. T waves are Normal. No ST changes noted. Clinical impression: NSR w/ Non-specific ST/T Changes and No evidence of ischemia. Interpreted by me. Reviewed by me. Administered Medications: 18:10 Drug: NS 0.9% IV 1000 ml IV at 1000 ml once; to be given as a bolus over 60 minutes ld1 Route: IV; Rate: 1000 ml; Site: right antecubital; 18:41 Follow up: Response: No adverse reaction; IV Status: Completed infusion; IV Intake: ld1 1000ml 18:10 Drug: Famotidine IVP 20 mg IVP once; dilute with 10 mL 0.9% NaCl; give over 2 minutes ld1 Route: IVP; Site: right antecubital; 18:41 Follow up: Response: No adverse reaction ld1 18:11 Drug: morphine IVP or IV 4 mg IVP once over 4 mins; VERBAL ORDER PER DR FIGUEREDO Route: ld1 IVP; Infused Over: 4 mins; Site: right antecubital; 18:41 Follow up: Response: No adverse reaction ld1 18:11 Drug: Ondansetron IVP 4 mg IVP once; over 2 minutes Route: IVP; Site: right antecubital;ld1 18:41 Follow up: Response: No adverse reaction ld1 18:40 Drug: HYDROmorphone IVP 1 mg IVP once; VERBAL ORDER PER DR FIGUEREDO Route: IVP; Site: ld1 right antecubital; 18:40 Drug: Ondansetron IVP 4 mg IVP once; over 2 minutes Route: IVP; Site: right antecubital;ld1 18:41 Drug: Piperacillin-Tazobactam IVPB 3.375 grams IVPB once over 60 mins; (mix in NS 100 ld1 mL) Route: IVPB; Infused Over: 60 mins; Site: right antecubital; 23:48 Drug: HYDROmorphone IVP 1 mg IVP once Route: IVP; Site: right antecubital; jr13 Disposition Summary: 08/28/24 18:57 Transfer Ordered Notes: Transfer Location: [facility] lennox Reason: Higher level of care lennox Condition: Fair lennox Problem: new lennox Symptoms: have improved lennox Accepting Physician: TO [facility](08/29/24 00:32) cp4 Diagnosis - Epigastric abdominal tenderness lennox - Secondary malignant neoplasm of liver and intrahepatic bile duct - MULTIPLE HEPATIC lennox MASSES Forms: - Medication Reconciliation Form lennox - SBAR form lennox Signatures: Dispatcher [employer] Demetri Kitchen MD MD cha Sims, Lauren, RN RN ld1 Kenneth Fuentes MD MD sp4 Aleshia Lozano cp4 TAMIKA SNOWDEN RN RN dd2 Radha Sequeira RN RN jr13 Corrections: (The following items were deleted from the chart) 08/29 00:32 08/28 18:57 TO GRISELDA landeros
--- NOTE | 2024-08-28 19:06 | RAD REPORT ---
EXAM: Right upper quadrant ultrasound. CLINICAL HISTORY: ABD PAIN COMPARISON: None. FINDINGS: Gallbladder: There is some thickening of the gallbladder wall. No stones seen. Bile ducts: No intrahepatic or extrahepatic biliary dilatation. Common bile duct measures 4 mm. Limited imaging of the liver shows no concerning finding. IMPRESSION: Thickening of the gallbladder wall without stones seen.
[2024-08-29 00:40] VITALS: TEMP 98.4
[2024-08-29 00:55] VITALS: BP 108/69; O2SAT 96
--- NOTE | 2024-09-01 12:30 | EKG ---
Test Date: 2024-08-28 Test Time: 17:51:41 Social Media Sr Strategy Manager: Laury GOMEZ MEASUREMENT RESULTS: Intervals: Rate: 86 NM: 170 QRSD: 78 QT: 384 QTc: 459 [place]: P: 31 NM: 170 QRS: 45 T: 28 INTERPRETIVE STATEMENTS: Normal sinus rhythm Normal ECG Compared to ECG 07/18/2024 09:18:00 No significant changes Electronically Signed On 09-01-24 12:23:22 CDT by Alejandro Mari
== END 2024-08-29 00:33 | disposition short-term general hospital (02) ==
LOC: ER 16:28
DX: C78.7 Secondary malignant neoplasm of liver and intrahepatic bile duct (principal); K76.89 Other specified diseases of liver; E11.9 Type 2 diabetes mellitus without complications; I10 Essential (primary) hypertension
CPT/HCPCS: 96361; 93005; 85025; 81001; 80048; 36415; 83735; 85610; 80076; 84484; 83690; 83880; 74177; 71045; 76705; 96375; 96374; 99285; Q9967; J2543; J1171 ×2; J2405 ×2; J7030